=== PATIENT | male | born 1950 | race Asian ===

== ENCOUNTER 2016-04-19 15:24 | Inpatient (IN) | payer BC, MEDICARE ==
[~2016-04-19] VITALS: Ht 167.6 cm; Wt 74.0 kg
[2016-04-19] MEDS ORDERED: ASPIRIN 81 MG TAB PO STA (15:33)
[2016-04-19] MEDS ORDERED: morphine 4 MG/ML VIAL IV STA (15:33)
[2016-04-19] MEDS ORDERED: NITROGLYCERIN 2% 1 GM OINT PKT TD STA (15:33)
[2016-04-19] MEDS ORDERED: ONDANSETRON 4 MG INJ IV STA (15:33)
[2016-04-19 15:53] LABS: BASOPHILS % 0.3 % (0.0-2.0); EOSINOPHILS # 0.1 10^3/ul (0.0-0.5); EOSINOPHILS % 1.1 % (0.0-7.0); HEMATOCRIT 46.6 % (42.0-52.0); LYMPHOCYTES # 1.4 10^3/ul (0.8-2.9); LYMPHOCYTES % 15.6 % (15.0-51.0); MEAN CORPUSCULAR HEMOGLOBIN 30.5 pg (29.0-33.0); MEAN CORPUSCULAR HGB CONC 34.4 g/dl (32.0-37.0); MEAN CORPUSCULAR VOLUME 88.6 fl (82.0-101.0); MEAN PLATELET VOLUME 8.2 fl (7.4-10.4); MONOCYTE # 0.6 10^3/ul (0.3-0.9); NEUTROPHIL # 6.9 10^3/ul (1.6-7.5); PLATELET COUNT 225 10^3/UL (140-440); RED BLOOD COUNT 5.26 10^6/ul (4.70-6.10); RED CELL DISTRIBUTION WIDTH 13.2 % (11.5-14.5); UNCORRECTED WBC 9.1 10^3/ul (4.8-10.8); WHITE BLOOD COUNT 9.1 10^3/ul (4.8-10.8)
[2016-04-19 15:54] LABS: CONDITION 1
[2016-04-19 16:03] LABS: INR 0.96; PROTIME 12.8 Sec (12.2-14.2)
[2016-04-19 16:04] LABS: PARTIAL THROMBOPLASTIN TIME 40.2 Sec (25.0-35.0)
[2016-04-19 16:05] LABS: CREATININE 0.88 mg/dl (0.61-1.24)
[2016-04-19 16:06] LABS: CALCIUM 9.3 mg/dl (8.4-10.2)
[2016-04-19 16:20] LABS: TROPONIN-I 3.97 ng/ml (0.00-0.12)
[2016-04-19] MEDS ORDERED: ENOXAPARIN 80 MG/0.8 ML SYG SC SCH (16:30)
--- NOTE | 2016-04-19 16:51 | RADRPT ---
PROCEDURE: XR Chest. CLINICAL INDICATION: Chest pain TECHNIQUE: Chest AP portable. COMPARISON: No comparison available. FINDINGS: The mediastinal structures are unremarkable. There is mild cardiomegaly. The pulmonary vascularity is normal. The lung do are unremarkable. No consolidation is identified. The pleural spaces are unremarkable. The axial skeleton is unremarkable. IMPRESSION: Mild cardiomegaly No active intrathoracic disease. RPTAT: HGDB .Sai Soares MD, MD Date Time Electronically viewed and signed by .Sai Soares MD, MD on 04/19/2016 16:51 .B/
--- NOTE | 2016-04-19 16:59 | ERA ---
ER Documentation Chief Complaint Date/Time DATE: 04/19/16 TIME: 16:53 Chief Complaint BROUGHT IN VIA EMS DUE TO CHEST PAIN HPI 66-year-old male history of remote smoking, no hypertension or diabetes who presents with chest pain. He describes approximately 1 week of cough and congestion that is dry and nonproductive. He completed an outpatient course of antibiotics. Over the past 48 hours he does note worsening chest pain. He describes it as pressure-like but it is worse with movement and worse with rotation. He denies any pleuritic pain, no calf pain. He occasionally has exertional symptoms. The patient was given aspirin and nitroglycerin in the field with no significant improvement but upon arrival the patient is mostly chest pain-free. ROS All systems reviewed and are negative except as per history of present illness. PMhx/Soc Medical and Surgical Hx: pt denies Medical Hx, pt denies Surgical Hx Hx Alcohol Use: No Hx Substance Use: No Hx Tobacco Use: Yes (quit 20 yrs) Smoking Status: Former smoker FmHx Family History: No diabetes Physical Exam Vitals Vital Signs Date Time Temp Pulse Resp B/P Pulse Ox O2 Delivery O2 Flow Rate FiO2 04/19/16 15:46 98.5 110 18 154/115 97 04/19/16 15:45 Nasal Cannula 2 04/19/16 15:45 72 20 139/88 98 Room Air Physical Exam General: Well developed, well nourished, no acute distress Head: Normocephalic, atraumatic. Eyes: Pupils equally reactive, EOM intact ENT: Moist mucous membranes Neck: Supple, no lymphadenopathy Respiratory: Lungs clear bilaterally, no distress Cardiovascular: RRR, no murmurs, rubs, or gallops Abdominal: Soft, non-tender, non-distended, no peritoneal signs : Deferred MSK: No edema, no unilateral swelling, 5/5 strength Neurologic: Alert and oriented, moving all extremities, normal speech, no focal weakness, no cerebellar signs Skin: No rash Psych: Normal mood Result Diagram: 04/19/16 1545 04/19/16 1545 Results 24 hrs Laboratory Tests Test 04/19/16 15:45 Activated Partial Thromboplast Time 40.2Sec Anion Gap 18 Basophils # 0.010^3/ul Basophils % 0.3% Blood Urea Nitrogen 18mg/dl Calcium Level 9.3mg/dl Carbon Dioxide Level 24mmol/L Chloride Level 105mmol/L Creatinine 0.88mg/dl Eosinophils # 0.110^3/ul Eosinophils % 1.1% Glucose Level 119mg/dl Hematocrit 46.6% Hemoglobin 16.0g/dl INR International Normalized Ratio 0.96 Lymphocytes # 1.410^3/ul Lymphocytes % 15.6% Mean Corpuscular Hemoglobin 30.5pg Mean Corpuscular Hemoglobin Concent 34.4g/dl Mean Corpuscular Volume 88.6fl Mean Platelet Volume 8.2fl Monocytes # 0.610^3/ul Monocytes % 7.0% Neutrophils # 6.910^3/ul Neutrophils % 76.0% Nucleated Red Blood Cells # 0.010^3/ul Nucleated Red Blood Cells % 0.0/100WBC Platelet Count 71581^3/UL Potassium Level 4.0mmol/L Prothrombin Time 12.8Sec Prothrombin Time Ratio 1.0 Red Blood Count 5.2610^6/ul Red Cell Distribution Width 13.2% Sodium Level 143mmol/L Troponin I 3.970ng/ml White Blood Count 9.110^3/ul Current Medications Medications (Trade) Dose Ordered Sig/Shahnaz Route PRN Reason Start Time Stop Time Status Last Admin Dose Admin Aspirin (Aspirin) 162 mg ONCE STAT PO 04/19/16 15:33 04/19/16 15:35 DC 04/19/16 16:30 Nitroglycerin (Nitroglycerin 2% Oint) 1 inch ONCE STAT TD 04/19/16 15:33 04/19/16 15:35 DC 04/19/16 16:30 Morphine Sulfate (morphine) 4 mg ONCE STAT IV 04/19/16 15:33 04/19/16 15:35 DC 04/19/16 16:31 Ondansetron HCl (Zofran Inj) 4 mg ONCE STAT IV 04/19/16 15:33 04/19/16 15:35 DC 04/19/16 16:30 Enoxaparin Sodium (Lovenox) 70 mg ONCE SC 04/19/16 16:30 04/19/16 16:47 Procedures/MDM EKG, MONITORS, & DIAGNOSTIC IMAGING: EKG: I reviewed and interpreted a 12-lead EKG. Rhythm: Normal sinus rhythm Ectopy: None Intervals: No abnormalities ST segments: Borderline ST segment elevation in lead V3, no contiguous lead ST elevations T waves: T-wave inversions in the precordial lateral leads Repeat EKG: EKG: I reviewed and interpreted a 12-lead EKG. Rhythm: Normal sinus rhythm Ectopy: None Intervals: No abnormalities ST segments: Borderline ST segment elevation in lead V3, no contiguous lead ST elevations, unchanged T waves: T-wave inversions in the precordial lateral leads Chest x-ray: I reviewed and interpreted a 1 view of the chest Mediastinum: No enlargement Cardiac silhouette: No cardiomegaly Airspace: Clear lung do bilaterally without evidence of pneumothorax Bones: No evidence of fracture LAB INTERPRETATION: Elevated troponin MEDICAL DECISION MAKING: The patient's history, physical exam and clinical presentation is concerning for possible cardiogenic etiology and acute coronary syndrome. The patient's EKG was initially very concerning for possible acute cardiac injury. However, the patient's EKG only had ST segment elevation greater than 1 mm and one lead. T-wave inversions were also concerning. However, additionally the patient had atypical presentation given that he had very reproducible symptoms. The patient was chest pain-free upon arrival. Regardless emergent phone call to cardiology was made. Based on the patient's clinical exam and history and risk factors, I have a much lower clinical concern for pulmonary embolism, acute aortic dissection, pneumothorax, pneumonia, cardiac tamponade HEART Score: 6 MACE Rate: 16.6% Shared Decision Making: We had a conversation regarding risk stratification, MACE rate, and the risks, benefits, alternatives of disposition planning options. Disposition planning: Inpatient hospitalization is necessary and recommended ER COURSE: Upon arrival the patient's EKG was very concerning for possible anterior lesion. However, the patient was chest pain-free. Please see timing section below however I had a conversation with Dr. Reed, the on-call manager semiconductor. She was kind enough to review the patient's EKG and history. She felt that this did not meet STEMI code activation criteria. Given that it was only 1-lead I agree and the patient was chest pain-free. His repeat EKG was unchanged. His troponin however came back elevated. Dr. Reed was again notified. She states that the patient will benefit from inpatient cardiology consultation and likely nonemergent cath. She recommends medical optimization and Lovenox. I believe this is reasonable. The patient is chest pain-free, hemodynamically stable and resting comfortably. Timing section: EKG #1 at 1532 EKG #2 at [address] Reed at [address] Reed at 1621 The patient had his aspirin completed, he was given nitroglycerin, pain medication as well as Lovenox as documented above. I kept the patient and/or family informed of laboratory and diagnostic imaging results throughout the emergency room course. DISPOSITION PLAN: Stable for telemetry admission. Given that the patient has no active chest pain , no dynamic EKG changes. CONSULTATION: Accepting care team and consultations: I discussed the current laboratory data, diagnostic imaging and emergency care provided. Admitting team: Dr. Marks Admitting team indication: Insurance directed Consulting services: Cardiology, Dr. Reed Critical Care Note: Total time: 32 minutes Indication/Organ System Threat: Non-ST elevation myocardial infarction I spent the above amount of critical care time with the patient, not including billable procedures. This included chart review, consultations, repeat bedside evaluations, and titration of appropriate medications to prevent cardiopulmonary or respiratory collapse. Departure Diagnosis: Primary Impression: Non-ST elevation myocardial infarction (NSTEMI) Additional Impression: Abnormal EKG Condition: Stable JARVIS ASH MD Apr 19, 2016 16:59
[2016-04-19] MEDS ORDERED: LEVO750T8 PO (17:41)
[2016-04-19] MEDS ORDERED: ACETAMINOPHEN 325 MG TAB PO PRN ×2 (18:30→19:30)
[2016-04-19] MEDS ORDERED: ONDANSETRON 4 MG INJ IV PRN ×2 (18:30→19:30)
[2016-04-19] MEDS ORDERED: HEPARIN 1000 UNITS/ML 10 ML INJ IV ONE (19:30)
[2016-04-19] MEDS ORDERED: HEPARIN 1000 UNITS/ML 10 ML INJ IV PRN (19:30)
[2016-04-19] MEDS ORDERED: morphine 4 MG/ML VIAL IV PRN (19:30)
[2016-04-19] MEDS ORDERED: NITROGLYCERIN (SL) 0.4 MG TAB SL PRN (19:30)
[2016-04-19] MEDS ORDERED: NACL 0.9% 3 ML SYG IV SCH (19:30)
[2016-04-19] MEDS ORDERED: DOCUSATE SODIUM 100 MG CAP PO PRN (19:30)
[2016-04-19] MEDS ORDERED: HEPARIN 25000 UNITS/250 ML 250 ML IV SCH (19:30)
[2016-04-19] MEDS ORDERED: morphine 2 MG INJ IV PRN (19:30)
--- NOTE | 2016-04-19 20:04 | HP ---
DATE OF ADMISSION: 04/19/2016 CHIEF COMPLAINT: Chest pain. HISTORY OF PRESENT ILLNESS: The patient is a 66-year-old male with no medical history. The patient had been complaining of a fever 3 days ago as well as a cough. He was given antibiotics and a coug h syrup. The patient's chest pain improved when he started the cough syrup but it returned again th afternoon. The patient was picked up by paramedics, was given nitroglycerin and he stated that h is chest pain did improve after the nitroglycerin. In the ED the patient did have mild elevation of the troponin at 3.9, questionable ST elevation in V3 but it was not noted in any other leads and no t reciprocated. Dr. Reed of interventional cardiology was called as she was on STEMI call and d id not feel that there was a STEMI and recommended inpatient cardiology evaluation. The patient cur rently does report some pressure-like chest pain in the upper chest. There is no radiation of pain. There is no cardiac history in the past. He denies any shortness of breath, diaphoresis, nausea, vomiting, fevers or chills at this time. PAST MEDICAL HISTORY: Denies. PAST SURGICAL HISTORY: Denies. HOME MEDICATIONS: Was just given Phenergan with codeine recently as well as the antibiotic, otherwi se no chronic home meds. ALLERGIES: NO KNOWN DRUG ALLERGIES. FAMILY HISTORY: Denies any cardiac history. SOCIAL HISTORY: Denies any alcohol, tobacco, or drug abuse. REVIEW OF SYSTEMS: A 12-point review of systems negative except for that as listed in HPI. PHYSICAL EXAMINATION: VITAL SIGNS: Temperature is 98.5, pulse 97, respirations 20, blood pressure 116/79, saturation 96% on room air. GENERAL: No acute distress, alert and oriented. HEENT: Normocephalic, atraumatic. LUNGS: Clear to auscultation. CARDIOVASCULAR: Regular rate and rhythm. ABDOMEN: Nondistended, nontender, soft. EXTREMITIES: No clubbing, cyanosis, or edema. LABORATORIES: White count is 9.1, hemoglobin is 6.0. Chemistry within normal limits except for tro ponin 3.9, anion gap is 18. INR is 0.96. DIAGNOSTICS: Chest x-ray shows mild cardiomegaly, no active intrathoracic disease. EKG shows sinus rhythm, borderline ST segment elevation in lead V3. No lead ST elevations. T-wave inversion s in precordial lateral leads. ASSESSMENT AND PLAN: 1. Non-ST elevation myocardial infarction. The patient will start on a heparin drip. No indicatio n for urgent cardiac catheterization. We will consult Dr. tSearns for inpatient cardiology evalu ation. Also, put the patient on statin. We will check liver profile as well as A1c. Give the alba ent morphine and nitroglycerin and a beta shaina. 2. Prophylaxis. Heparin drip. Dictated By: ERI DIXON MD BS/NTS Conf#: [id number] DID#: [id number]
[2016-04-19 20:07] LABS: INR 0.98
[2016-04-19 20:08] LABS: PARTIAL THROMBOPLASTIN TIME 41.1 Sec (25.0-35.0)
[2016-04-19 20:29] LABS: CK-MB 11.9 ng/ml (0.0-2.4); TROPONIN-I 4.02 ng/ml (0.00-0.12)
[2016-04-19 21:42] VITALS: PULSE 87
[2016-04-19 21:45] VITALS: Ht 167.6 cm; Wt 74.0 kg
[2016-04-19] MEDS: DEXTROSE 5%-0.45% NACL 1,000 ML IV SCH (22:05)
[2016-04-19] MEDS: ATORVASTATIN 80 MG TAB PO SCH (22:05)
[2016-04-20] VITALS (28 sets, daily range): BP systolic 104–146; BP diastolic 62–105; PULSE 67–106; RESP 11–23
[2016-04-20] MEDS ORDERED: LORAZEPAM 2 MG INJ IV ONE (02:40)
[2016-04-20 03:40] LABS: BASOPHILS % 0.5 % (0.0-2.0); EOSINOPHILS # 0.2 10^3/ul (0.0-0.5); HEMATOCRIT 44.3 % (42.0-52.0); LYMPHOCYTES # 2.5 10^3/ul (0.8-2.9); MEAN CORPUSCULAR HEMOGLOBIN 30.5 pg (29.0-33.0); MEAN CORPUSCULAR HGB CONC 33.9 g/dl (32.0-37.0); MEAN CORPUSCULAR VOLUME 90.1 fl (82.0-101.0); MEAN PLATELET VOLUME 8.3 fl (7.4-10.4); MONOCYTE # 0.9 10^3/ul (0.3-0.9); MONOCYTES % 9.1 % (0.0-11.0); NEUTROPHIL # 6.7 10^3/ul (1.6-7.5); NEUTROPHILS % 64.4 % (39.0-77.0); PLATELET COUNT 221 10^3/UL (140-440); RED BLOOD COUNT 4.91 10^6/ul (4.70-6.10); UNCORRECTED WBC 10.4 10^3/ul (4.8-10.8); WHITE BLOOD COUNT 10.4 10^3/ul (4.8-10.8)
[2016-04-20 03:45] LABS: ALBUMIN 3.5 g/dl (3.3-4.9)
[2016-04-20 03:48] LABS: ALBUMIN/GLOBULIN RATIO 1.09; BILIRUBIN,INDIRECT 0.4 mg/dl (0-1.1); BILIRUBIN,TOTAL 0.4 mg/dl (0.2-1.3); CREATININE 0.93 mg/dl (0.61-1.24); TOTAL PROTEIN 6.7 g/dl (6.1-8.1)
[2016-04-20 03:49] LABS: CHOL/HDL RATIO 5.5 RATIO; MAGNESIUM 1.9 mg/dl (1.7-2.5); PHOSPHORUS 5.1 mg/dl (2.5-4.9)
[2016-04-20 04:02] LABS: CK-MB 30.9 ng/ml (0.0-2.4); TROPONIN-I 15.2 ng/ml (0.00-0.12)
[2016-04-20 04:18] LABS: CONDITION 1
[2016-04-20 04:20] LABS: T3 UPTAKE 32.7 % (23.5-40.5)
[2016-04-20] MEDS ORDERED: HEPARIN 1000 UNITS/ML 10 ML INJ ONE (06:56)
[2016-04-20] MEDS ORDERED: MIDAZOLAM 1 MG/ML 2 ML INJ ONE (06:56)
[2016-04-20] MEDS ORDERED: IODIXANOL LOCM 100 ML BTL ONE (06:56)
[2016-04-20] MEDS ORDERED: LIDOCAINE 1% (MDV) 20 ML INJ ONE (06:56)
[2016-04-20] MEDS ORDERED: IODIXANOL LOCM 50 ML BTL ONE (06:56)
[2016-04-20] MEDS ORDERED: SOD CHLORIDE 0.9% 500 ML ONE (06:57)
[2016-04-20] MEDS ORDERED: FENTAnyl 50 MCG/ML VIAL ONE (06:57)
[2016-04-20] MEDS ORDERED: VERAPAMIL 5 MG INJ ONE (06:57)
[2016-04-20] MEDS ORDERED: NITROGLYCERIN (IC) 100 MCG/ML INJ ONE (06:57)
--- NOTE | 2016-04-20 07:25 | CONS ---
Date/Time of Note Date/Time of Note DATE: 04/20/16 TIME: 07:19 Assessment/Plan Assessment/Plan Chief Complaint/Hosp Course NSTEMI: Trop up to 15. Cath this am for high risk ACS. Suspect LAD. Pt and agreeable -to cath this am -will adjust cardiac meds post procedure Problems: Consultation Date/Type/Reason Admit Date/Time Apr 19, 2016 at 18:03 Date of Consultation: Apr 20, 2016 Type of Consultation: Cardiology Reason for Consultation NSTEMI Referring Provider: ERI DIXON Hx of Present Illness 66 yo M with no known past medical history who presented with cough and chest pain and was found to have an NSTEMI. The pt notes that he has been having on and off chest pressure since Sunday (3 days ago). No SOB. Possible fevers. His trops have continued to rise and are up to 15 this am. He is currently asymptomatic. He understands the risks/benefits of cardiac cath and wishes to proceed. per HPI Past Medical History Medical History: no pertinent history Social History Smoking Status: Former smoker Exam/Review of Systems Vital Signs Vitals Vital Signs Date Time Temp Pulse Resp B/P Pulse Ox O2 Delivery O2 Flow Rate FiO2 04/20/16 04:26 87 04/20/16 04:00 98.2 20 124/66 97 Room Air 04/19/16 21:00 2.0 Intake and Output 04/19/16 04/19/16 04/20/16 15:00 23:00 07:00 Intake Total 950 ml Output Total 750 ml Balance 200 ml Exam Constitutional: alert, oriented Psych: no complaints Head: atraumatic, normocephalic Neck: jvd (7cm) Respiratory: crackles/rales (mild) Cardiovascular: regular rate and rhythm, No edema, No systolic murmur Gastrointestinal: non-tender, soft Extremities: normal pulses Neurological: nl mental status, nl speech Skin: No rash or lesions Results EKG: V3 with mild YULISSA and q wave, V4-V6 with deep TW inversions. Result Diagram: 04/20/16 0308 04/20/16 0300 Results 24 hrs Laboratory Tests Test 04/19/16 15:45 04/19/16 19:20 04/19/16 20:00 04/20/16 03:00 Activated Partial Thromboplast Time 40.2 H 41.1 H Anion Gap 18 H 15 Basophils # 0.0 Basophils % 0.3 Blood Urea Nitrogen 18 19 Calcium Level 9.3 9.0 Carbon Dioxide Level 24 27 Chloride Level 105 107 Creatinine 0.88 0.93 Eosinophils # 0.1 Eosinophils % 1.1 Glucose Level 119 106 Hematocrit 46.6 Hemoglobin 16.0 INR International Normalized Ratio 0.96 0.98 Lymphocytes # 1.4 Lymphocytes % 15.6 Mean Corpuscular Hemoglobin 30.5 Mean Corpuscular Hemoglobin Concent 34.4 Mean Corpuscular Volume 88.6 Mean Platelet Volume 8.2 Monocytes # 0.6 Monocytes % 7.0 Neutrophils # 6.9 Neutrophils % 76.0 Nucleated Red Blood Cells # 0.0 Nucleated Red Blood Cells % 0.0 Platelet Count 225 Potassium Level 4.0 4.0 Prothrombin Time 12.8 13.0 Prothrombin Time Ratio 1.0 1.0 Red Blood Count 5.26 Red Cell Distribution Width 13.2 Sodium Level 143 145 H Troponin I 3.970 *H 4.020 *H White Blood Count 9.1 Creatine Kinase 382 H Creatine Kinase Index 3.1 Creatinine Kinase MB (Mass) 11.90 H Alanine Aminotransferase (ALT/SGPT) 41 Albumin 3.5 Albumin/Globulin Ratio 1.09 Alkaline Phosphatase 61 Aspartate Amino Transf (AST/SGOT) 105 H Cholesterol Level 150 Cholesterol/HDL Ratio 5.5 Direct Bilirubin 0.00 Free Thyroxine Index 2.71 Globulin 3.20 HDL Cholesterol 27 L Indirect Bilirubin 0.4 LDL Cholesterol, Calculated 88 Magnesium Level 1.9 Phosphorus Level 5.1 H Thyroxine (T4) 8.3 Total Bilirubin 0.4 Total Protein 6.7 Triglycerides Level 174 H Triiodothyronine (T3) Uptake 32.7 Test 04/20/16 03:08 Basophils # 0.0 Basophils % 0.5 Creatine Kinase 447 H Creatine Kinase Index 6.9 Creatinine Kinase MB (Mass) 30.90 H Eosinophils # 0.2 Eosinophils % 2.0 Hematocrit 44.3 Hemoglobin 15.0 Hemoglobin A1c 6.0 H Lymphocytes # 2.5 Lymphocytes % 24.0 Mean Corpuscular Hemoglobin 30.5 Mean Corpuscular Hemoglobin Concent 33.9 Mean Corpuscular Volume 90.1 Mean Platelet Volume 8.3 Monocytes # 0.9 Monocytes % 9.1 Neutrophils # 6.7 Neutrophils % 64.4 Nucleated Red Blood Cells # 0.0 Nucleated Red Blood Cells % 0.0 Platelet Count 221 Red Blood Count 4.91 Red Cell Distribution Width 13.0 Troponin I 15.200 *H White Blood Count 10.4 Medications Medications Current Medications Dextrose/Sodium Chloride (D5-1/2ns) 1,000 ml @ 80 mls/hr [id number] IV Last administered on 04/19/16 22:05; Admin Dose 80 MLS/HR; Start 04/19/16 at 19:27 Ondansetron HCl (Zofran Inj) 4 mg Q6H PRN IV NAUSEA AND/OR VOMITING; Start at 19:30 Acetaminophen (Tylenol Tab) 650 mg Q6H PRN PO PAIN LEVEL 1-3 OR FEVER; Start at 19:30 Docusate Sodium (Colace) 100 mg Q12H PRN PO CONSTIPATION; Start 04/19/16 at 19: 30 Zolpidem Tartrate (Ambien) 5 mg QHS PRN PO SLEEP; Start 04/19/16 at 19:30 Nitroglycerin (Nitroglycerin (Sl Tab) 0.4 Mg) 1 tab Q5M PRN SL CHEST PAIN; Start 04/19/16 at 19:30 Morphine Sulfate (morphine) 2 mg Q2H PRN IV PAIN LEVEL 4-6; Start 04/19/16 at 19:30 Morphine Sulfate (morphine) 4 mg Q2H PRN IV PAIN LEVEL 7-10; Start 04/19/16 at 19:30 Atorvastatin Calcium (Lipitor) 80 mg HS PO Last administered on 04/19/16 22:05 ; Admin Dose 80 MG; Start 04/19/16 at 21:00 Carvedilol (Coreg) 6.25 mg BID PO ; Start 04/19/16 at 21:00 Heparin Sodium (Porcine) (Heparin (1000 Units/ml)) 4,000 unit ONCE ONCE IV ; Start 04/20/16 at 08:00; Stop 04/20/16 at 08:01 SANDRO BABIN Apr 20, 2016 07:25
[2016-04-20] MEDS ORDERED: HEPARIN 1000 UNITS/ML 10 ML INJ IV ONE (08:00)
[2016-04-20] MEDS ORDERED: HEPARIN 25000 UNITS/250 ML 250 ML IV SCH (08:00)
[2016-04-20] MEDS ORDERED: ASPIRIN 325 MG TAB PO ONE (08:30)
[2016-04-20] MEDS ORDERED: ONDANSETRON 4 MG INJ IV PRN (08:30)
--- NOTE | 2016-04-20 08:48 | OPR ---
Date/Time of Note Date/Time of Note DATE: 04/20/16 TIME: 08:34 Operative Report Free Text/Dictation Procedure Date: 04/20/16 Procedures Performed: 1)Selective left and right coronary angiography. Pre-operative Diagnosis:NSTEMI Post-operative Diagnosis:NSTEMI, significant 3V CAD requiring likely CABG Indications:66 yo M with prior tobacco use who presented with chest pain and was found to have an NSTEMI (trop 15). Description of Procedure: After informed consent, the patient was brought to the cardiac catheterization lab. The procedure site was prepped and draped in usual manner. The patient was premedicated with versed 1 mg and fentanyl 25 mcg. 2 mL lidocaine was injected into the right wrist. Next using the posterior wall technique, the 6/ 5 lithuanian sheath was inserted into the right radial artery. Next using the JL3.5 and JR4, selective angiography of the left and right coronary arteries were obtained. The pigtail was then advanced into the ventricle and hemodynamics obtained. Left ventricle angiography was not obtained due to elevated LVEDP. Next all equipment was removed and hemostasis was obtained by TR band. 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 Reed for likely CABG -start heparin drip 2 hours after TR band is removed. Though pt is asymptomatic , there is slightly decreased flow to the LAD -give ASA 325mg now and 81mg daily until surgery -lipitor -coreg -check echo (LV gram not done due to elevated LVEDP) -may consider diuresis but elevated EDP likely from ischemia and pt does not have symptoms of heart failure SANDRO BABIN Apr 20, 2016 08:48
[2016-04-20] MEDS: DEXTROSE 5%-0.45% NACL 1,000 ML IV SCH ×2 (09:58→20:10)
--- NOTE | 2016-04-20 12:39 | PN ---
Date/Time of Note Date/Time of Note DATE: 04/20/16 TIME: 12:39 Assessment/Plan Lines/Catheters IV Catheter Type (from Nrs): Saline Lock Shine in Place (from Nrsg): No Assessment/Plan Assessment/Plan pt seen and examined. LA with severe 3v CAD. plan for cabb Sunday. check carotids Exam/Review of Systems Vital Signs Vitals Vital Signs Date Time Temp Pulse Resp B/P Pulse Ox O2 Delivery O2 Flow Rate FiO2 04/20/16 11:30 88 12 116/85 92 04/20/16 11:00 Room Air 04/20/16 10:00 98.0 04/19/16 21:00 2.0 Intake and Output 04/19/16 04/19/16 04/20/16 15:00 23:00 07:00 Intake Total 950 ml Output Total 750 ml Balance 200 ml Results Result Diagram: 04/20/16 0308 04/20/16 0300 PAWEL WOODS MD Apr 20, 2016 12:39
--- NOTE | 2016-04-20 13:19 | CONS ---
DATE OF ADMISSION: 04/19/2016 DATE OF CONSULTATION: 04/20/2016 REQUESTING PHYSICIAN: Dr. Angelito Stearns CONSULTING PHYSICIAN: Dr Conner Reed REASON FOR CONSULTATION: Evaluate for CABG. HISTORY OF PRESENT ILLNESS: The patient is a 66-year-old gentleman who has been otherwise healthy w ith no history of hypertension or diabetes, was having chest pain for the last several weeks. He wa s admitted and had an elevated troponin, which started at 3 and currently is up to 15. He underwent coronary angiogram today which shows severe 3-vessel coronary artery disease with a totally occlude d RCA, high grade proximal LAD stenosis of approximately 90% and high grade ramus intermedius and ci rcumflex stenosis. His ejection fraction is about 40% to 45% by echo. No evidence of MR. We are a sked to see him regarding urgent CABG. PAST MEDICAL HISTORY: Denies diabetes, hypertension. PAST SURGICAL HISTORY: None. ALLERGIES: NONE. FAMILY HISTORY: No history of early coronary artery disease. There is a history of hypertension. MEDICATIONS: 1. Coreg. 2. Heparin. 3. Aspirin. 4. Lipitor. REVIEW OF SYSTEMS HEENT: Denies any visual or auditory problems. RESPIRATORY: Denies shortness of breath, wheezing. He does have a history of asthma and history of pneumonia in the past. CARDIAC: See HPI. GENITOURINARY: Denies hematuria or dysuria. GASTROINTESTINAL: Denies any nausea, vomiting, diarrhea. SKIN: Denies any lesions or rashes. EXTREMITIES: Denies any edema, claudication. NEUROLOGIC: Denies TIA or headaches. PSYCHIATRIC: Denies depression, anxiety. PHYSICAL EXAMINATION: GENERAL APPEARANCE: The patient is alert and awake, in no distress. VITAL SIGNS: Heart rate of 88, blood pressure 116/85, respiratory rate 12. HEENT: Pupils equal, round, react to light. NECK: Supple, no adenopathy, no bruits. LUNGS: Clear to auscultation. No wheezing. CARDIOVASCULAR: Regular rate and rhythm without murmurs. ABDOMEN: Soft, nontender, no organomegaly. EXTREMITIES: 2+ pulses. SKIN: No edema. NEUROLOGIC: Cranial nerves II through XII intact. Motor and sensory intact. SKIN: No lesions or rashes. PSYCHIATRIC: Mood and affect normal. MUSCULOSKELETAL: No back pain or joint tenderness. LABORATORY DATA: His white count is 9 with a hematocrit of 44 and a platelet count of 221. His cre atinine is normal at 0.93. His current troponin is 15.2. ASSESSMENT AND PLAN: This is a 66-year-old gentleman status post non-ST elevation myocardial infarc tion with 3-vessel coronary artery disease who will need coronary revascularization. I explained th e benefits, the risks, alternatives to the patient and his risks are but not limited to bleedin g, infection, stroke, myocardial infarction, renal or respiratory failure and . He understands and wishes to proceed with surgery. I will schedule him for surgery on Sunday. We will obtain a c arotid duplex and plan for surgery Sunday. Dictated By: CONNER REED MD AA/NTS Conf#: [id number] DID#: [id number] CC: ANGELITO STEARNS MD;*EndCC*
--- NOTE | 2016-04-20 13:50 | RADRPT ---
PROCEDURE: US Carotids. CLINICAL INDICATION: Dizziness TECHNIQUE: Multiple sonographic of the carotid arteries were obtained utilizing pacheco scale imaging . Color and Doppler imaging was performed. The images were reviewed on a PACS workstation. COMPARISON: No prior studies are available for comparison. FINDINGS: Location Right Left CCA 59 cm/sec 59 cm/sec Prox ICA 43 cm/sec 56 cm/sec Mid ICA 47 cm/sec 55 cm/sec Dist ICA 57 cm/sec 66 cm/sec ECA 57 cm/sec 54 cm/sec ICA/CCA 1.1 1.0 Antegrade flow is seen within the vertebral arteries bilaterally. Mild scattered plaque is seen wit hin the carotid system bilaterally. No hemodynamically significant stenosis or occlusion is identif ied. There is diffuse bilateral intimal wall thickening. IMPRESSION: 1. Mild scattered plaque without evidence for hemodynamically significant stenosis - validated veloc ity measurements with angiographic measurements, velocity criteria are extrapolated from diameter da ta as defined by the Society of Radiologists in Ultrasound Consensus Conference Radiology 2003; 229; 340-346. This study does indirectly reference the measurement of the distal ICA diameter as the den ominator for stenosis measurement. 2. Antegrade flow seen within the vertebral arteries bilaterally. 3. Diffuse bilateral intimal wall thickening. SRU Consensus Conference Criteria for the Diagnosis of Carotid Artery Stenosis Degree of Stenosis, % ICA PSV, cm/sec Plaque Estimate, % ICA/CCA PSV Ratio Normal <125 None <2.0 <50 <125 <50 <2.0 50 69 125-230 >50 2.0-4.0 >70 but less than near occlusion >230 >50 <4.0 Near occlusion High, low, or undetectable Visible Variable Total occlusion Undetectable Visible, no detectable lumen Not applicable *Cartoid artery stenosis: pacheco-scale and Doppler US diagnosis. Society of Radiologists in Ultrasound Consensus Conference. Radiology 2003; 229: 340-346 RPTAT: JJ .Walter Coley MD, MD Date Time Electronically viewed and signed by .Walter Coley MD, on 04/20/2016 13:49 .A/
[2016-04-20] MEDS ORDERED: HEPARIN 1000 UNITS/ML 10 ML INJ IV PRN (14:00)
--- NOTE | 2016-04-20 14:35 | RADRPT ---
Echocardiogram Report Patient Name: JOHN AMATO Gender: Male Date: 1950 Study Date: 20-Apr-2016 Psychiatric Nurse Practitioner: Pawan Chiu [facility] Location: 510 Ref. Physician: ERI DIXON Quality: Adequate Procedures: Transthoracic echocardiogram with complete 2D, M-Mode, and doppler examination. Indications: NSTEMI. 2D/M Mode Doppler Measurement Value Normal Ranges Measurement Value Normal Ranges LVIDd 2D 5.1 3.5 - 5.6 cm AV Peak Jay Jay 1.1 m/sec LVIDs 2D 4.4 2.1 - 4.1 cm AV Peak PG 4.4 mmHg LVPWd 2D 1.1 0.6 - 1.1 cm LVOT Peak Jay Jay 0.6 m/sec IVSd 2D 1.2 0.6 - 1.1 cm LVOT Peak PG 1.4 mmHg AoR Diam 2D 2.7 2.0 - 3.7 cm MV E Peak Jay Jay 0.8 m/sec EDV 2D 126.1 cm3 MV A Peak Jay Jay 0.9 m/sec ESV 2D 87.0 cm3 MV E/A 0.8 LA Dimen 2D 4.1 2.3 - 4.0 cm MV Decel Time 89 msec MV Decel [place] 9 MV E/A 0.8 Findings Left Ventricle: Normal left ventricular cavity size. Normal left ventricular wall thickness. Severe left ventricular systolic dysfunction. Ejection fraction is visually estimated at 2530 %. Tissue Doppler/Mitral Doppler indices are consistent with impaired relaxation (Stage I diastolic dysfunction). Resting Segmental Wall Motion Analysis: Severe hypokinesis of the distal septum, distal anterior wall and entire apex, and entire inferior wall. Right Ventricle: Normal right ventricular size. Normal right ventricular systolic function. Left Atrium: There is mild enlargement of left atrium. LA Dimension4.10 cm. Right Atrium: The right atrium is normal in size. Mitral Valve: Mild mitral valve regurgitation. Aortic Valve: No hemodynamically significant aortic stenosis by doppler. Aortic cusps appear mildly calcified. Trace aortic valve regurgitation. Tricuspid Valve: Normal appearance of the tricuspid valve. Unable to obtain RVSP due to minimal presence of tricuspid regurgitation. Pulmonic Valve: Normal pulmonic valve appearance. There is trace pulmonic regurgitation. Pericardium: Normal pericardium with no significant pericardial effusion. Aorta: Normal aortic root. IVC: Normal size and no respiratory collapse consistent with elevated right atrial pressure. Conclusions 1.Normal left ventricular cavity size. Normal left ventricular wall thickness. Severe left ventricular systolic dysfunction. Ejection fraction is visually estimated at 25-30 %. Stage I diastolic dysfunction. Severe hypokinesis of the distal septum, distal anterior wall and entire apex, and entire inferior wall. 2.No significant valvular stenosis or regurgitation seen. 3.PAP could not be estimated. RA pressure is 8 mmHg. Electronically Signed By: Angelito Stearns 20-Apr-2016 14:34:50 -0800 Patient Name: JOHN AMATO Study Date: 20-Apr-2016 [id number]
[2016-04-20] MEDS: ENOXAPARIN 100 MG/ML SYG SC SCH (15:41)
--- NOTE | 2016-04-20 16:05 | PN ---
Date/Time of Note Date/Time of Note DATE: 04/20/16 TIME: 16:02 Assessment/Plan VTE Prophylaxis VTE Prophylaxis Intervention: LMWH Lines/Catheters IV Catheter Type (from Nrs): Saline Lock Urinary Cath still in place: No Assessment/Plan Chief Complaint/Hosp Course 1. 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 -CT surgery consult appreciated, plan is for CABG on Sunday -Cont ASA, Lovenox, BB, Statin Prophylaxis-Lovenox Problems: Subjective 24 Hr Interval Summary Constitutional: no complaints Exam/Review of Systems Vital Signs Vitals Vital Signs Date Time Temp Pulse Resp B/P Pulse Ox O2 Delivery O2 Flow Rate FiO2 04/20/16 12:00 83 04/20/16 11:30 12 116/85 92 04/20/16 11:00 Room Air 04/20/16 10:00 98.0 04/19/16 21:00 2.0 Intake and Output 04/19/16 04/19/16 04/20/16 15:00 23:00 07:00 Intake Total 950 ml Output Total 750 ml Balance 200 ml Exam Constitutional: alert, oriented Respiratory: clear to auscultation Cardiovascular: regular rate and rhythm Gastrointestinal: soft, No distended Musculoskeletal: nl extremities to inspection Results Result Diagram: 04/20/16 0308 04/20/16 0300 Results 24 hrs Laboratory Tests Test 04/19/16 19:20 04/19/16 20:00 04/20/16 03:00 04/20/16 03:08 Activated Partial Thromboplast Time 41.1 H INR International Normalized Ratio 0.98 Prothrombin Time 13.0 Prothrombin Time Ratio 1.0 Creatine Kinase 382 H 447 H Creatine Kinase Index 3.1 6.9 Creatinine Kinase MB (Mass) 11.90 H 30.90 H Troponin I 4.020 *H 15.200 *H Alanine Aminotransferase (ALT/SGPT) 41 Albumin 3.5 Albumin/Globulin Ratio 1.09 Alkaline Phosphatase 61 Anion Gap 15 Aspartate Amino Transf (AST/SGOT) 105 H Blood Urea Nitrogen 19 Calcium Level 9.0 Carbon Dioxide Level 27 Chloride Level 107 Cholesterol Level 150 Cholesterol/HDL Ratio 5.5 Creatinine 0.93 Direct Bilirubin 0.00 Free Thyroxine Index 2.71 Globulin 3.20 Glucose Level 106 HDL Cholesterol 27 L Indirect Bilirubin 0.4 LDL Cholesterol, Calculated 88 Magnesium Level 1.9 Phosphorus Level 5.1 H Potassium Level 4.0 Sodium Level 145 H Thyroxine (T4) 8.3 Total Bilirubin 0.4 Total Protein 6.7 Triglycerides Level 174 H Triiodothyronine (T3) Uptake 32.7 Basophils # 0.0 Basophils % 0.5 Eosinophils # 0.2 Eosinophils % 2.0 Hematocrit 44.3 Hemoglobin 15.0 Hemoglobin A1c 6.0 H Lymphocytes # 2.5 Lymphocytes % 24.0 Mean Corpuscular Hemoglobin 30.5 Mean Corpuscular Hemoglobin Concent 33.9 Mean Corpuscular Volume 90.1 Mean Platelet Volume 8.3 Monocytes # 0.9 Monocytes % 9.1 Neutrophils # 6.7 Neutrophils % 64.4 Nucleated Red Blood Cells # 0.0 Nucleated Red Blood Cells % 0.0 Platelet Count 221 Red Blood Count 4.91 Red Cell Distribution Width 13.0 White Blood Count 10.4 Medications Medications Current Medications Dextrose/Sodium Chloride (D5-1/2ns) 1,000 ml @ 80 mls/hr [id number] IV Last administered on 04/20/16 09:58; Admin Dose 80 MLS/HR; Start 04/19/16 at 19:27 Ondansetron HCl (Zofran Inj) 4 mg Q6H PRN IV NAUSEA AND/OR VOMITING; Start at 19:30 Acetaminophen (Tylenol Tab) 650 mg Q6H PRN PO PAIN LEVEL 1-3 OR FEVER; Start at 19:30 Docusate Sodium (Colace) 100 mg Q12H PRN PO CONSTIPATION; Start 04/19/16 at 19: 30 Zolpidem Tartrate (Ambien) 5 mg QHS PRN PO SLEEP; Start 04/19/16 at 19:30 Nitroglycerin (Nitroglycerin (Sl Tab) 0.4 Mg) 1 tab Q5M PRN SL CHEST PAIN; Start 04/19/16 at 19:30 Morphine Sulfate (morphine) 2 mg Q2H PRN IV PAIN LEVEL 4-6; Start 04/19/16 at 19:30 Morphine Sulfate (morphine) 4 mg Q2H PRN IV PAIN LEVEL 7-10; Start 04/19/16 at 19:30 Atorvastatin Calcium (Lipitor) 80 mg HS PO Last administered on 04/19/16 22:05 ; Admin Dose 80 MG; Start 04/19/16 at 21:00 Carvedilol (Coreg) 6.25 mg BID PO Last administered on 04/20/16 10:00; Admin Dose 6.25 MG; Start 04/19/16 at 21:00 Aspirin (Aspirin) 81 mg DAILY PO ; Start 04/21/16 at 09:00 Acetaminophen (Tylenol Tab) 650 mg Q4H PRN PO NON-CARDIAC PAIN LEVEL (1-3); Start 04/20/16 at 08:30 Morphine Sulfate (morphine) 2 mg Q2H PRN IV FOR NON CARDIAC PAIN (4-10); Start 04/20/16 at 08:30 Ondansetron HCl (Zofran Inj) 4 mg Q4H PRN IV NAUSEA AND/OR VOMITING; Start at 08:30 Enoxaparin Sodium (Lovenox) 75 mg Q12 SC Last administered on 04/20/16 15:41; Admin Dose 75 MG; Start 04/20/16 at 15:00 ERI DIXON Apr 20, 2016 16:05
[2016-04-20] MEDS: ATORVASTATIN 80 MG TAB PO SCH (20:09)
[2016-04-20 20:27] LABS: INR 1.01; PROTIME 13.3 Sec (12.2-14.2)
[2016-04-20 22:46] LABS: PARTIAL THROMBOPLASTIN TIME 49.9 Sec (25.0-35.0)
[2016-04-20] MEDS: ZOLPIDEM 5 MG TAB PO PRN (23:29)
[2016-04-21] VITALS (25 sets, daily range): BP systolic 108–146; BP diastolic 68–112; PULSE 73–99; RESP 8–19
[2016-04-21 06:35] LABS: BASOPHILS % 0.4 % (0.0-2.0); EOSINOPHILS # 0.2 10^3/ul (0.0-0.5); EOSINOPHILS % 2.6 % (0.0-7.0); HEMATOCRIT 42.4 % (42.0-52.0); HEMOGLOBIN 14.6 g/dl (14.0-18.0); LYMPHOCYTES # 2.2 10^3/ul (0.8-2.9); LYMPHOCYTES % 28.4 % (15.0-51.0); MEAN CORPUSCULAR HEMOGLOBIN 30.8 pg (29.0-33.0); MEAN CORPUSCULAR HGB CONC 34.3 g/dl (32.0-37.0); MEAN CORPUSCULAR VOLUME 89.8 fl (82.0-101.0); MEAN PLATELET VOLUME 8.8 fl (7.4-10.4); MONOCYTE # 0.6 10^3/ul (0.3-0.9); MONOCYTES % 8.2 % (0.0-11.0); NEUTROPHIL # 4.7 10^3/ul (1.6-7.5); NEUTROPHILS % 60.4 % (39.0-77.0); PLATELET COUNT 202 10^3/UL (140-440); RED BLOOD COUNT 4.73 10^6/ul (4.70-6.10); RED CELL DISTRIBUTION WIDTH 13.1 % (11.5-14.5); UNCORRECTED WBC 7.8 10^3/ul (4.8-10.8); WHITE BLOOD COUNT 7.8 10^3/ul (4.8-10.8)
[2016-04-21 06:50] LABS: POTASSIUM 3.7 mmol/L (3.5-5.1)
[2016-04-21 06:52] LABS: CONDITION 1
[2016-04-21 06:53] LABS: CALCIUM 8.7 mg/dl (8.4-10.2); CREATININE 0.86 mg/dl (0.61-1.24)
[2016-04-21] MEDS: ASPIRIN 81 MG TAB PO SCH (08:20)
[2016-04-21] MEDS: ENOXAPARIN 100 MG/ML SYG SC SCH ×2 (08:22→21:06)
--- NOTE | 2016-04-21 09:52 | CONS ---
Date/Time of Note Date/Time of Note DATE: 04/21/16 TIME: 09:48 Assessment/Plan Assessment/Plan Chief Complaint/Hosp Course NSTEMI: Trop up to 15 and not trended further. 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 EF is 25-30%. Plan for CABG Sunday with Dr. Reed. Acute systolic heart failure: EF 25-30%. Has mild CHF by exam. EDP was 30 on cath (combination of ischemia and hear failure). -continue ASA -treatment dose lovenox due to NSTEMI and decreased LAD flow -lipitor -coreg -lasix 20mg IV x 1 -CABG Sunday -preferably should stay in ICU Problems: Consultation Date/Type/Reason Admit Date/Time Apr 19, 2016 at 18:03 Initial Consult Date 04/20/16 Type of Consultation: Cardiology Referring Provider: ERI DIXON 24 HR Interval Summary Free Text/Dictation No o/n events. Mild SOB at times. No chest pain. Seen by Dr. Reed Exam/Review of Systems Vital Signs Vitals Vital Signs Date Time Temp Pulse Resp B/P Pulse Ox O2 Delivery O2 Flow Rate FiO2 04/21/16 08:26 95 18 141/99 98 Room Air 04/21/16 07:30 98.3 04/19/16 21:00 2.0 Intake and Output 04/20/16 04/20/16 04/21/16 15:00 23:00 07:00 Intake Total 1400 ml 760 ml Output Total 420 ml 400 ml 700 ml Balance -420 ml 1000 ml 60 ml Exam Constitutional: alert, oriented Psych: no complaints Head: atraumatic, normocephalic Neck: jvd (8cm) Respiratory: crackles/rales, No clear to auscultation Cardiovascular: regular rate and rhythm, No edema, No systolic murmur Gastrointestinal: non-tender, soft Neurological: nl mental status, nl speech Results Result Diagram: 04/21/16 0515 04/21/16 0515 Results 24 hrs Laboratory Tests Test 04/20/16 20:05 04/21/16 05:15 Activated Partial Thromboplast Time 49.9 H INR International Normalized Ratio 1.01 Prothrombin Time 13.3 Prothrombin Time Ratio 1.0 Anion Gap 14 Basophils # 0.0 Basophils % 0.4 Blood Urea Nitrogen 15 Calcium Level 8.7 Carbon Dioxide Level 29 Chloride Level 103 Creatinine 0.86 Eosinophils # 0.2 Eosinophils % 2.6 Glucose Level 102 Hematocrit 42.4 Hemoglobin 14.6 Lymphocytes # 2.2 Lymphocytes % 28.4 Mean Corpuscular Hemoglobin 30.8 Mean Corpuscular Hemoglobin Concent 34.3 Mean Corpuscular Volume 89.8 Mean Platelet Volume 8.8 Monocytes # 0.6 Monocytes % 8.2 Neutrophils # 4.7 Neutrophils % 60.4 Nucleated Red Blood Cells # 0.0 Nucleated Red Blood Cells % 0.0 Platelet Count 202 Potassium Level 3.7 Red Blood Count 4.73 Red Cell Distribution Width 13.1 Sodium Level 142 White Blood Count 7.8 # Medications Medications Current Medications Dextrose/Sodium Chloride (D5-1/2ns) 1,000 ml @ 80 mls/hr [id number] IV Last administered on 04/20/16 20:10; Admin Dose 80 MLS/HR; Start 04/19/16 at 19:27 Acetaminophen (Tylenol Tab) 650 mg Q6H PRN PO PAIN LEVEL 1-3 OR FEVER; Start at 19:30 Docusate Sodium (Colace) 100 mg Q12H PRN PO CONSTIPATION; Start 04/19/16 at 19: 30 Zolpidem Tartrate (Ambien) 5 mg QHS PRN PO SLEEP Last administered on 23:29; Admin Dose 5 MG; Start 04/19/16 at 19:30 Nitroglycerin (Nitroglycerin (Sl Tab) 0.4 Mg) 1 tab Q5M PRN SL CHEST PAIN; Start 04/19/16 at 19:30 Morphine Sulfate (morphine) 2 mg Q2H PRN IV PAIN LEVEL 4-6; Start 04/19/16 at 19:30 Morphine Sulfate (morphine) 4 mg Q2H PRN IV PAIN LEVEL 7-10; Start 04/19/16 at 19:30 Atorvastatin Calcium (Lipitor) 80 mg HS PO Last administered on 04/20/16 20:09 ; Admin Dose 80 MG; Start 04/19/16 at 21:00 Carvedilol (Coreg) 6.25 mg BID PO Last administered on 04/21/16 08:20; Admin Dose 6.25 MG; Start 04/19/16 at 21:00 Aspirin (Aspirin) 81 mg DAILY PO Last administered on 04/21/16 08:20; Admin Dose 81 MG; Start 04/21/16 at 09:00 Acetaminophen (Tylenol Tab) 650 mg Q4H PRN PO NON-CARDIAC PAIN LEVEL (1-3); Start 04/20/16 at 08:30 Morphine Sulfate (morphine) 2 mg Q2H PRN IV FOR NON CARDIAC PAIN (4-10); Start 04/20/16 at 08:30 Ondansetron HCl (Zofran Inj) 4 mg Q4H PRN IV NAUSEA AND/OR VOMITING; Start at 08:30 Enoxaparin Sodium (Lovenox) 75 mg Q12 SC Last administered on 04/21/16 08:22; Admin Dose 75 MG; Start 04/20/16 at 15:00 SANDRO BABIN Apr 21, 2016 09:52
[2016-04-21] MEDS ORDERED: FUROSEMIDE 20 MG INJ IV ONE (10:00)
[2016-04-21] MEDS ORDERED: POTASSIUM CHLORIDE 20 MEQ POWDER FOR ORAL SOLN PO ONE (10:00)
--- NOTE | 2016-04-21 14:08 | PN ---
Date/Time of Note Date/Time of Note DATE: 04/21/16 TIME: 14:02 Assessment/Plan VTE Prophylaxis VTE Prophylaxis Intervention: LMWH Lines/Catheters IV Catheter Type (from Nrs): Peripheral IV Urinary Cath still in place: No Assessment/Plan Chief Complaint/Hosp Course 1. 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, plan is for CABG on Sunday -Cont ASA, Lovenox, BB, Statin Prophylaxis-Lovenox Problems: Subjective 24 Hr Interval Summary Constitutional: no complaints Exam/Review of Systems Vital Signs Vitals Vital Signs Date Time Temp Pulse Resp B/P Pulse Ox O2 Delivery O2 Flow Rate FiO2 04/21/16 13:00 94 18 124/75 96 Room Air 04/21/16 11:00 98.4 04/19/16 21:00 2.0 Intake and Output 04/20/16 04/20/16 04/21/16 15:00 23:00 07:00 Intake Total 1400 ml 760 ml Output Total 420 ml 400 ml 700 ml Balance -420 ml 1000 ml 60 ml Exam Constitutional: alert, oriented Respiratory: clear to auscultation Cardiovascular: regular rate and rhythm Gastrointestinal: soft, No distended Musculoskeletal: nl extremities to inspection Results Result Diagram: 04/21/16 0515 04/21/16 0515 Results 24 hrs Laboratory Tests Test 04/20/16 20:05 04/21/16 05:15 Activated Partial Thromboplast Time 49.9 H INR International Normalized Ratio 1.01 Prothrombin Time 13.3 Prothrombin Time Ratio 1.0 Anion Gap 14 Basophils # 0.0 Basophils % 0.4 Blood Urea Nitrogen 15 Calcium Level 8.7 Carbon Dioxide Level 29 Chloride Level 103 Creatinine 0.86 Eosinophils # 0.2 Eosinophils % 2.6 Glucose Level 102 Hematocrit 42.4 Hemoglobin 14.6 Lymphocytes # 2.2 Lymphocytes % 28.4 Mean Corpuscular Hemoglobin 30.8 Mean Corpuscular Hemoglobin Concent 34.3 Mean Corpuscular Volume 89.8 Mean Platelet Volume 8.8 Monocytes # 0.6 Monocytes % 8.2 Neutrophils # 4.7 Neutrophils % 60.4 Nucleated Red Blood Cells # 0.0 Nucleated Red Blood Cells % 0.0 Platelet Count 202 Potassium Level 3.7 Red Blood Count 4.73 Red Cell Distribution Width 13.1 Sodium Level 142 White Blood Count 7.8 # Medications Medications Current Medications Acetaminophen (Tylenol Tab) 650 mg Q6H PRN PO PAIN LEVEL 1-3 OR FEVER; Start at 19:30 Docusate Sodium (Colace) 100 mg Q12H PRN PO CONSTIPATION; Start 04/19/16 at 19: 30 Zolpidem Tartrate (Ambien) 5 mg QHS PRN PO SLEEP Last administered on 23:29; Admin Dose 5 MG; Start 04/19/16 at 19:30 Nitroglycerin (Nitroglycerin (Sl Tab) 0.4 Mg) 1 tab Q5M PRN SL CHEST PAIN; Start 04/19/16 at 19:30 Morphine Sulfate (morphine) 2 mg Q2H PRN IV PAIN LEVEL 4-6; Start 04/19/16 at 19:30 Morphine Sulfate (morphine) 4 mg Q2H PRN IV PAIN LEVEL 7-10; Start 04/19/16 at 19:30 Atorvastatin Calcium (Lipitor) 80 mg HS PO Last administered on 04/20/16 20:09 ; Admin Dose 80 MG; Start 04/19/16 at 21:00 Carvedilol (Coreg) 6.25 mg BID PO Last administered on 04/21/16 08:20; Admin Dose 6.25 MG; Start 04/19/16 at 21:00 Aspirin (Aspirin) 81 mg DAILY PO Last administered on 04/21/16 08:20; Admin Dose 81 MG; Start 04/21/16 at 09:00 Acetaminophen (Tylenol Tab) 650 mg Q4H PRN PO NON-CARDIAC PAIN LEVEL (1-3); Start 04/20/16 at 08:30 Morphine Sulfate (morphine) 2 mg Q2H PRN IV FOR NON CARDIAC PAIN (4-10); Start 04/20/16 at 08:30 Ondansetron HCl (Zofran Inj) 4 mg Q4H PRN IV NAUSEA AND/OR VOMITING; Start at 08:30 Enoxaparin Sodium (Lovenox) 75 mg Q12 SC Last administered on 04/21/16 08:22; Admin Dose 75 MG; Start 04/20/16 at 15:00 ERI DIXON Apr 21, 2016 14:08
[2016-04-21] MEDS: ATORVASTATIN 80 MG TAB PO SCH (21:02)
[2016-04-21] MEDS: ZOLPIDEM 5 MG TAB PO PRN (21:17)
[2016-04-22] VITALS (12 sets, daily range): BP systolic 120–140; BP diastolic 73–88; PULSE 69–86; RESP 17–20
[2016-04-22] MEDS: ASPIRIN 81 MG TAB PO SCH (08:29)
[2016-04-22] MEDS ORDERED: CEFAZOLIN 2 GM/50 ML (PMX) 50 ML IVPB ONE (08:30)
--- NOTE | 2016-04-22 08:33 | PN ---
Date/Time of Note Date/Time of Note DATE: 04/22/16 TIME: 08:33 Assessment/Plan Lines/Catheters IV Catheter Type (from Nrs): Saline Lock Shine in Place (from Nrs): No Assessment/Plan Assessment/Plan carotids ok, plan for cabg Sunday Exam/Review of Systems Vital Signs Vitals Vital Signs Date Time Temp Pulse Resp B/P Pulse Ox O2 Delivery O2 Flow Rate FiO2 04/22/16 07:54 97.8 74 18 126/85 96 Room Air 04/19/16 21:00 2.0 Intake and Output 04/21/16 04/21/16 04/22/16 15:00 23:00 07:00 Intake Total 640 ml 660 ml 250 ml Output Total 250 ml 450 ml 400 ml Balance 390 ml 210 ml -150 ml Results Result Diagram: 04/21/16 0515 04/21/16 0515 PAWEL WOODS MD Apr 22, 2016 08:33
[2016-04-22] MEDS: ENOXAPARIN 100 MG/ML SYG SC SCH ×2 (08:37→22:08)
--- NOTE | 2016-04-22 17:49 | PN ---
Date/Time of Note Date/Time of Note DATE: 04/22/16 TIME: 17:48 Assessment/Plan VTE Prophylaxis VTE Prophylaxis Intervention: LMWH Lines/Catheters IV Catheter Type (from Nrs): Saline Lock Urinary Cath still in place: No Assessment/Plan Chief Complaint/Hosp Course 1. 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 Persistent cough -Phenergan with Codeine Prophylaxis-Lovenox Problems: Subjective 24 Hr Interval Summary Respiratory: cough Exam/Review of Systems Vital Signs Vitals Vital Signs Date Time Temp Pulse Resp B/P Pulse Ox O2 Delivery O2 Flow Rate FiO2 04/22/16 17:43 98.4 75 17 140/87 96 Room Air 04/19/16 21:00 2.0 Intake and Output 04/21/16 04/21/16 04/22/16 15:00 23:00 07:00 Intake Total 640 ml 660 ml 250 ml Output Total 250 ml 450 ml 400 ml Balance 390 ml 210 ml -150 ml Exam Constitutional: alert, oriented Respiratory: clear to auscultation Cardiovascular: regular rate and rhythm Gastrointestinal: soft, No distended Musculoskeletal: nl extremities to inspection Results Result Diagram: 04/21/1615 04/21/16514 Medications Medications Current Medications Acetaminophen (Tylenol Tab) 650 mg Q6H PRN PO PAIN LEVEL 1-3 OR FEVER; Start at 19:30 Docusate Sodium (Colace) 100 mg Q12H PRN PO CONSTIPATION; Start 04/19/16 at 19: 30 Zolpidem Tartrate (Ambien) 5 mg QHS PRN PO SLEEP Last administered on t 21:17; Admin Dose 5 MG; Start 04/19/16 at 19:30 Nitroglycerin (Nitroglycerin (Sl Tab) 0.4 Mg) 1 tab Q5M PRN SL CHEST PAIN; Start 04/19/16 at 19:30 Morphine Sulfate (morphine) 2 mg Q2H PRN IV PAIN LEVEL 4-6; Start 04/19/16 at 19:30 Morphine Sulfate (morphine) 4 mg Q2H PRN IV PAIN LEVEL 7-10; Start 04/19/16 at 19:30 Atorvastatin Calcium (Lipitor) 80 mg HS PO Last administered on 04/21/16 21:02 ; Admin Dose 80 MG; Start 04/19/16 at 21:00 Carvedilol (Coreg) 6.25 mg BID PO Last administered on 04/22/16 08:30; Admin Dose 6.25 MG; Start 04/19/16 at 21:00 Aspirin (Aspirin) 81 mg DAILY PO Last administered on 04/22/16 08:29; Admin Dose 81 MG; Start 04/21/16 at 09:00 Acetaminophen (Tylenol Tab) 650 mg Q4H PRN PO NON-CARDIAC PAIN LEVEL (1-3); Start 04/20/16 at 08:30 Morphine Sulfate (morphine) 2 mg Q2H PRN IV FOR NON CARDIAC PAIN (4-10); Start 04/20/16 at 08:30 Ondansetron HCl (Zofran Inj) 4 mg Q4H PRN IV NAUSEA AND/OR VOMITING; Start at 08:30 Enoxaparin Sodium 75 mg 75 mg Q12 SC Last administered on 04/22/16 08:37; Admin Dose 75 MG; Start 04/20/16 at 15:00 Cefazolin Sodium/ Dextrose (Ancef 2 Gm/50 ml (Pmx)) 50 ml @ 100 mls/hr ONCE ONCE IVPB ; Start 04/24/16 at 09:00; Stop 04/24/16 at 09:29 ERI DIXON Apr 22, 2016 17:48
--- NOTE | 2016-04-22 19:35 | CONS ---
Date/Time of Note Date/Time of Note DATE: 04/22/16 TIME: 19:31 Assessment/Plan Assessment/Plan Chief Complaint/Hosp Course NSTEMI: Trop up to 15 and not trended further. 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 EF is 25-30%. Plan for CABG Sunday with Dr. Reed. Acute systolic heart failure: had mild CHF by exam, EDP was 30 on cath ( combination of ischemia and hear failure). Status post Lasix. Ischemic cardiomyopathy: LVEF 25-30% -continue full anticoagulation with Lovenox, due to NSTEMI and decreased LAD flow -continue aspirin 81mg daily -continue atorvastatin 80mg daily -continue carvedilol 6.25mg BID -CABG on Sunday Problems: Consultation Date/Type/Reason Admit Date/Time Apr 19, 2016 at 18:03 Initial Consult Date 04/20/16 Type of Consultation: Cardiology 24 HR Interval Summary Free Text/Dictation No further chest pain. No shortness of breath. Detailed Summary Additional Comments 14 point review of systems without changes. Exam/Review of Systems Vital Signs Vitals Vital Signs Date Time Temp Pulse Resp B/P Pulse Ox O2 Delivery O2 Flow Rate FiO2 04/22/16 17:43 98.4 75 17 140/87 96 Room Air 04/19/16 21:00 2.0 Intake and Output 04/21/16 04/21/16 04/22/16 15:00 23:00 07:00 Intake Total 640 ml 660 ml 250 ml Output Total 250 ml 450 ml 400 ml Balance 390 ml 210 ml -150 ml Exam Constitutional: alert, oriented Psych: no complaints Head: atraumatic, normocephalic Neck: jvd (8cm) Respiratory: crackles/rales, No clear to auscultation Cardiovascular: regular rate and rhythm, No edema, No systolic murmur Gastrointestinal: non-tender, soft Neurological: nl mental status, nl speech Results Result Diagram: 04/21/1651404/21/16514 Medications Medications Current Medications Acetaminophen (Tylenol Tab) 650 mg Q6H PRN PO PAIN LEVEL 1-3 OR FEVER; Start at 19:30 Docusate Sodium (Colace) 100 mg Q12H PRN PO CONSTIPATION; Start 04/19/16 at 19: 30 Zolpidem Tartrate (Ambien) 5 mg QHS PRN PO SLEEP Last administered on 21:17; Admin Dose 5 MG; Start 04/19/16 at 19:30 Nitroglycerin (Nitroglycerin (Sl Tab) 0.4 Mg) 1 tab Q5M PRN SL CHEST PAIN; Start 04/19/16 at 19:30 Morphine Sulfate (morphine) 2 mg Q2H PRN IV PAIN LEVEL 4-6; Start 04/19/16 at 19:30 Morphine Sulfate (morphine) 4 mg Q2H PRN IV PAIN LEVEL 7-10; Start 04/19/16 at 19:30 Atorvastatin Calcium (Lipitor) 80 mg HS PO Last administered on 04/21/16 21:02 ; Admin Dose 80 MG; Start 04/19/16 at 21:00 Carvedilol (Coreg) 6.25 mg BID PO Last administered on 04/22/16 08:30; Admin Dose 6.25 MG; Start 04/19/16 at 21:00 Aspirin (Aspirin) 81 mg DAILY PO Last administered on 04/22/16 08:29; Admin Dose 81 MG; Start 04/21/16 at 09:00 Acetaminophen (Tylenol Tab) 650 mg Q4H PRN PO NON-CARDIAC PAIN LEVEL (1-3); Start 04/20/16 at 08:30 Morphine Sulfate (morphine) 2 mg Q2H PRN IV FOR NON CARDIAC PAIN (4-10); Start 04/20/16 at 08:30 Ondansetron HCl (Zofran Inj) 4 mg Q4H PRN IV NAUSEA AND/OR VOMITING; Start at 08:30 Enoxaparin Sodium 75 mg 75 mg Q12 SC Last administered on 04/22/16 08:37; Admin Dose 75 MG; Start 04/20/16 at 15:00 Cefazolin Sodium/ Dextrose (Ancef 2 Gm/50 ml (Pmx)) 50 ml @ 100 mls/hr ONCE ONCE IVPB ; Start 04/24/16 at 09:00; Stop 04/24/16 at 09:29 Promethazine HCl/ Codeine (Phenergan/ Codeine) 5 ml Q4H PRN PO COUGH; Start at 18:00 ZACK RICHARD MD Apr 22, 2016 19:35
[2016-04-22] MEDS: ATORVASTATIN 80 MG TAB PO SCH (21:50)
[2016-04-22] MEDS: PROMETHAZINE/CODEINE 5ML CUP PO PRN (21:55)
[2016-04-23] VITALS (12 sets, daily range): BP systolic 110–139; BP diastolic 66–87; PULSE 64–78; RESP 17–21
[2016-04-23] MEDS: PROMETHAZINE/CODEINE 5ML CUP PO PRN ×2 (03:17→23:42)
[2016-04-23] MEDS: ASPIRIN 81 MG TAB PO SCH (08:16)
[2016-04-23] MEDS: ENOXAPARIN 100 MG/ML SYG SC SCH ×2 (08:26→21:56)
--- NOTE | 2016-04-23 14:43 | PN ---
Date/Time of Note Date/Time of Note DATE: 04/23/16 TIME: 14:41 Assessment/Plan VTE Prophylaxis VTE Prophylaxis Intervention: LMWH Lines/Catheters IV Catheter Type (from Nrs): Saline Lock Urinary Cath still in place: No Assessment/Plan Chief Complaint/Hosp Course 1. 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 Persistent cough-improved with Rx -Cont Phenergan with Codeine PRN 3. Prediabetes- A1C at 6.0 -Lifestyle changes to be advised prior to DC Prophylaxis-Lovenox Problems: Subjective 24 Hr Interval Summary Constitutional: no complaints Exam/Review of Systems Vital Signs Vitals Vital Signs Date Time Temp Pulse Resp B/P Pulse Ox O2 Delivery O2 Flow Rate FiO2 04/23/16 12:11 78 04/23/16 11:51 98.0 17 110/66 95 04/23/16 03:18 Room Air 04/19/16 21:00 2.0 Intake and Output 04/22/16 04/22/16 04/23/16 15:00 23:00 07:00 Intake Total 410 ml Output Total 825 ml Balance -415 ml Exam Constitutional: alert, oriented Respiratory: clear to auscultation Cardiovascular: regular rate and rhythm Gastrointestinal: soft, No distended Musculoskeletal: nl extremities to inspection Results Result Diagram: 04/21/1615 04/21/16514 Medications Medications Current Medications Acetaminophen (Tylenol Tab) 650 mg Q6H PRN PO PAIN LEVEL 1-3 OR FEVER; Start at 19:30 Docusate Sodium (Colace) 100 mg Q12H PRN PO CONSTIPATION; Start 04/19/16 at 19: 30 Zolpidem Tartrate (Ambien) 5 mg QHS PRN PO SLEEP Last administered on t 21:17; Admin Dose 5 MG; Start 04/19/16 at 19:30 Nitroglycerin (Nitroglycerin (Sl Tab) 0.4 Mg) 1 tab Q5M PRN SL CHEST PAIN; Start 04/19/16 at 19:30 Morphine Sulfate (morphine) 2 mg Q2H PRN IV PAIN LEVEL 4-6; Start 04/19/16 at 19:30 Morphine Sulfate (morphine) 4 mg Q2H PRN IV PAIN LEVEL 7-10; Start 04/19/16 at 19:30 Atorvastatin Calcium (Lipitor) 80 mg HS PO Last administered on 04/22/16 21:50 ; Admin Dose 80 MG; Start 04/19/16 at 21:00 Carvedilol (Coreg) 6.25 mg BID PO Last administered on 04/23/16 08:17; Admin Dose 6.25 MG; Start 04/19/16 at 21:00 Aspirin (Aspirin) 81 mg DAILY PO Last administered on 04/23/16 08:16; Admin Dose 81 MG; Start 04/21/16 at 09:00 Acetaminophen (Tylenol Tab) 650 mg Q4H PRN PO NON-CARDIAC PAIN LEVEL (1-3); Start 04/20/16 at 08:30 Morphine Sulfate (morphine) 2 mg Q2H PRN IV FOR NON CARDIAC PAIN (4-10); Start 04/20/16 at 08:30 Ondansetron HCl (Zofran Inj) 4 mg Q4H PRN IV NAUSEA AND/OR VOMITING; Start at 08:30 Enoxaparin Sodium 75 mg 75 mg Q12 SC Last administered on 04/23/16 08:26; Admin Dose 75 MG; Start 04/20/16 at 15:00 Cefazolin Sodium/ Dextrose (Ancef 2 Gm/50 ml (Pmx)) 50 ml @ 100 mls/hr ONCE ONCE IVPB ; Start 04/24/16 at 09:00; Stop 04/24/16 at 09:29 Promethazine HCl/ Codeine 5 ml 5 ml Q4H PRN PO COUGH Last administered on 03:17; Admin Dose 5 ML; Start 04/22/16 at 18:00 Insulin Human Regular/Sodium Chloride (Humulin R/NS) 100 ml @ 0 mls/hr Q0M IVPB ; Start 04/24/16 at 07:00; Stop 04/24/16 at 11:00 ERI DIXON Apr 23, 2016 14:43
[2016-04-23] MEDS: ATORVASTATIN 80 MG TAB PO SCH (21:50)
[2016-04-24] VITALS (48 sets, daily range): BP systolic 82–131; BP diastolic 51–83; PULSE 73–117; RESP 7–75; TEMP 98.5–101.4
[2016-04-24 06:46] LABS: INR 0.99; PROTIME 13.1 Sec (12.2-14.2)
[2016-04-24 06:47] LABS: PARTIAL THROMBOPLASTIN TIME 46.9 Sec (25.0-35.0)
[2016-04-24] MEDS ORDERED: VANCOMYCIN 1 GM INJ ONE (06:47)
[2016-04-24] MEDS ORDERED: PAPAVERINE 60 MG INJ ONE (06:47)
[2016-04-24] MEDS ORDERED: HEPARIN 1000 UNITS/ML 10 ML INJ ONE ×4 (06:47→10:19)
[2016-04-24] MEDS ORDERED: THROMBIN 5000 UNIT VIAL ONE (06:48)
[2016-04-24] MEDS ORDERED: GELATIN SIZE 100 SPONGE ONE (06:48)
[2016-04-24 06:53] LABS: BASOPHILS % 0.6 % (0.0-2.0); EOSINOPHILS # 0.2 10^3/ul (0.0-0.5); EOSINOPHILS % 3.3 % (0.0-7.0); HEMATOCRIT 47.1 % (42.0-52.0); HEMOGLOBIN 16.2 g/dl (14.0-18.0); LYMPHOCYTES # 1.7 10^3/ul (0.8-2.9); LYMPHOCYTES % 25.6 % (15.0-51.0); MEAN CORPUSCULAR HEMOGLOBIN 30.6 pg (29.0-33.0); MEAN CORPUSCULAR HGB CONC 34.3 g/dl (32.0-37.0); MEAN CORPUSCULAR VOLUME 89.3 fl (82.0-101.0); MEAN PLATELET VOLUME 8.6 fl (7.4-10.4); MONOCYTE # 0.8 10^3/ul (0.3-0.9); MONOCYTES % 11.5 % (0.0-11.0); NEUTROPHIL # 3.9 10^3/ul (1.6-7.5); PLATELET COUNT 231 10^3/UL (140-440); RED BLOOD COUNT 5.28 10^6/ul (4.70-6.10); RED CELL DISTRIBUTION WIDTH 12.8 % (11.5-14.5); UNCORRECTED WBC 6.6 10^3/ul (4.8-10.8); WHITE BLOOD COUNT 6.6 10^3/ul (4.8-10.8)
[2016-04-24 06:57] LABS: CONDITION 1
[2016-04-24 06:59] LABS: POTASSIUM 3.8 mmol/L (3.5-5.1)
[2016-04-24] MEDS ORDERED: ASPIRIN 600 MG SUPP PR SCH (07:00)
[2016-04-24] MEDS ORDERED: INSULIN REGULAR, HUMAN 100 UNIT in SOD CHLORIDE 0.9% 99 ML IVPB SCH ×2 (07:00)
[2016-04-24] MEDS ORDERED: DOPamine-D5W 1.6 MG/ML 250 ML ONE (07:00)
[2016-04-24] MEDS ORDERED: NORepinephrine 8MG/250 ML (PMX 250 ML IV SCH ×2 (07:00→15:30)
[2016-04-24] MEDS ORDERED: NITROGLYCERIN 50 MG/D5W 250 ML BTL ONE (07:00)
[2016-04-24] MEDS ORDERED: PHENYLephrine 20MG IN 250 ML 250 ML IV SCH (07:00)
[2016-04-24] MEDS ORDERED: MILRINONE LACTATE 2 MG in SOD CHLORIDE 0.9% 50 ML IV SCH (07:00)
[2016-04-24] MEDS ORDERED: HEPARIN (10000 UNITS/ML) 10,000 UNIT, MILRINONE LACTATE 10 MG in SOD CHLORIDE 0.9% 1,00... SC SCH (07:00)
[2016-04-24 07:01] LABS: CREATININE 0.85 mg/dl (0.61-1.24)
[2016-04-24 07:02] LABS: CALCIUM 9.6 mg/dl (8.4-10.2); MAGNESIUM 1.9 mg/dl (1.7-2.5); PHOSPHORUS 3.7 mg/dl (2.5-4.9)
--- NOTE | 2016-04-24 07:20 | HPN ---
Date/Time of Note Date/Time of Note DATE: 04/24/16 TIME: 07:20 Interval H&P Admission Note Pt. seen H&P reviewed: No system changes PAWEL WOODS MD Apr 24, 2016 07:20
[2016-04-24] MEDS ORDERED: GLUCAGON 1 MG INJ IM PRN (07:30)
[2016-04-24] MEDS ORDERED: GLUCOSE GEL 15 GRAM TUBE PO PRN ×2 (07:30)
[2016-04-24] MEDS ORDERED: GLUCOSE GEL 15 GRAM TUBE BUCCAL PRN (07:30)
[2016-04-24] MEDS ORDERED: DEXTROSE 50% 50 ML SYRINGE IV PRN ×2 (07:30)
[2016-04-24] MEDS ORDERED: MIDAZOLAM 5 ML ONE ×2 (07:33→09:58)
[2016-04-24] MEDS ORDERED: PHENYLephrine (100 MCG/ML) 5ML SYG ONE ×3 (07:36→10:29)
[2016-04-24] MEDS ORDERED: NA BICARBONATE 8.4% 50 ML SYG ONE (07:47)
[2016-04-24] MEDS ORDERED: CA CHLORIDE 10% 10 ML SYRINGE ONE (07:47)
[2016-04-24] MEDS ORDERED: MAGNESIUM SULFATE (MG) 50% 10 ML INJ ONE (07:47)
[2016-04-24] MEDS ORDERED: POTASSIUM CHLORIDE 40 MEQ INJ ONE (07:47)
[2016-04-24] MEDS ORDERED: ALBUMIN HUMAN 25% 200 ML ONE (07:47)
[2016-04-24] MEDS ORDERED: LIDOCAINE 100 MG SYRINGE ONE ×2 (07:47→12:50)
[2016-04-24] MEDS ORDERED: PHENYLephrine 10 MG INJ ONE (07:47)
[2016-04-24] MEDS ORDERED: MANNITOL 25% 150 ML ONE (07:47)
[2016-04-24] MEDS ORDERED: AMINOCAPROIC ACID 5 GM INJ ONE ×4 (07:47→11:24)
[2016-04-24] MEDS: ASPIRIN 81 MG TAB PO SCH (09:00)
[2016-04-24] MEDS ORDERED: CEFAZOLIN 2 GM/50 ML (PMX) 50 ML IVPB ONE (09:00)
[2016-04-24] MEDS: ENOXAPARIN 100 MG/ML SYG SC SCH ×2 (09:00→21:00)
[2016-04-24] MEDS ORDERED: FUROSEMIDE 20 MG INJ ONE ×2 (10:03→12:06)
[2016-04-24] MEDS ORDERED: CEFAZOLIN 1 GM INJ ONE (11:24)
[2016-04-24] MEDS ORDERED: PROTAMINE 250 MG INJ ONE (11:27)
[2016-04-24] MEDS ORDERED: ROCURONIUM 50 MG INJ ONE (12:50)
[2016-04-24] MEDS ORDERED: ETOMIDATE 20 MG INJ ONE (12:50)
[2016-04-24] MEDS ORDERED: HYDROmorphONE 1 MG/ML SYG IV PRN (13:00)
[2016-04-24] MEDS ORDERED: DOPamine-D5W 1.6 MG/ML 250 ML IV SCH (13:00)
[2016-04-24] MEDS ORDERED: ONDANSETRON 4 MG INJ IV PRN (13:00)
[2016-04-24] MEDS ORDERED: NITROGLYCERIN 50 MG/D5W (PMX) 250 ML IV SCH (13:00)
[2016-04-24] MEDS ORDERED: MAGNESIUM SULFATE 1 GM/D5W 100 ML IVPB SCH (13:00)
[2016-04-24] MEDS: ACCUCHECK XX SCH ×11 (13:30→23:30)
--- NOTE | 2016-04-24 13:35 | RADRPT ---
PROCEDURE: XR Chest. CLINICAL INDICATION: Shortness of breath. Post CABG. TECHNIQUE: Single frontal view. COMPARISON: 04/19/2016. FINDINGS: The endotracheal tube, right internal jugular vein [place]-Shanika catheter, and left chest tube are in sa tisfactory position. There is mild atelectasis at the lung bases. The lungs are otherwise clear. The heart is mildly enlarged. There is calcification in the aorta consistent with atherosclerosis. There are sternal wires. There is no other abnormal radiopaque foreign body. There is no pleural effusion. There is no pneumothorax. IMPRESSION: 1. Satisfactory postoperative appearance of the chest. RPTAT: QQ .Deep Blackwood MD, MD Date Time Electronically viewed and signed by .Deep Blackwood MD, MD on 04/24/2016 13:35 .R/
[2016-04-24 14:04] LABS: AADO2 Arterial 309.2 mmHg (7.0-24.0); Arterial Base Excess -4.9 mmol/L (-3.0-3); Arterial COHb 0.1 % (0.0-3.0); Arterial Fraction of Oxyhgb 92.5 % (93.0-99.0); Arterial HCO3 20.8 mmol/L (22.0-26.0); Arterial MetHb 0.5 % (0.0-1.5); Arterial Total Hemglobin 15.2 g/dl (12.0-18.0); MODE VENT - AC
[2016-04-24] MEDS: CEFAZOLIN 1 GM/50 ML (PMX) 50 ML IVPB SCH ×2 (14:14→21:43)
[2016-04-24] MEDS ORDERED: EPINEPHrine 4 MG in DEXTROSE 5% 246 ML IV SCH (14:30)
[2016-04-24 14:34] LABS: BASOPHIL # 0.1 10^3/ul (0.0-0.1); BASOPHILS % 0.3 % (0.0-2.0); EOSINOPHILS # 0.2 10^3/ul (0.0-0.5); EOSINOPHILS % 1.1 % (0.0-7.0); HEMATOCRIT 41.5 % (42.0-52.0); HEMOGLOBIN 14.2 g/dl (14.0-18.0); LYMPHOCYTES # 2.6 10^3/ul (0.8-2.9); LYMPHOCYTES % 12.9 % (15.0-51.0); MEAN CORPUSCULAR HEMOGLOBIN 30.4 pg (29.0-33.0); MEAN CORPUSCULAR HGB CONC 34.2 g/dl (32.0-37.0); MEAN CORPUSCULAR VOLUME 88.9 fl (82.0-101.0); MEAN PLATELET VOLUME 8.8 fl (7.4-10.4); MONOCYTE # 1.2 10^3/ul (0.3-0.9); MONOCYTES % 5.9 % (0.0-11.0); NEUTROPHIL # 15.9 10^3/ul (1.6-7.5); NEUTROPHILS % 79.8 % (39.0-77.0); PLATELET COUNT 168 10^3/UL (140-440); RED BLOOD COUNT 4.66 10^6/ul (4.70-6.10); UNCORRECTED WBC 19.9 10^3/ul (4.8-10.8); WHITE BLOOD COUNT 19.9 10^3/ul (4.8-10.8)
[2016-04-24 14:40] LABS: CREATININE 1.16 mg/dl (0.61-1.24)
[2016-04-24 14:41] LABS: CALCIUM 9.2 mg/dl (8.4-10.2); CONDITION 1
[2016-04-24] MEDS ORDERED: ALBUMIN HUMAN 5% 500 ML ONE (14:44)
[2016-04-24 14:48] LABS: INR 1.31; PROTIME 16.4 Sec (12.2-14.2); PT RATIO 1.3
[2016-04-24] MEDS ORDERED: SOD CHLORIDE 0.9% 1,000 ML IV ONE (15:00)
[2016-04-24] MEDS: ALBUMIN HUMAN 5% 250 ML IV SCH ×2 (15:11→15:31)
[2016-04-24] MEDS: POTASSIUM CHLORIDE 40 MEQ, CALCIUM CHLORIDE 10% 1 GM in DEXTROSE 5%-0.225% NACL 1,000 ML IV SCH (15:11)
[2016-04-24] MEDS ORDERED: MILRINONE LACTATE 100 ML IV SCH (15:30)
[2016-04-24] MEDS ORDERED: MAGNESIUM SULFATE 1 GM/D5W 100 ML IVPB PRN (15:30)
--- NOTE | 2016-04-24 15:49 | OPR ---
DATE OF OPERATION: 04/24/2016 PREOPERATIVE DIAGNOSIS: ST-segment elevation myocardial infarction, 3-vessel coronary artery disease. POSTOPERATIVE DIAGNOSIS: ST-segment elevation myocardial infarction, 3-vessel coronary artery disease. PROCEDURE PERFORMED: Coronary artery bypass graft x4, left internal mammary artery to the left anterior descending and saphenous vein graft to proximal posterior descending artery and saphenous vein graft to diagonal artery 1 sequenced to obtuse marginal artery, epiaortic scanning of the ascending aorta, endoscopic vein harvesting from the right lower extremity. SURGEON: PAWEL WOODS MD PRINTING MACHINE MECHANIC: Brad Tillman SECOND MACHINE INKER: CHELSEY MORRIS. ANESTHESIOLOGIST: Dr. Hamilton TYPE OF ANESTHESIA: General endotracheal. COMPLICATIONS: None. FINDINGS: LV function preoperatively on TE was about 30%. After revascularization was 45%. Flow in the GARNER to LAD was about 35 mL per minute. The flow in the vein graft to the right coronary artery was 35 mL per minute and into the sequenced OM diagonal vein graft is about 32 mL per minute. INDICATIONS: The patient is a 66-year-old male who was admitted with NSTEMI. He underwent coronary angiogram which showed severe 3-vessel coronary artery disease. He was referred for urgent CABG. Benefits, risks, alternatives were explained and understood and consented. DESCRIPTION OF PROCEDURE: Patient was brought to the operating room. He was placed in supine position. He was induced and underwent general endotracheal intubation without complications. Lines were placed. Antibiotics were given. He was prepped and draped in usual fashion. Median sternotomy was made. Simultaneous endoscopic vein harvesting from the right lower extremity and also using skipped incisions in the left lower extremity to harvest the saphenous vein in the left lower extremity. Once the GARNER was taken down using clips and cautery, we created a pericardial well. Heparin was given. The ascending aorta was scanned and there were no atheromatous plaques. Pursestring was placed in the ascending aorta followed by the right atrium. The ascending aorta was cannulated followed by a 2-stage venous cannula in the right atrium and placed in the ascending aortic vent. Once all lines were in place, we commenced cardiopulmonary bypass. We placed the crossclamp and arrested the heart using antegrade cardioplegia and topical ice and cooled the patient down 35 degrees Celsius. Once the heart was arrested, we identified the PDA just beyond the distal right coronary artery. We made an arteriotomy extended the Live scissors past the postop vein graft using 7-0 Prolene in running fashion in an end-to-side manner. We then identified the obtuse marginal artery. We made an arteriotomy and extended with Live scissors, status post vein graft using 7-0 Prolene in running fashion in an end-to-side manner. Then, we identified the high diagonal artery. We made a venotomy and arteriotomy and anastomosed our vein graft using running 7-0 Prolene in running fashion in side- to-side manner. We then identified the mid LAD and made an arteriotomy and extended with Live scissors and anastomosed GARNER using 7-0 Prolene in running fashion in an end-to-side manner. At this point, we gave warm blood. We removed crossclamp, cardioverted to normal sinus rhythm, placed a ventricular pacing wire. We placed a partial clamp on the ascending aorta, made 2 aortotomies anastomosed to the right vein graft to the proximal aortotomy using 5-0 Prolene in running fashion in an end-to-side manner. The same was done for the other vein grafts. A partial clamp was removed. Vein grafts were deaired. Distal hemostasis was achieved. We began to ventilate the patient and then wean him off cardiopulmonary bypass. Once he was off bypass, we placed a left pleural tube in anterior mediastinal tube. We gave protamine. We de-lined the patient. We then achieved hemostasis and closed the chest using interrupted cable followed by closure of the fascia using 0 Vicryl followed by closure of the skin using 4-0 Monocryl in subcuticular fashion. Lower extremity incisions were closed using 3-0 Vicryl for the deep layer and 4-0 Monocryl for the skin. Dressings were applied. Patient was taken to the ICU in critical but stable condition. Dictated By: PAWEL JOE/CANDI Conf#: [id number] DID#: [id number] CC: SANDRO BABIN MD;*EndCC* MTDD
[2016-04-24] MEDS: HYDROmorphONE 1 MG/ML SYG IV PRN ×2 (16:39→19:51)
--- NOTE | 2016-04-24 16:44 | CONS ---
Date/Time of Note Date/Time of Note DATE: 04/24/16 TIME: 16:39 Assessment/Plan Assessment/Plan Chief Complaint/Hosp Course Coronary artery disease: status post CABG 04/24/2016 (GARNER-LAD, SVG-PDA, SVG-D1- OM) Status post NSTEMI Ischemic cardiomyopathy: LVEF 25-30% Hypotension -gentle fluid hydration, wean Levophed as tolerated -continue aspirin 325mg daily -continue atorvastatin 80mg daily -restart on carvedilol and ACEI/ARB for systolic heart failure when hemodynamically stable -post-operative care per CT surgery Problems: Consultation Date/Type/Reason Admit Date/Time Apr 19, 2016 at 18:03 Initial Consult Date 04/20/16 Type of Consultation: Cardiology 24 HR Interval Summary Free Text/Dictation Status post CABG today. On low dose Levophed. Awake and on spontaneous breathing trial. Detailed Summary Additional Comments Unable to obtain review of systems, patient is intubated. Exam/Review of Systems Vital Signs Vitals Vital Signs Date Time Temp Pulse Resp B/P Pulse Ox O2 Delivery O2 Flow Rate FiO2 04/24/16 16:26 104 14 100 30 04/24/16 16:15 99.3 93/59 04/23/16 03:18 Room Air Intake and Output 04/23/16 04/23/16 04/24/16 15:00 23:00 07:00 Intake Total 850 ml 550 ml Output Total 205 ml Balance 645 ml 550 ml Exam Constitutional: alert, oriented Psych: no complaints Head: atraumatic, normocephalic Neck: no jvd Respiratory: crackles/rales, No clear to auscultation Cardiovascular: regular rate and rhythm, No edema, No systolic murmur Gastrointestinal: non-tender, soft Neurological: nl mental status, nl speech Results Result Diagram: 04/24/16 1349 04/24/16 1349 Results 24 hrs Laboratory Tests Test 04/24/16 06:05 04/24/16 12:59 04/24/16 13:14 04/24/16 13:49 Activated Partial Thromboplast Time 46.9 H 38.0 H Anion Gap 18 H 19 H Basophils # 0.0 0.1 Basophils % 0.6 0.3 Blood Urea Nitrogen 18 18 Calcium Level 9.6 9.2 Carbon Dioxide Level 26 22 Chloride Level 103 105 Creatinine 0.85 1.16 Eosinophils # 0.2 0.2 Eosinophils % 3.3 1.1 Glucose Level 98 129 Hematocrit 47.1 41.5 L Hemoglobin 16.2 14.2 INR International Normalized Ratio 0.99 1.31 Lymphocytes # 1.7 2.6 Lymphocytes % 25.6 12.9 L Magnesium Level 1.9 3.0 H Mean Corpuscular Hemoglobin 30.6 30.4 Mean Corpuscular Hemoglobin Concent 34.3 34.2 Mean Corpuscular Volume 89.3 88.9 Mean Platelet Volume 8.6 8.8 Monocytes # 0.8 1.2 H Monocytes % 11.5 H 5.9 Neutrophils # 3.9 15.9 H Neutrophils % 59.0 79.8 H Nucleated Red Blood Cells # 0.0 0.0 Nucleated Red Blood Cells % 0.0 0.0 Phosphorus Level 3.7 Platelet Count 231 168 # Potassium Level 3.8 4.0 Prothrombin Time 13.1 16.4 #H Prothrombin Time Ratio 1.0 1.3 Red Blood Count 5.28 4.66 L Red Cell Distribution Width 12.8 13.0 Sodium Level 143 142 White Blood Count 6.6 19.9 #H Arterial Blood HCO3 20.8 L Arterial Blood Base Excess -4.9 L Arterial Blood Oxygen Saturation 93.1 L Jesse Test N/A Arterial Blood Gas Puncture Site A-Line Arterial Blood Carboxyhemoglobin 0.1 Arterial Blood Date Drawn 04/24/2016 1:50:37 PM Arterial Blood Methemoglobin 0.5 Arterial Blood pCO2 (Temp correct) 41.3 Arterial Blood pH (Temp corrected) 7.321 L Arterial Blood pO2 (Temp corrected) 73.2 L Blood Gas A-a O2 Differential 309.2 H Blood Gas Actual Respiration Rate 20 Blood Gas Low PEEP Setting 5.0 Blood Gas Modality VENT - AC Blood Gas Notified Time 04/24/2016 1:50:30 PM Blood Gas Notified Whom M.D. Blood Gas Respiration Rate 14.0 Blood Gas Specimen Source Blood arterial Blood Gas Temperature 37.0 Blood Gas Tidal Volume 500.0 FiO2 60.0 Oxyhemoglobin Percent 92.5 L Total Hemoglobin 15.2 Bedside Glucose 126 Medications Medications Current Medications Docusate Sodium (Colace) 100 mg Q12H PRN PO CONSTIPATION; Start 04/19/16 at 19: 30 Zolpidem Tartrate (Ambien) 5 mg QHS PRN PO SLEEP Last administered on 21:17; Admin Dose 5 MG; Start 04/19/16 at 19:30 Nitroglycerin (Nitroglycerin (Sl Tab) 0.4 Mg) 1 tab Q5M PRN SL CHEST PAIN; Start 04/19/16 at 19:30 Morphine Sulfate (morphine) 4 mg Q2H PRN IV PAIN LEVEL 7-10; Start 04/19/16 at 19:30 Atorvastatin Calcium (Lipitor) 80 mg HS PO Last administered on 04/23/16 21:50 ; Admin Dose 80 MG; Start 04/19/16 at 21:00 Carvedilol (Coreg) 6.25 mg BID PO Last administered on 04/23/16 21:51; Admin Dose 6.25 MG; Start 04/19/16 at 21:00 Acetaminophen (Tylenol Tab) 650 mg Q4H PRN PO NON-CARDIAC PAIN LEVEL (1-3); Start 04/20/16 at 08:30 Morphine Sulfate (morphine) 2 mg Q2H PRN IV FOR NON CARDIAC PAIN (4-10); Start 04/20/16 at 08:30 Enoxaparin Sodium (Lovenox) 75 mg Q12 SC Last administered on 04/23/16 21:56; Admin Dose 75 MG; Start 04/20/16 at 15:00 Promethazine HCl/ Codeine (Phenergan/ Codeine) 5 ml Q4H PRN PO COUGH Last administered on 04/23/16 23:42; Admin Dose 5 ML; Start 04/22/16 at 18:00 Miscellaneous Information 1 ea NOTE XX ; Start 04/24/16 at 07:30 Glucose (Glutose) 15 gm Q15M PRN PO DECREASED GLUCOSE; Start 04/24/16 at 07:30 Glucose (Glutose) 22.5 gm Q15M PRN PO DECREASED GLUCOSE; Start 04/24/16 at 07: 30 Dextrose (D50w Syringe) 25 ml Q15M PRN IV DECREASED GLUCOSE; Start 04/24/16 at 07:30 Dextrose (D50w Syringe) 50 ml Q15M PRN IV DECREASED GLUCOSE; Start 04/24/16 at 07:30 Glucagon (Glucagen) 1 mg Q15M PRN IM DECREASED GLUCOSE; Start 04/24/16 at 07:30 Glucose 15 gm 15 gm Q15M PRN BUCCAL DECREASED GLUCOSE; Start 04/24/16 at 07:30 Potassium Chloride 40 meq/ Calcium Chloride 1 gm/Dextrose/ Sodium Chloride 1, 030 ml @ 60 mls/hr [id number] IV Last administered on 04/24/16 15:11; Admin Dose 60 MLS/HR; Start 04/24/16 at 15:00 Cefazolin Sodium (Ancef 1 Gm/50 ml (Pmx)) 50 ml @ 100 mls/hr Q8H IVPB Last administered on 04/24/16 14:14; Admin Dose 100 MLS/HR; Start 04/24/16 at 14:00 ; Stop 04/25/16 at 06:29 Hydromorphone HCl (Dilaudid) 0.2 mg Q15M PRN IV PAIN LEVEL 1-5; Start 04/24/16 at 13:00 Hydromorphone HCl (Dilaudid) 0.4 mg Q15M PRN IV PAIN LEVEL 6-10; Start at 13:00 Oxycodone/ Acetaminophen (Percocet (5/ 325)) 1 tab Q3H PRN PO PAIN LEVEL 1-5; Start 04/24/16 at 13:00 Oxycodone/ Acetaminophen (Percocet (5/ 325)) 2 tab Q3H PRN PO PAIN LEVEL 6-10; Start 04/24/16 at 13:00 Ondansetron HCl (Zofran Inj) 4 mg Q6H PRN IV NAUSEA AND/OR VOMITING; Start at 13:00 Famotidine (Pepcid Iv) 20 mg BID@08,20 IV ; Start 04/24/16 at 20:00 Aspirin (Aspirin) 325 mg DAILY PO ; Start 04/25/16 at 09:00 Insulin Aspart (Novolog Insulin Pen) NOVOLOG *MILD* ALGORI... Q4 SC ; Start at 17:00 Diagnostic Test (Pha) 1 ea 1 ea Q1H XX ; Start 04/24/16 at 13:30 Albumin Human 250 ml @ 250 mls/hr Q1H IV Last administered on 04/24/16 15:31 ; Admin Dose 250 MLS/HR; Start 04/24/16 at 15:00; Stop 04/24/16 at 16:59 Magnesium Sulfate/ Dextrose 100 ml @ 100 mls/hr Q2H PRN IVPB FOR MAG LEVEL <2 ; Start 04/24/16 at 15:30 Milrinone Lactate 100 ml @ 8.325 mls/ hr TITRATE IV ; Start 04/24/16 at 15:30 Norepinephrine (Levophed) 250 ml @ 1.875 mls/ hr TITRATE IV Last administered on 04/24/16t 15:46; Admin Dose 3.75 MLS/HR; Start 04/24/16 at 15:30 ZACK RICHARD MD Apr 24, 2016 16:44
[2016-04-24] MEDS: INSULIN ASPART [NOVOLOG] 3 ML PEN SC SCH ×2 (17:00→21:00)
[2016-04-24 17:04] LABS: AADO2 Arterial 73.3 mmHg (7.0-24.0); Arterial Base Excess -2.8 mmol/L (-3.0-3); Arterial COHb 0.2 % (0.0-3.0); Arterial Fraction of Oxyhgb 95.6 % (93.0-99.0); Arterial HCO3 22.7 mmol/L (22.0-26.0); Arterial MetHb 0.5 % (0.0-1.5); Blood Gas PS 10; MODE VENT - CPAP
[2016-04-24] MEDS ORDERED: MAGNESIUM SULFATE 2 GM/50 ML 50 ML IVPB PRN (17:30)
[2016-04-24] MEDS: POTASSIUM CHLORIDE 50 ML IVPB PRN ×2 (17:31→18:38)
[2016-04-24 18:27] LABS: MAGNESIUM 2.7 mg/dl (1.7-2.5)
[2016-04-24] MEDS ORDERED: POTASSIUM CHLORIDE 20 MEQ in SOD CHLORIDE 0.9% 100 ML IVPB ONE (18:30)
--- NOTE | 2016-04-24 19:13 | PN ---
DATE: 04/24/2016 TIME OF EVALUATION: 1730 SUBJECTIVE DATA: The patient is status post CABG x4 today. The patient is status post extubation. Complains of chest pain. OBJECTIVE DATA: VITAL SIGNS: Temperature 99.7, pulse rate 109, respiratory rate 15, blood pressure 103/50, oxygen saturation 99% on low flow O2. GENERAL: This is a well-built, well-nourished male lying in bed in mild distress secondary to underlying pain. HEENT: Head normocephalic and atraumatic. Eyes: Anicteric sclerae. Conjunctivae clear. ENT: Nasal septum is midline. Oral mucosa is dry. NECK: Supple. Right IJ [place]-Shanika catheter in place. No JVD noticed. RESPIRATORY: Bilaterally diminished breath sounds. No adventitious breath sounds. No use of accessory muscles of respiration. Chest tubes to PleurVac. CARDIAC: Regular rate and rhythm. Dressing over sternotomy clean, dry, and intact. Cardiac pacer wires in place. ABDOMEN: Soft, nontender, and nondistended. Bowel sounds hypoactive in all 4 quadrants. GENITOURINARY: The patient has a Shine catheter in place. EXTREMITIES: Left lower extremity Dave wrap over the vein grafting site. Right lower extremity, no edema. Peripheral pulses are palpable. Left radial A-line. NEUROLOGIC: The patient is awake, alert, and oriented. Cranial nerves are grossly intact. LABORATORY AND DIAGNOSTIC DATA: WBC 19.9, hemoglobin 14.2, hematocrit 41.5, platelet count 160. Sodium 142, potassium 4.0, chloride 105, carbon dioxide 22 , anion gap 19, BUN 18, creatinine 1.16, glucose 129, calcium 9.2, magnesium 3.0. ASSESSMENT AND PLAN: 1. Non-ST elevation myocardial infarction with left heart catheterization revealing 3-vessel coronary artery disease. Status post coronary artery bypass grafting x4 on 04/24/2016. Continue postoperative management as per cardiac surgery. 2. Cardiomyopathy with ejection fraction of 25% to 30%. Most probably ischemic cardiomyopathy. Continue to optimize cardiac medications. 3. Dyslipidemia. Continue statins. 4. Pre-diabetes. Hemoglobin A1c 6.0. Continue optimal blood sugar control. 5. Fluid, electrolytes, nutrition. Currently, n.p.o. 6. Deep vein thrombosis prophylaxis. Continue aspirin and Jered hose. 7. Gastrointestinal prophylaxis. Continue proton pump inhibitors. 8. Plan. Continue postoperative care as per cardiac surgery. Continue ICU monitoring. The case was discussed with Dr. Sanchez. Critical care time: 35 minutes. GOPI SANCHEZ MD AM/NTS Conf#: [id number] DID#: [id number] CC: ERI DIXON MD;*EndCC* MTDD
[2016-04-24] MEDS: FAMOTIDINE 20 MG INJ IV SCH (19:50)
[2016-04-24] MEDS: ATORVASTATIN 80 MG TAB PO SCH (21:00)
[2016-04-24] MEDS: ACETAMINOPHEN 325 MG TAB PO PRN (22:54)
[2016-04-24] MEDS: ZOLPIDEM 5 MG TAB PO PRN (23:06)
[2016-04-25] VITALS (53 sets, daily range): BP systolic 90–125; BP diastolic 50–80; PULSE 89–132; RESP 12–26; TEMP 98.4–101.6
[2016-04-25] MEDS: HYDROmorphONE 1 MG/ML SYG IV PRN ×4 (00:09→23:45)
[2016-04-25] MEDS: INSULIN ASPART [NOVOLOG] 3 ML PEN SC SCH ×6 (00:30→21:00)
[2016-04-25] MEDS: ACCUCHECK XX SCH ×24 (00:30→23:30)
[2016-04-25 05:03] LABS: EOSINOPHILS % 0.2 % (0.0-7.0); HEMATOCRIT 36.7 % (42.0-52.0); HEMOGLOBIN 12.8 g/dl (14.0-18.0); LYMPHOCYTES # 0.8 10^3/ul (0.8-2.9); LYMPHOCYTES % 5.8 % (15.0-51.0); MEAN CORPUSCULAR HGB CONC 34.7 g/dl (32.0-37.0); MEAN CORPUSCULAR VOLUME 89.3 fl (82.0-101.0); MEAN PLATELET VOLUME 9.2 fl (7.4-10.4); MONOCYTE # 1.4 10^3/ul (0.3-0.9); MONOCYTES % 10.7 % (0.0-11.0); NEUTROPHIL # 10.9 10^3/ul (1.6-7.5); NEUTROPHILS % 83.3 % (39.0-77.0); PLATELET COUNT 165 10^3/UL (140-440); RED BLOOD COUNT 4.12 10^6/ul (4.70-6.10); RED CELL DISTRIBUTION WIDTH 13.4 % (11.5-14.5)
[2016-04-25 05:12] LABS: ALBUMIN 3.9 g/dl (3.3-4.9)
[2016-04-25 05:13] LABS: POTASSIUM 4.5 mmol/L (3.5-5.1)
[2016-04-25 05:15] LABS: ALBUMIN/GLOBULIN RATIO 1.56; BILIRUBIN,INDIRECT 0.5 mg/dl (0-1.1); BILIRUBIN,TOTAL 0.5 mg/dl (0.2-1.3); TOTAL PROTEIN 6.4 g/dl (6.1-8.1)
[2016-04-25 05:16] LABS: INR 1.21; PROTIME 15.4 Sec (12.2-14.2); PT RATIO 1.2
[2016-04-25 05:17] LABS: PARTIAL THROMBOPLASTIN TIME 42.5 Sec (25.0-35.0)
[2016-04-25 05:21] LABS: AADO2 Arterial 40.1 mmHg (7.0-24.0); Arterial Base Excess -3.2 mmol/L (-3.0-3); Arterial COHb 0.5 % (0.0-3.0); Arterial Fraction of Oxyhgb 94.7 % (93.0-99.0); Arterial HCO3 22.1 mmol/L (22.0-26.0); Arterial MetHb 0.3 % (0.0-1.5); Arterial Total Hemglobin 14.1 g/dl (12.0-18.0); MODE NASAL CANNULA
[2016-04-25] MEDS: CEFAZOLIN 1 GM/50 ML (PMX) 50 ML IVPB SCH (05:51)
[2016-04-25 05:59] LABS: CONDITION 1
--- NOTE | 2016-04-25 06:30 | RADRPT ---
PROCEDURE: XR, Chest. CLINICAL INDICATION: Follow up for respiratory distress/postop follow-up for CABG. TECHNIQUE: AP chest. COMPARISON: Chest, 04/24/2016. FINDINGS: The heart remains enlarged. The lungs are well expanded. No pleural effusion. There is no acute i nfiltrate in the lungs. There has been interval removal of the ET tube. These [place]-Shanika catheter, mediastinal drain and lef t basilar chest tube remain in good position. IMPRESSION: 1. Cardiomegaly, unchanged. 2. Interval removal of the ET tube. RPTAT: GG .Jeffrey Harirson MD, MD Date Time Electronically viewed and signed by .Jeffrey Harrison MD, MD on 04/25/2016 06:30 .Y/
[2016-04-25] MEDS: POTASSIUM CHLORIDE 40 MEQ, CALCIUM CHLORIDE 10% 1 GM in DEXTROSE 5%-0.225% NACL 1,000 ML IV SCH (08:10)
--- NOTE | 2016-04-25 08:49 | PN ---
Date/Time of Note Date/Time of Note DATE: 04/25/16 TIME: 08:48 Assessment/Plan VTE Prophylaxis VTE Prophylaxis Intervention: anti-embolic stocking Lines/Catheters IV Catheter Type (from Nrs): Central Line Central line still needed: Yes Urinary Cath still in place: Yes Reason Cath still needed: other (indicate) (To be discontinued.) Assessment/Plan Chief Complaint/Hosp Course 1. Non-ST elevation myocardial infarction with left heart catheterization revealing 3-vessel coronary artery disease. Status post coronary artery bypass grafting x4 on 04/24/2016. Continue postoperative management as per cardiac surgery. The patient had a coronary artery bypass grafting x4, left internal mammary artery to left anterior descending and saphenous vein graft to proximal posterior descending and saphenous vein graft to diagonal artery 1, sequenced to obtuse marginal artery. 2. Cardiomyopathy with ejection fraction of 25% to 30%. Most probably ischemic cardiomyopathy. Continue to optimize cardiac medications. 3. Dyslipidemia. Continue statins. 4. Pre-diabetes. Hemoglobin A1c 6.0. Continue optimal blood sugar control. 5. Systemic inflammatory response syndrome with leukocytosis, sinus tachycardia , and a febrile illness. Most probably reactive/stress related. Monitor. 6. Fluid, electrolytes, nutrition. Advance diet as tolerated to a regular consistency diet. 7. Deep vein thrombosis prophylaxis. Continue aspirin. Continue antiembolic stockings. 8. Gastrointestinal prophylaxis. Continue proton pump inhibitors. 9. Plan. Continue postoperative care as per cardiac surgery. Continue ICU monitoring. The case was discussed with Dr. Sanchez. Critical care time: 35 minutes. Problems: Subjective 24 Hr Interval Summary Free Text/Dictation Incisional pain well controlled. Exam/Review of Systems Vital Signs Vitals Vital Signs Date Time Temp Pulse Resp B/P Pulse Ox O2 Delivery O2 Flow Rate FiO2 04/25/16 08:03 Nasal Cannula 2.0 04/25/16 07:30 100.4 106 14 119/64 98 04/24/16 16:26 30 Intake and Output 04/24/16 04/24/16 04/25/16 15:00 23:00 07:00 Intake Total 2000 ml 1426.06 ml 407.6 ml Output Total 2180 ml 1126 ml 437 ml Balance -180 ml 300.06 ml -29.4 ml Exam GENERAL: This is a well-built, well-nourished male lying in bed in mild distress secondary to underlying pain. HEENT: Head normocephalic and atraumatic. Eyes: Anicteric sclerae. Conjunctivae clear. ENT: Nasal septum is midline. Oral mucosa is dry. NECK: Supple. Right IJ Addison-Shanika catheter in place. No JVD noticed. RESPIRATORY: Bilaterally diminished breath sounds. No adventitious breath sounds. No use of accessory muscles of respiration. CARDIAC: Regular rate and rhythm. Dressing over sternotomy clean, dry, and intact. Cardiac pacer wires in place. ABDOMEN: Soft, nontender, and nondistended. Bowel sounds hypoactive in all 4 quadrants. GENITOURINARY: The patient has a Shine catheter in place. EXTREMITIES: Left lower extremity Dave wrap over the vein grafting site. Right lower extremity, no edema. Peripheral pulses are palpable. Left radial A-line. NEUROLOGIC: The patient is awake, alert, and oriented. Cranial nerves are grossly intact. Results Result Diagram: 04/25/16 0400 04/25/16 0400 Results 24 hrs Laboratory Tests Test 04/24/16 12:59 04/24/16 13:14 04/24/16 13:49 04/24/16 17:00 Arterial Blood HCO3 20.8 L 22.7 Arterial Blood Base Excess -4.9 L -2.8 Arterial Blood Oxygen Saturation 93.1 L 96.3 Jesse Test N/A N/A Arterial Blood Gas Puncture Site A-Line A-Line Arterial Blood Carboxyhemoglobin 0.1 0.2 Arterial Blood Date Drawn 04/24/2016 1:50:37 PM 04/24/2016 4:55:00 PM Arterial Blood Methemoglobin 0.5 0.5 Arterial Blood pCO2 (Temp correct) 41.3 41.8 Arterial Blood pH (Temp corrected) 7.321 L 7.352 Arterial Blood pO2 (Temp corrected) 73.2 L 91.5 Blood Gas A-a O2 Differential 309.2 H 73.3 H Blood Gas Actual Respiration Rate 20 20 Blood Gas Low PEEP Setting 5.0 5.0 Blood Gas Modality VENT - AC VENT - CPAP Blood Gas Notified Time 04/24/2016 1:50:30 PM 04/24/2016 5:04:00 PM Blood Gas Notified Whom M.D. MCarlosDCarlos Blood Gas Respiration Rate 14.0 Blood Gas Specimen Source Blood arterial Blood arterial Blood Gas Temperature 37.0 37.0 Blood Gas Tidal Volume 500.0 FiO2 60.0 30.0 Oxyhemoglobin Percent 92.5 L 95.6 Total Hemoglobin 15.2 14.0 Bedside Glucose 126 Activated Partial Thromboplast Time 38.0 H Anion Gap 19 H Basophils # 0.1 Basophils % 0.3 Blood Urea Nitrogen 18 Calcium Level 9.2 Carbon Dioxide Level 22 Chloride Level 105 Creatinine 1.16 Eosinophils # 0.2 Eosinophils % 1.1 Glucose Level 129 Hematocrit 41.5 L Hemoglobin 14.2 INR International Normalized Ratio 1.31 Lymphocytes # 2.6 Lymphocytes % 12.9 L Magnesium Level 3.0 H Mean Corpuscular Hemoglobin 30.4 Mean Corpuscular Hemoglobin Concent 34.2 Mean Corpuscular Volume 88.9 Mean Platelet Volume 8.8 Monocytes # 1.2 H Monocytes % 5.9 Neutrophils # 15.9 H Neutrophils % 79.8 H Nucleated Red Blood Cells # 0.0 Nucleated Red Blood Cells % 0.0 Platelet Count 168 # Potassium Level 4.0 Prothrombin Time 16.4 #H Prothrombin Time Ratio 1.3 Red Blood Count 4.66 L Red Cell Distribution Width 13.0 Sodium Level 142 White Blood Count 19.9 #H Blood Gas Pressure Support 10 Test 04/24/16 17:27 04/24/16 17:40 04/24/16 21:31 04/25/16 00:22 Bedside Glucose 138 137 152 Magnesium Level 2.7 H Potassium Level 4.0 Test 04/25/16 04:00 04/25/16 04:43 04/25/16 05:00 Activated Partial Thromboplast Time 42.5 H Alanine Aminotransferase (ALT/SGPT) 89 H Albumin 3.9 Albumin/Globulin Ratio 1.56 Alkaline Phosphatase 50 Anion Gap 18 H Aspartate Amino Transf (AST/SGOT) 124 H Basophils # 0.0 Basophils % 0.0 Blood Urea Nitrogen 17 Calcium Level 9.0 Carbon Dioxide Level 23 Chloride Level 108 Creatinine 1.00 Direct Bilirubin 0.00 Eosinophils # 0.0 Eosinophils % 0.2 Globulin 2.50 Glucose Level 149 Hematocrit 36.7 L Hemoglobin 12.8 L INR International Normalized Ratio 1.21 Indirect Bilirubin 0.5 Lymphocytes # 0.8 Lymphocytes % 5.8 L Mean Corpuscular Hemoglobin 31.0 Mean Corpuscular Hemoglobin Concent 34.7 Mean Corpuscular Volume 89.3 Mean Platelet Volume 9.2 Monocytes # 1.4 H Monocytes % 10.7 Neutrophils # 10.9 H Neutrophils % 83.3 H Nucleated Red Blood Cells # 0.0 Nucleated Red Blood Cells % 0.0 Phosphorus Level 4.1 Platelet Count 165 Potassium Level 4.5 Prothrombin Time 15.4 H Prothrombin Time Ratio 1.2 Red Blood Count 4.12 L Red Cell Distribution Width 13.4 Sodium Level 144 Total Bilirubin 0.5 Total Protein 6.4 White Blood Count 13.0 #H Bedside Glucose 138 Arterial Blood HCO3 22.1 Arterial Blood Base Excess -3.2 L Arterial Blood Oxygen Saturation 95.5 Jesse Test N/A Arterial Blood Gas Puncture Site A-Line Arterial Blood Carboxyhemoglobin 0.5 Arterial Blood Date Drawn 04/25/2016 5:13:01 AM Arterial Blood Methemoglobin 0.3 Arterial Blood pCO2 (Temp correct) 40.5 Arterial Blood pH (Temp corrected) 7.354 Arterial Blood pO2 (Temp corrected) 82.8 Blood Gas A-a O2 Differential 40.1 H Blood Gas Modality NASAL CANNULA Blood Gas Notified Time 04/25/2016 5:21:42 AM Blood Gas Notified Whom KM Blood Gas Specimen Source Blood arterial Blood Gas Temperature 37.0 FiO2 24.0 Oxyhemoglobin Percent 94.7 Total Hemoglobin 14.1 Medications Medications Current Medications Docusate Sodium (Colace) 100 mg Q12H PRN PO CONSTIPATION; Start 04/19/16 at 19: 30 Zolpidem Tartrate (Ambien) 5 mg QHS PRN PO SLEEP Last administered on 23:06; Admin Dose 5 MG; Start 04/19/16 at 19:30 Nitroglycerin (Nitroglycerin (Sl Tab) 0.4 Mg) 1 tab Q5M PRN SL CHEST PAIN; Start 04/19/16 at 19:30 Morphine Sulfate (morphine) 4 mg Q2H PRN IV PAIN LEVEL 7-10; Start 04/19/16 at 19:30 Atorvastatin Calcium (Lipitor) 80 mg HS PO Last administered on 04/23/16 21:50 ; Admin Dose 80 MG; Start 04/19/16 at 21:00 Acetaminophen (Tylenol Tab) 650 mg Q4H PRN PO NON-CARDIAC PAIN LEVEL (1-3) Last administered on 04/24/16 22:54; Admin Dose 650 MG; Start 04/20/16 at 08:30 Morphine Sulfate (morphine) 2 mg Q2H PRN IV FOR NON CARDIAC PAIN (4-10); Start 04/20/16 at 08:30 Enoxaparin Sodium (Lovenox) 75 mg Q12 SC Last administered on 04/23/16 21:56; Admin Dose 75 MG; Start 04/20/16 at 15:00 Promethazine HCl/ Codeine (Phenergan/ Codeine) 5 ml Q4H PRN PO COUGH Last administered on 04/23/16 23:42; Admin Dose 5 ML; Start 04/22/16 at 18:00 Miscellaneous Information 1 ea NOTE XX ; Start 04/24/16 at 07:30 Glucose (Glutose) 15 gm Q15M PRN PO DECREASED GLUCOSE; Start 04/24/16 at 07:30 Glucose (Glutose) 22.5 gm Q15M PRN PO DECREASED GLUCOSE; Start 04/24/16 at 07: 30 Dextrose (D50w Syringe) 25 ml Q15M PRN IV DECREASED GLUCOSE; Start 04/24/16 at 07:30 Dextrose (D50w Syringe) 50 ml Q15M PRN IV DECREASED GLUCOSE; Start 04/24/16 at 07:30 Glucagon (Glucagen) 1 mg Q15M PRN IM DECREASED GLUCOSE; Start 04/24/16 at 07:30 Glucose 15 gm 15 gm Q15M PRN BUCCAL DECREASED GLUCOSE; Start 04/24/16 at 07:30 Potassium Chloride/Calcium Chloride/Dextrose/ Sodium Chloride (KCl/Ca Chloride/ D5-1/4ns) 1,030 ml @ 60 mls/hr [id number] IV Last administered on 04/24/16 15:11 ; Admin Dose 60 MLS/HR; Start 04/24/16 at 15:00 Hydromorphone HCl (Dilaudid) 0.2 mg Q15M PRN IV PAIN LEVEL 1-5; Start 04/24/16 at 13:00 Hydromorphone HCl (Dilaudid) 0.4 mg Q15M PRN IV PAIN LEVEL 6-10 Last administered on 04/25/16 05:56; Admin Dose 0.4 MG; Start 04/24/16 at 13:00 Oxycodone/ Acetaminophen (Percocet (5/ 325)) 1 tab Q3H PRN PO PAIN LEVEL 1-5; Start 04/24/16 at 13:00 Oxycodone/ Acetaminophen (Percocet (5/ 325)) 2 tab Q3H PRN PO PAIN LEVEL 6-10; Start 04/24/16 at 13:00 Ondansetron HCl (Zofran Inj) 4 mg Q6H PRN IV NAUSEA AND/OR VOMITING; Start at 13:00 Famotidine (Pepcid Iv) 20 mg BID@08,20 IV Last administered on 04/24/16 19:50 ; Admin Dose 20 MG; Start 04/24/16 at 20:00 Aspirin (Aspirin) 325 mg DAILY PO ; Start 04/25/16 at 09:00 Insulin Aspart (Novolog Insulin Pen) NOVOLOG *MILD* ALGORI... Q4 SC Last administered on 04/25/16 00:30; Admin Dose 1 UNIT; Start 04/24/16 at 17:00 Diagnostic Test (Pha) 1 ea 1 ea Q1H XX ; Start 04/24/16 at 13:30 Milrinone Lactate 100 ml @ 8.325 mls/ hr TITRATE IV ; Start 04/24/16 at 15:30 Norepinephrine 250 ml @ 1.875 mls/ hr TITRATE IV Last administered on 15:46; Admin Dose 3.75 MLS/HR; Start 04/24/16 at 15:30 Magnesium Sulfate (Magnesium Sulfate 2 Gm/50 ml) 50 ml @ 25 mls/hr ONCE PRN IVPB MAG LEVEL <2.5; Start 04/24/16 at 17:30; Stop 04/25/16 at 17:29 GOPI BALL NP Apr 25, 2016 08:49
[2016-04-25] MEDS: ASPIRIN 325 MG TAB PO SCH (09:00)
[2016-04-25] MEDS: FAMOTIDINE 20 MG INJ IV SCH ×2 (10:18→20:00)
[2016-04-25] MEDS: ENOXAPARIN 100 MG/ML SYG SC SCH ×2 (10:20→21:14)
--- NOTE | 2016-04-25 10:57 | CONS ---
Date/Time of Note Date/Time of Note DATE: 04/25/16 TIME: 10:51 Assessment/Plan Assessment/Plan Chief Complaint/Hosp Course CAD s/p CAB04/24/2016 (GARNER-LAD, SVG-PDA, SVG-D1-OM). Off pressors. Chest tube still in place NSTEMI: Trop up to 15 and not trended further. Cath with significant CAD (mid LAD 99% with reduced flow, prox Diag 90%, mid RCA 100% [employer] with collaterals). Acute systolic heart failure: EF 25-30%. mild decompensation by exam and CVP ~9 this am. Asymptomatic and just off levophed so will not diurese yet. SVT: short runs of ?AT vs aflutter/fib which is common post-op. Will observe for now and if needed start amiodarone +/- BB if BP tolerates. -continue ASA 325mg, lipitor -start coreg later today or tomorrow if BP stable -needs ACEI eventually -possible lasix tomorrow Problems: Consultation Date/Type/Reason Admit Date/Time Apr 19, 2016 at 18:03 Initial Consult Date 04/20/16 Type of Consultation: Cardiology 24 HR Interval Summary Free Text/Dictation Some agitation/confusion this am but resolved. Now alert/cooperative. mild chest pain with cough. No SOB. Kareem d/c-ed. Had some short runs of SVT (?AT vs aflutter) on tele. Exam/Review of Systems Vital Signs Vitals Vital Signs Date Time Temp Pulse Resp B/P Pulse Ox O2 Delivery O2 Flow Rate FiO2 04/25/16 10:30 98.4 118 15 98 04/25/16 09:00 117/63 04/25/16 08:03 Nasal Cannula 2.0 04/24/16 16:26 30 Intake and Output 04/24/16 04/24/16 04/25/16 15:00 23:00 07:00 Intake Total 2000 ml 1426.06 ml 407.6 ml Output Total 2180 ml 1126 ml 437 ml Balance -180 ml 300.06 ml -29.4 ml Exam Constitutional: alert, oriented Psych: no complaints Head: atraumatic, normocephalic Neck: jvd (9cm) Respiratory: crackles/rales, diminished breath sounds, No clear to auscultation Cardiovascular: No edema, No regular rate and rhythm (tachycardia ~100-110), No systolic murmur Gastrointestinal: soft, No non-tender Neurological: nl mental status, nl speech Results Result Diagram: 04/25/1639904/25/16 0400 Results 24 hrs Laboratory Tests Test 04/24/16 12:59 04/24/16 13:14 04/24/16 13:49 04/24/16 17:00 Arterial Blood HCO3 20.8 L 22.7 Arterial Blood Base Excess -4.9 L -2.8 Arterial Blood Oxygen Saturation 93.1 L 96.3 Jesse Test N/A N/A Arterial Blood Gas Puncture Site A-Line A-Line Arterial Blood Carboxyhemoglobin 0.1 0.2 Arterial Blood Date Drawn 04/24/2016 1:50:37 PM 04/24/2016 4:55:00 PM Arterial Blood Methemoglobin 0.5 0.5 Arterial Blood pCO2 (Temp correct) 41.3 41.8 Arterial Blood pH (Temp corrected) 7.321 L 7.352 Arterial Blood pO2 (Temp corrected) 73.2 L 91.5 Blood Gas A-a O2 Differential 309.2 H 73.3 H Blood Gas Actual Respiration Rate 20 20 Blood Gas Low PEEP Setting 5.0 5.0 Blood Gas Modality VENT - AC VENT - CPAP Blood Gas Notified Time 04/24/2016 1:50:30 PM 04/24/2016 5:04:00 PM Blood Gas Notified Whom M.D. M.DCarlos Blood Gas Respiration Rate 14.0 Blood Gas Specimen Source Blood arterial Blood arterial Blood Gas Temperature 37.0 37.0 Blood Gas Tidal Volume 500.0 FiO2 60.0 30.0 Oxyhemoglobin Percent 92.5 L 95.6 Total Hemoglobin 15.2 14.0 Bedside Glucose 126 Activated Partial Thromboplast Time 38.0 H Anion Gap 19 H Basophils # 0.1 Basophils % 0.3 Blood Urea Nitrogen 18 Calcium Level 9.2 Carbon Dioxide Level 22 Chloride Level 105 Creatinine 1.16 Eosinophils # 0.2 Eosinophils % 1.1 Glucose Level 129 Hematocrit 41.5 L Hemoglobin 14.2 INR International Normalized Ratio 1.31 Lymphocytes # 2.6 Lymphocytes % 12.9 L Magnesium Level 3.0 H Mean Corpuscular Hemoglobin 30.4 Mean Corpuscular Hemoglobin Concent 34.2 Mean Corpuscular Volume 88.9 Mean Platelet Volume 8.8 Monocytes # 1.2 H Monocytes % 5.9 Neutrophils # 15.9 H Neutrophils % 79.8 H Nucleated Red Blood Cells # 0.0 Nucleated Red Blood Cells % 0.0 Platelet Count 168 # Potassium Level 4.0 Prothrombin Time 16.4 #H Prothrombin Time Ratio 1.3 Red Blood Count 4.66 L Red Cell Distribution Width 13.0 Sodium Level 142 White Blood Count 19.9 #H Blood Gas Pressure Support 10 Test 04/24/16 17:27 04/24/16 17:40 04/24/16 21:31 04/25/16 00:22 Bedside Glucose 138 137 152 Magnesium Level 2.7 H Potassium Level 4.0 Test 04/25/16 04:00 04/25/16 04:43 04/25/16 05:00 04/25/16 10:18 Activated Partial Thromboplast Time 42.5 H Alanine Aminotransferase (ALT/SGPT) 89 H Albumin 3.9 Albumin/Globulin Ratio 1.56 Alkaline Phosphatase 50 Anion Gap 18 H Aspartate Amino Transf (AST/SGOT) 124 H Basophils # 0.0 Basophils % 0.0 Blood Urea Nitrogen 17 Calcium Level 9.0 Carbon Dioxide Level 23 Chloride Level 108 Creatinine 1.00 Direct Bilirubin 0.00 Eosinophils # 0.0 Eosinophils % 0.2 Globulin 2.50 Glucose Level 149 Hematocrit 36.7 L Hemoglobin 12.8 L INR International Normalized Ratio 1.21 Indirect Bilirubin 0.5 Lymphocytes # 0.8 Lymphocytes % 5.8 L Mean Corpuscular Hemoglobin 31.0 Mean Corpuscular Hemoglobin Concent 34.7 Mean Corpuscular Volume 89.3 Mean Platelet Volume 9.2 Monocytes # 1.4 H Monocytes % 10.7 Neutrophils # 10.9 H Neutrophils % 83.3 H Nucleated Red Blood Cells # 0.0 Nucleated Red Blood Cells % 0.0 Phosphorus Level 4.1 Platelet Count 165 Potassium Level 4.5 Prothrombin Time 15.4 H Prothrombin Time Ratio 1.2 Red Blood Count 4.12 L Red Cell Distribution Width 13.4 Sodium Level 144 Total Bilirubin 0.5 Total Protein 6.4 White Blood Count 13.0 #H Bedside Glucose 138 157 Arterial Blood HCO3 22.1 Arterial Blood Base Excess -3.2 L Arterial Blood Oxygen Saturation 95.5 Jesse Test N/A Arterial Blood Gas Puncture Site A-Line Arterial Blood Carboxyhemoglobin 0.5 Arterial Blood Date Drawn 04/25/2016 5:13:01 AM Arterial Blood Methemoglobin 0.3 Arterial Blood pCO2 (Temp correct) 40.5 Arterial Blood pH (Temp corrected) 7.354 Arterial Blood pO2 (Temp corrected) 82.8 Blood Gas A-a O2 Differential 40.1 H Blood Gas Modality NASAL CANNULA Blood Gas Notified Time 04/25/2016 5:21:42 AM Blood Gas Notified Whom KM Blood Gas Specimen Source Blood arterial Blood Gas Temperature 37.0 FiO2 24.0 Oxyhemoglobin Percent 94.7 Total Hemoglobin 14.1 Medications Medications Current Medications Docusate Sodium (Colace) 100 mg Q12H PRN PO CONSTIPATION; Start 04/19/16 at 19: 30 Zolpidem Tartrate (Ambien) 5 mg QHS PRN PO SLEEP Last administered on 23:06; Admin Dose 5 MG; Start 04/19/16 at 19:30 Nitroglycerin (Nitroglycerin (Sl Tab) 0.4 Mg) 1 tab Q5M PRN SL CHEST PAIN; Start 04/19/16 at 19:30 Morphine Sulfate (morphine) 4 mg Q2H PRN IV PAIN LEVEL 7-10; Start 04/19/16 at 19:30 Atorvastatin Calcium (Lipitor) 80 mg HS PO Last administered on 04/23/16 21:50 ; Admin Dose 80 MG; Start 04/19/16 at 21:00 Acetaminophen (Tylenol Tab) 650 mg Q4H PRN PO NON-CARDIAC PAIN LEVEL (1-3) Last administered on 04/24/16 22:54; Admin Dose 650 MG; Start 04/20/16 at 08:30 Morphine Sulfate (morphine) 2 mg Q2H PRN IV FOR NON CARDIAC PAIN (4-10); Start 04/20/16 at 08:30 Enoxaparin Sodium (Lovenox) 75 mg Q12 SC Last administered on 04/25/16 10:20; Admin Dose 75 MG; Start 04/20/16 at 15:00 Promethazine HCl/ Codeine (Phenergan/ Codeine) 5 ml Q4H PRN PO COUGH Last administered on 04/23/16 23:42; Admin Dose 5 ML; Start 04/22/16 at 18:00 Miscellaneous Information 1 ea NOTE XX ; Start 04/24/16 at 07:30 Glucose (Glutose) 15 gm Q15M PRN PO DECREASED GLUCOSE; Start 04/24/16 at 07:30 Glucose (Glutose) 22.5 gm Q15M PRN PO DECREASED GLUCOSE; Start 04/24/16 at 07: 30 Dextrose (D50w Syringe) 25 ml Q15M PRN IV DECREASED GLUCOSE; Start 04/24/16 at 07:30 Dextrose (D50w Syringe) 50 ml Q15M PRN IV DECREASED GLUCOSE; Start 04/24/16 at 07:30 Glucagon (Glucagen) 1 mg Q15M PRN IM DECREASED GLUCOSE; Start 04/24/16 at 07:30 Glucose 15 gm 15 gm Q15M PRN BUCCAL DECREASED GLUCOSE; Start 04/24/16 at 07:30 Potassium Chloride/Calcium Chloride/Dextrose/ Sodium Chloride (KCl/Ca Chloride/ D5-1/4ns) 1,030 ml @ 60 mls/hr [id number] IV Last administered on 04/24/16 15:11 ; Admin Dose 60 MLS/HR; Start 04/24/16 at 15:00 Hydromorphone HCl (Dilaudid) 0.2 mg Q15M PRN IV PAIN LEVEL 1-5; Start 04/24/16 at 13:00 Hydromorphone HCl (Dilaudid) 0.4 mg Q15M PRN IV PAIN LEVEL 6-10 Last administered on 04/25/16 05:56; Admin Dose 0.4 MG; Start 04/24/16 at 13:00 Oxycodone/ Acetaminophen (Percocet (5/ 325)) 1 tab Q3H PRN PO PAIN LEVEL 1-5; Start 04/24/16 at 13:00 Oxycodone/ Acetaminophen (Percocet (5/ 325)) 2 tab Q3H PRN PO PAIN LEVEL 6-10; Start 04/24/16 at 13:00 Ondansetron HCl (Zofran Inj) 4 mg Q6H PRN IV NAUSEA AND/OR VOMITING; Start at 13:00 Famotidine (Pepcid Iv) 20 mg BID@08,20 IV Last administered on 04/25/16 10:18 ; Admin Dose 20 MG; Start 04/24/16 at 20:00 Aspirin (Aspirin) 325 mg DAILY PO Last administered on 2/21/17at 09:00; Admin Dose 325 MG; Start 04/25/16 at 09:00 Insulin Aspart (Novolog Insulin Pen) NOVOLOG *MILD* ALGORI... Q4 SC Last administered on 04/25/16 10:22; Admin Dose 1 UNIT; Start 04/24/16 at 17:00 Diagnostic Test (Pha) 1 ea 1 ea Q1H XX ; Start 04/24/16 at 13:30 Milrinone Lactate 100 ml @ 8.325 mls/ hr TITRATE IV ; Start 04/24/16 at 15:30 Norepinephrine 250 ml @ 1.875 mls/ hr TITRATE IV Last administered on t 15:46; Admin Dose 3.75 MLS/HR; Start 04/24/16 at 15:30 Magnesium Sulfate (Magnesium Sulfate 2 Gm/50 ml) 50 ml @ 25 mls/hr ONCE PRN IVPB MAG LEVEL <2.5; Start 04/24/16 at 17:30; Stop 04/25/16 at 17:29 SANDRO BABIN Apr 25, 2016 10:57
[2016-04-25] MEDS ORDERED: MAGNESIUM SULFATE 2 GM/50 ML 50 ML IVPB ONE (11:00)
[2016-04-25] MEDS ORDERED: POTASSIUM CHLORIDE 20 MEQ POWDER FOR ORAL SOLN PO ONE (11:00)
[2016-04-25] MEDS: OXYCODONE/ACETAMINOPHEN (5/325) TAB PO PRN ×3 (11:40→19:28)
--- NOTE | 2016-04-25 12:43 | PN ---
Date/Time of Note Date/Time of Note DATE: 04/25/16 TIME: 12:42 Assessment/Plan Lines/Catheters IV Catheter Type (from Nrs): Central Line Shine in Place (from Nrs): Yes Assessment/Plan Assessment/Plan sitting in chair off pressors frequent pvcs, getting Mg HR 106, start iv amio start coreg when BP increases cxr clear leave in icu Exam/Review of Systems Vital Signs Vitals Vital Signs Date Time Temp Pulse Resp B/P Pulse Ox O2 Delivery O2 Flow Rate FiO2 04/25/16 10:30 98.4 118 15 98 04/25/16 09:00 117/63 04/25/16 08:03 Nasal Cannula 2.0 04/24/16 16:26 30 Intake and Output 04/24/16 04/24/16 04/25/16 15:00 23:00 07:00 Intake Total 2000 ml 1426.06 ml 407.6 ml Output Total 2180 ml 1126 ml 437 ml Balance -180 ml 300.06 ml -29.4 ml Results Result Diagram: 04/25/160 04/25/160 PAWEL WOODS MD Apr 25, 2016 12:43
[2016-04-25] MEDS ORDERED: AMIODARONE 900 MG in DEXTROSE 5% 482 ML IV SCH (13:00)
[2016-04-25] MEDS: ATORVASTATIN 80 MG TAB PO SCH (21:12)
[2016-04-25] MEDS: PROMETHAZINE/CODEINE 5ML CUP PO PRN (22:20)
[2016-04-26] VITALS (19 sets, daily range): BP systolic 98–129; BP diastolic 55–89; PULSE 81–108; RESP 11–23
[2016-04-26] MEDS: ACCUCHECK XX SCH ×7 (00:30→07:03)
[2016-04-26] MEDS: INSULIN ASPART [NOVOLOG] 3 ML PEN SC SCH ×6 (01:00→21:00)
[2016-04-26] MEDS: ACETAMINOPHEN 325 MG TAB PO PRN ×2 (01:14→18:09)
[2016-04-26] MEDS: POTASSIUM CHLORIDE 40 MEQ, CALCIUM CHLORIDE 10% 1 GM in DEXTROSE 5%-0.225% NACL 1,000 ML IV SCH ×2 (01:20→17:46)
[2016-04-26] MEDS: ZOLPIDEM 5 MG TAB PO PRN ×2 (01:23→21:09)
[2016-04-26 04:50] LABS: BASOPHILS % 0.1 % (0.0-2.0); EOSINOPHILS % 0.1 % (0.0-7.0); HEMATOCRIT 32.6 % (42.0-52.0); HEMOGLOBIN 11.3 g/dl (14.0-18.0); LYMPHOCYTES # 1.4 10^3/ul (0.8-2.9); LYMPHOCYTES % 9.5 % (15.0-51.0); MEAN CORPUSCULAR HGB CONC 34.6 g/dl (32.0-37.0); MEAN CORPUSCULAR VOLUME 89.6 fl (82.0-101.0); MEAN PLATELET VOLUME 9.6 fl (7.4-10.4); MONOCYTE # 1.5 10^3/ul (0.3-0.9); MONOCYTES % 10.2 % (0.0-11.0); NEUTROPHIL # 11.4 10^3/ul (1.6-7.5); NEUTROPHILS % 80.1 % (39.0-77.0); PLATELET COUNT 119 10^3/UL (140-440); RED BLOOD COUNT 3.63 10^6/ul (4.70-6.10); RED CELL DISTRIBUTION WIDTH 12.9 % (11.5-14.5); UNCORRECTED WBC 14.3 10^3/ul (4.8-10.8); WHITE BLOOD COUNT 14.3 10^3/ul (4.8-10.8)
[2016-04-26 05:03] LABS: MAGNESIUM 2.4 mg/dl (1.7-2.5); PHOSPHORUS 2.6 mg/dl (2.5-4.9)
[2016-04-26 05:18] LABS: CONDITION 1
[2016-04-26 05:51] LABS: ALBUMIN 3.6 g/dl (3.3-4.9); POTASSIUM 3.9 mmol/L (3.5-5.1)
[2016-04-26 05:53] LABS: CREATININE 0.87 mg/dl (0.61-1.24)
[2016-04-26 05:54] LABS: ALBUMIN/GLOBULIN RATIO 1.38; BILIRUBIN,INDIRECT 0.6 mg/dl (0-1.1); BILIRUBIN,TOTAL 0.6 mg/dl (0.2-1.3); CALCIUM 8.6 mg/dl (8.4-10.2); TOTAL PROTEIN 6.2 g/dl (6.1-8.1)
[2016-04-26] MEDS ORDERED: POTASSIUM CHLORIDE (SR) 20 MEQ TAB PO ONE (06:21)
--- NOTE | 2016-04-26 06:23 | PN ---
Date/Time of Note Date/Time of Note DATE: 04/26/16 TIME: 06:22 Assessment/Plan Lines/Catheters IV Catheter Type (from Nrsg): Central Line Shine in Place (from Nrsg): Yes Assessment/Plan Assessment/Plan fewer pvcs on amio iv remove chest tubes replace K and Mg transfer to floor Exam/Review of Systems Vital Signs Vitals Vital Signs Date Time Temp Pulse Resp B/P Pulse Ox O2 Delivery O2 Flow Rate FiO2 04/26/16 04:00 95 04/26/16 04:00 15 112/73 Room Air 04/26/16 03:00 95 04/26/16 00:00 98.2 04/25/16 20:05 2.0 04/24/16 16:26 30 Intake and Output 04/25/16 04/25/16 04/26/16 15:00 23:00 07:00 Intake Total 649.35 ml 612.0 ml 285 ml Output Total 312 ml 760 ml 360 ml Balance 337.35 ml -148.0 ml -75 ml Results Result Diagram: 04/26/160 04/26/16 0400 PAWEL WOODS MD Apr 26, 2016 06:23
[2016-04-26] MEDS ORDERED: MAGNESIUM SULFATE 2 GM/50 ML 50 ML IVPB ONE (06:30)
--- NOTE | 2016-04-26 07:31 | RADRPT ---
PROCEDURE: XR, Chest. CLINICAL INDICATION: Follow up for respiratory distress/postop follow-up for CABG. TECHNIQUE: AP chest. COMPARISON: Chest, 04/25/2016. FINDINGS: The heart remains enlarged. The lungs are well expanded. There is no acute infiltrate in the lungs . No pleural lesion. There has been interval removal of the right Baxter-Shanika catheter. The right IJ Cordis catheter remai ns in good position. The left chest tube and mediastinal drain remains in good position. IMPRESSION: 1. Cardiomegaly, unchanged. RPTAT: GG .Jeffrey Harrison MD, MD Date Time Electronically viewed and signed by .Jeffrey Harrison MD, MD on 04/26/2016 07:31 .Y/
[2016-04-26] MEDS: HYDROmorphONE 1 MG/ML SYG IV PRN (08:25)
--- NOTE | 2016-04-26 09:36 | PN ---
Date/Time of Note Date/Time of Note DATE: 04/26/16 TIME: 09:34 Assessment/Plan VTE Prophylaxis VTE Prophylaxis Intervention: anti-embolic stocking Lines/Catheters [facility] Type (from [facility] Central Line Central line still needed: Yes Urinary Cath still in place: No Assessment/Plan Chief Complaint/Hosp Course 1. Non-ST elevation myocardial infarction with left heart catheterization revealing 3-vessel coronary artery disease. Status post coronary artery bypass grafting x4 on 04/24/2016. Continue postoperative management as per cardiac surgery. The patient had a coronary artery bypass grafting x4, left internal mammary artery to left anterior descending and saphenous vein graft to proximal posterior descending and saphenous vein graft to diagonal artery 1, sequenced to obtuse marginal artery. 2. Cardiomyopathy with ejection fraction of 25% to 30%. Most probably ischemic cardiomyopathy. Continue to optimize cardiac medications. 3. Dyslipidemia. Continue statins. 4. Pre-diabetes. Hemoglobin A1c 6.0. Continue optimal blood sugar control. 5. Systemic inflammatory response syndrome with leukocytosis, sinus tachycardia , and a febrile illness. Most probably reactive/stress related. Monitor. 6. Fluid, electrolytes, and nutrition. Advance diet as tolerated to a regular consistency diet. 7. Deep vein thrombosis prophylaxis. Continue aspirin. Continue antiembolic stockings. 8. Gastrointestinal prophylaxis. Continue proton pump inhibitors. 9. Plan. Continue postoperative care as per cardiac surgery. Transfer the patient to telemetry floor. The case was discussed with Dr. Sanchez. Critical care time: 35 minutes. Problems: Subjective 24 Hr Interval Summary Free Text/Dictation Chest pain well controlled. Chest tubes have been out. Exam/Review of Systems Vital Signs Vitals Vital Signs Date Time Temp Pulse Resp B/P Pulse Ox O2 Delivery O2 Flow Rate FiO2 04/26/16 08:00 96 04/26/16 04:00 15 112/73 Room Air 04/26/16 03:00 95 04/26/16 00:00 98.2 04/25/16 20:05 2.0 04/24/16 16:26 30 Intake and Output 04/25/16 04/25/16 04/26/16 15:00 23:00 07:00 Intake Total 649.35 ml 612.0 ml 319 ml Output Total 312 ml 760 ml 380 ml Balance 337.35 ml -148.0 ml -61 ml Exam GENERAL: This is a well-built, well-nourished male lying in bed in mild distress secondary to underlying pain. HEENT: Head normocephalic and atraumatic. Eyes: Anicteric sclerae. Conjunctivae clear. ENT: Nasal septum is midline. Oral mucosa is dry. NECK: Supple. Right IJ Cordis. No JVD noticed. RESPIRATORY: Bilaterally diminished breath sounds. No adventitious breath sounds. No use of accessory muscles of respiration. Chest tubes have been removed. CARDIAC: Regular rate and rhythm. Dressing over sternotomy clean, dry, and intact. ABDOMEN: Soft, nontender, and nondistended. Bowel sounds hypoactive in all 4 quadrants. GENITOURINARY: Deferred. EXTREMITIES: Left lower extremity dressing over the vein grafting site. Right lower extremity, no edema. Peripheral pulses are palpable. NEUROLOGIC: The patient is awake, alert, and oriented. Cranial nerves are grossly intact. Results Result Diagram: 04/26/16 0400 04/26/16 0400 Results 24 hrs Laboratory Tests Test 04/25/16 10:18 04/25/16 12:56 04/25/16 13:30 04/25/16 17:23 Bedside Glucose 157 145 146 Hematocrit 36.6 L Test 04/25/16 21:10 04/26/16 04:00 Bedside Glucose 130 Alanine Aminotransferase (ALT/SGPT) 71 H Albumin 3.6 Albumin/Globulin Ratio 1.38 Alkaline Phosphatase 50 Anion Gap 16 Aspartate Amino Transf (AST/SGOT) 102 H Basophils # 0.0 Basophils % 0.1 Blood Urea Nitrogen 16 Calcium Level 8.6 Carbon Dioxide Level 24 Chloride Level 103 Creatinine 0.87 Direct Bilirubin 0.00 Eosinophils # 0.0 Eosinophils % 0.1 Globulin 2.60 Glucose Level 150 Hematocrit 32.6 L Hemoglobin 11.3 L Indirect Bilirubin 0.6 Lymphocytes # 1.4 Lymphocytes % 9.5 L Magnesium Level 2.4 Mean Corpuscular Hemoglobin 31.0 Mean Corpuscular Hemoglobin Concent 34.6 Mean Corpuscular Volume 89.6 Mean Platelet Volume 9.6 Monocytes # 1.5 H Monocytes % 10.2 Neutrophils # 11.4 H Neutrophils % 80.1 H Nucleated Red Blood Cells # 0.0 Nucleated Red Blood Cells % 0.0 Phosphorus Level 2.6 Platelet Count 119 #L Potassium Level 3.9 Red Blood Count 3.63 L Red Cell Distribution Width 12.9 Sodium Level 139 Total Bilirubin 0.6 Total Protein 6.2 White Blood Count 14.3 H Medications Medications Current Medications Docusate Sodium (Colace) 100 mg Q12H PRN PO CONSTIPATION; Start 04/19/16 at 19: 30 Zolpidem Tartrate (Ambien) 5 mg QHS PRN PO SLEEP Last administered on 01:23; Admin Dose 5 MG; Start 04/19/16 at 19:30 Nitroglycerin (Nitroglycerin (Sl Tab) 0.4 Mg) 1 tab Q5M PRN SL CHEST PAIN; Start 04/19/16 at 19:30 Morphine Sulfate (morphine) 4 mg Q2H PRN IV PAIN LEVEL 7-10; Start 04/19/16 at 19:30 Atorvastatin Calcium (Lipitor) 80 mg HS PO Last administered on 04/25/16 21:12 ; Admin Dose 80 MG; Start 04/19/16 at 21:00 Acetaminophen (Tylenol Tab) 650 mg Q4H PRN PO NON-CARDIAC PAIN LEVEL (1-3) Last administered on 04/26/16 01:14; Admin Dose 650 MG; Start 04/20/16 at 08:30 Morphine Sulfate (morphine) 2 mg Q2H PRN IV FOR NON CARDIAC PAIN (4-10); Start 04/20/16 at 08:30 Enoxaparin Sodium (Lovenox) 75 mg Q12 SC Last administered on 04/25/16 21:14; Admin Dose 75 MG; Start 04/20/16 at 15:00 Promethazine HCl/ Codeine (Phenergan/ Codeine) 5 ml Q4H PRN PO COUGH Last administered on 04/25/16 22:20; Admin Dose 5 ML; Start 04/22/16 at 18:00 Miscellaneous Information 1 ea NOTE XX ; Start 04/24/16 at 07:30 Glucose (Glutose) 15 gm Q15M PRN PO DECREASED GLUCOSE; Start 04/24/16 at 07:30 Glucose (Glutose) 22.5 gm Q15M PRN PO DECREASED GLUCOSE; Start 04/24/16 at 07: 30 Dextrose (D50w Syringe) 25 ml Q15M PRN IV DECREASED GLUCOSE; Start 04/24/16 at 07:30 Dextrose (D50w Syringe) 50 ml Q15M PRN IV DECREASED GLUCOSE; Start 04/24/16 at 07:30 Glucagon (Glucagen) 1 mg Q15M PRN IM DECREASED GLUCOSE; Start 04/24/16 at 07:30 Glucose 15 gm 15 gm Q15M PRN BUCCAL DECREASED GLUCOSE; Start 04/24/16 at 07:30 Potassium Chloride/Calcium Chloride/Dextrose/ Sodium Chloride (KCl/Ca Chloride/ D5-1/4ns) 1,030 ml @ 60 mls/hr [id number] IV Last administered on 04/24/16 15:11 ; Admin Dose 60 MLS/HR; Start 04/24/16 at 15:00 Hydromorphone HCl (Dilaudid) 0.2 mg Q15M PRN IV PAIN LEVEL 1-5; Start 04/24/16 at 13:00 Hydromorphone HCl (Dilaudid) 0.4 mg Q15M PRN IV PAIN LEVEL 6-10 Last administered on 04/26/16 08:25; Admin Dose 0.4 MG; Start 04/24/16 at 13:00 Oxycodone/ Acetaminophen (Percocet (5/ 325)) 1 tab Q3H PRN PO PAIN LEVEL 1-5 Last administered on 04/25/16 19:28; Admin Dose 1 TAB; Start 04/24/16 at 13:00 Oxycodone/ Acetaminophen (Percocet (5/ 325)) 2 tab Q3H PRN PO PAIN LEVEL 6-10; Start 04/24/16 at 13:00 Ondansetron HCl (Zofran Inj) 4 mg Q6H PRN IV NAUSEA AND/OR VOMITING; Start at 13:00 Famotidine (Pepcid Iv) 20 mg BID@08,20 IV Last administered on 04/25/16 20:00 ; Admin Dose 20 MG; Start 04/24/16 at 20:00 Aspirin (Aspirin) 325 mg DAILY PO Last administered on 04/25/16 09:00; Admin Dose 325 MG; Start 04/25/16 at 09:00 Insulin Aspart (Novolog Insulin Pen) NOVOLOG *MILD* ALGORI... Q4 SC Last administered on 04/25/16 17:32; Admin Dose 1 UNIT; Start 04/24/16 at 17:00 Diagnostic Test (Pha) 1 ea 1 ea Q1H XX Last administered on 04/26/16 07:03; Admin Dose 1 EA; Start 04/24/16 at 13:30 Milrinone Lactate 100 ml @ 8.325 mls/ hr TITRATE IV ; Start 04/24/16 at 15:30 Norepinephrine (Levophed) 250 ml @ 1.875 mls/ hr TITRATE IV Last administered on 04/24/16 15:46; Admin Dose 3.75 MLS/HR; Start 04/24/16 at 15:30 Amiodarone HCl (Cordarone) 200 mg BID GTB ; Start 04/26/16 at 09:00 Carvedilol (Coreg) 3.125 mg BID GTB ; Start 04/26/16 at 09:00 GOPI BALL NP Apr 26, 2016 09:36
--- NOTE | 2016-04-26 09:58 | CONS ---
Date/Time of Note Date/Time of Note DATE: 04/26/16 TIME: 09:55 Assessment/Plan Assessment/Plan Chief Complaint/Hosp Course CAD s/p CAB04/24/2016 (GARNER-LAD, SVG-PDA, SVG-D1-OM). Off pressors. Chest tube removed. Doing well NSTEMI: Trop up to 15 and not trended further. Cath with significant CAD (mid LAD 99% with reduced flow, prox Diag 90%, mid RCA 100% [employer] with collaterals). Acute systolic heart failure: EF 25-30%. mild fluid overload by exam SVT: short runs of ?AT vs aflutter/fib which is common post-op. Was placed on amio drip, now PO -continue ASA 325mg, lipitor -agree with coreg -start ACEI tomorrow if tolerates -one dose of lasix 20mg IV -ok for amio, likely will not need it long-term Problems: Consultation Date/Type/Reason Admit Date/Time Apr 19, 2016 at 18:03 Initial Consult Date 04/20/16 Type of Consultation: Cardiology 24 HR Interval Summary Free Text/Dictation No o/n events. Has waxing waning confusion per RN and . Was placed on amiodarone o/n, now switched to PO. No further SVT or NSVT on tele Exam/Review of Systems Vital Signs Vitals Vital Signs Date Time Temp Pulse Resp B/P Pulse Ox O2 Delivery O2 Flow Rate FiO2 04/26/16 08:00 96 04/26/16 04:00 15 112/73 Room Air 04/26/16 03:00 95 04/26/16 00:00 98.2 04/25/16 20:05 2.0 04/24/16 16:26 30 Intake and Output 04/25/16 04/25/16 04/26/16 15:00 23:00 07:00 Intake Total 649.35 ml 612.0 ml 319 ml Output Total 312 ml 760 ml 380 ml Balance 337.35 ml -148.0 ml -61 ml Exam Constitutional: alert, oriented Head: normocephalic Neck: jvd (8cm) Respiratory: crackles/rales, No clear to auscultation Cardiovascular: regular rate and rhythm, No edema, No systolic murmur Gastrointestinal: soft Neurological: nl mental status, nl speech Results Result Diagram: 04/26/16 0400 04/26/16 0400 Results 24 hrs Laboratory Tests Test 04/25/16 10:18 04/25/16 12:56 04/25/16 13:30 04/25/16 17:23 Bedside Glucose 157 145 146 Hematocrit 36.6 L Test 04/25/16 21:10 04/26/16 04:00 Bedside Glucose 130 Alanine Aminotransferase (ALT/SGPT) 71 H Albumin 3.6 Albumin/Globulin Ratio 1.38 Alkaline Phosphatase 50 Anion Gap 16 Aspartate Amino Transf (AST/SGOT) 102 H Basophils # 0.0 Basophils % 0.1 Blood Urea Nitrogen 16 Calcium Level 8.6 Carbon Dioxide Level 24 Chloride Level 103 Creatinine 0.87 Direct Bilirubin 0.00 Eosinophils # 0.0 Eosinophils % 0.1 Globulin 2.60 Glucose Level 150 Hematocrit 32.6 L Hemoglobin 11.3 L Indirect Bilirubin 0.6 Lymphocytes # 1.4 Lymphocytes % 9.5 L Magnesium Level 2.4 Mean Corpuscular Hemoglobin 31.0 Mean Corpuscular Hemoglobin Concent 34.6 Mean Corpuscular Volume 89.6 Mean Platelet Volume 9.6 Monocytes # 1.5 H Monocytes % 10.2 Neutrophils # 11.4 H Neutrophils % 80.1 H Nucleated Red Blood Cells # 0.0 Nucleated Red Blood Cells % 0.0 Phosphorus Level 2.6 Platelet Count 119 #L Potassium Level 3.9 Red Blood Count 3.63 L Red Cell Distribution Width 12.9 Sodium Level 139 Total Bilirubin 0.6 Total Protein 6.2 White Blood Count 14.3 H Medications Medications Current Medications Zolpidem Tartrate (Ambien) 5 mg QHS PRN PO SLEEP Last administered on 01:23; Admin Dose 5 MG; Start 04/19/16 at 19:30 Nitroglycerin (Nitroglycerin (Sl Tab) 0.4 Mg) 1 tab Q5M PRN SL CHEST PAIN; Start 04/19/16 at 19:30 Morphine Sulfate (morphine) 4 mg Q2H PRN IV PAIN LEVEL 7-10; Start 04/19/16 at 19:30 Atorvastatin Calcium (Lipitor) 80 mg HS PO Last administered on 04/25/16 21:12 ; Admin Dose 80 MG; Start 04/19/16 at 21:00 Acetaminophen (Tylenol Tab) 650 mg Q4H PRN PO NON-CARDIAC PAIN LEVEL (1-3) Last administered on 04/26/16 01:14; Admin Dose 650 MG; Start 04/20/16 at 08:30 Morphine Sulfate (morphine) 2 mg Q2H PRN IV FOR NON CARDIAC PAIN (4-10); Start 04/20/16 at 08:30 Promethazine HCl/ Codeine 5 ml 5 ml Q4H PRN PO COUGH Last administered on 22:20; Admin Dose 5 ML; Start 04/22/16 at 18:00 Potassium Chloride/Calcium Chloride/Dextrose/ Sodium Chloride (KCl/Ca Chloride/ D5-1/4ns) 1,030 ml @ 60 mls/hr [id number] IV Last administered on 04/24/16 15:11 ; Admin Dose 60 MLS/HR; Start 04/24/16 at 15:00 Oxycodone/ Acetaminophen (Percocet (5/ 325)) 1 tab Q3H PRN PO PAIN LEVEL 1-5 Last administered on 04/25/16 19:28; Admin Dose 1 TAB; Start 04/24/16 at 13:00 Oxycodone/ Acetaminophen (Percocet (5/ 325)) 2 tab Q3H PRN PO PAIN LEVEL 6-10; Start 04/24/16 at 13:00 Ondansetron HCl (Zofran Inj) 4 mg Q6H PRN IV NAUSEA AND/OR VOMITING; Start at 13:00 Famotidine (Pepcid Iv) 20 mg BID@08,20 IV Last administered on 04/25/16 20:00 ; Admin Dose 20 MG; Start 04/24/16 at 20:00 Aspirin (Aspirin) 325 mg DAILY PO Last administered on 04/25/16 09:00; Admin Dose 325 MG; Start 04/25/16 at 09:00 Insulin Aspart (Novolog Insulin Pen) NOVOLOG *MILD* ALGORI... Q4 SC Last administered on 04/25/16 17:32; Admin Dose 1 UNIT; Start 04/24/16 at 17:00 Amiodarone HCl (Cordarone) 200 mg BID GTB ; Start 04/26/16 at 09:00 Carvedilol (Coreg) 3.125 mg BID GTB ; Start 04/26/16 at 09:00 Docusate Sodium (Colace) 100 mg TID PRN PO CONSTIPATION; Start 04/26/16 at 10: 00; Status FREDV SANDRO BABIN Apr 26, 2016 09:58
[2016-04-26] MEDS ORDERED: FUROSEMIDE 20 MG INJ IV ONE (10:00)
[2016-04-26] MEDS ORDERED: DOCUSATE SODIUM 100 MG CAP PO PRN (10:00)
[2016-04-26] MEDS: ASPIRIN 325 MG TAB PO SCH (10:52)
[2016-04-26] MEDS: AMIODARONE 200 MG TAB GTB SCH ×2 (10:53→21:13)
[2016-04-26] MEDS: FAMOTIDINE 20 MG INJ IV SCH ×2 (10:54→21:20)
--- NOTE | 2016-04-26 15:51 | RADRPT ---
Vent Rate: 110 bpm RR Interval: 0 msec MS Interval: 232 msec QRS Duration: 92 msec QT Interval: 304 msec QTC Interval: 411 msec P-R-T [place]: 54 - 62 - 0 degrees Sinus tachycardia with 1st degree AV block with occasional premature ventricular complexes and fusion complexes Cannot rule out Anterior infarct , age undetermined T wave abnormality, consider inferolateral ischemia Abnormal ECG Electronically Signed By: Real Chang [id number]
--- NOTE | 2016-04-26 15:53 | RADRPT ---
Vent Rate: 104 bpm RR Interval: 0 msec [place] Interval: 198 msec QRS Duration: 94 msec QT Interval: 346 msec QTC Interval: 454 msec P-R-T [place]: 51 - 60 - 0 degrees Sinus tachycardia with frequent premature ventricular complexes Cannot rule out Anterior infarct , age undetermined T wave abnormality, consider inferolateral ischemia Abnormal ECG Electronically Signed By: Real Chang [id number]
--- NOTE | 2016-04-26 15:56 | RADRPT ---
Vent Rate: 102 bpm RR Interval: 0 msec [place] Interval: 184 msec QRS Duration: 92 msec QT Interval: 350 msec QTC Interval: 456 msec P-R-T [place]: 52 - 56 - -89 degrees Sinus tachycardia with occasional premature ventricular complexes Cannot rule out Anterior infarct , age undetermined T wave abnormality, consider inferolateral ischemia Abnormal ECG Electronically Signed By: Real Chang [id number]
--- NOTE | 2016-04-26 16:02 | RADRPT ---
Vent Rate: 91 bpm RR Interval: 0 msec [place] Interval: 168 msec QRS Duration: 92 msec QT Interval: 374 msec QTC Interval: 460 msec P-R-T [place]: 60 - 61 - -42 degrees Sinus rhythm with frequent premature ventricular complexes Anterior infarct , age undetermined T wave abnormality, consider inferolateral ischemia Abnormal ECG Electronically Signed By: Real Chang [id number]
[2016-04-26] MEDS: OXYCODONE/ACETAMINOPHEN (5/325) TAB PO PRN (20:26)
[2016-04-26] MEDS: ATORVASTATIN 80 MG TAB PO SCH (21:08)
[2016-04-27] VITALS (12 sets, daily range): BP systolic 93–121; BP diastolic 60–70; PULSE 63–90; RESP 11–20
[2016-04-27] MEDS: INSULIN ASPART [NOVOLOG] 3 ML PEN SC SCH ×6 (01:00→21:00)
[2016-04-27] MEDS: POTASSIUM CHLORIDE 40 MEQ, CALCIUM CHLORIDE 10% 1 GM in DEXTROSE 5%-0.225% NACL 1,000 ML IV SCH ×4 (01:58→17:09)
[2016-04-27 08:13] LABS: BASOPHILS % 0.1 % (0.0-2.0); EOSINOPHILS # 0.2 10^3/ul (0.0-0.5); EOSINOPHILS % 1.2 % (0.0-7.0); HEMATOCRIT 29.9 % (42.0-52.0); HEMOGLOBIN 10.1 g/dl (14.0-18.0); LYMPHOCYTES # 1.4 10^3/ul (0.8-2.9); LYMPHOCYTES % 10.6 % (15.0-51.0); MEAN CORPUSCULAR HEMOGLOBIN 30.5 pg (29.0-33.0); MEAN CORPUSCULAR HGB CONC 33.8 g/dl (32.0-37.0); MEAN CORPUSCULAR VOLUME 90.3 fl (82.0-101.0); MEAN PLATELET VOLUME 11.9 fl (7.4-10.4); MONOCYTE # 1.2 10^3/ul (0.3-0.9); MONOCYTES % 9.4 % (0.0-11.0); NEUTROPHIL # 10.1 10^3/ul (1.6-7.5); NEUTROPHILS % 78.2 % (39.0-77.0); PLATELET COUNT 125 10^3/UL (140-415); RED BLOOD COUNT 3.31 10^6/ul (4.70-6.10); RED CELL DISTRIBUTION WIDTH 12.7 % (11.5-14.5); WHITE BLOOD COUNT 12.9 10^3/ul (4.8-10.8)
[2016-04-27 08:26] LABS: POTASSIUM 3.9 mmol/L (3.5-5.1)
--- NOTE | 2016-04-27 08:26 | RADRPT ---
PROCEDURE: XR Chest. CLINICAL INDICATION: Removal of chest tube. TECHNIQUE: Single frontal chest x-ray. COMPARISON: 04/26/2016 FINDINGS: The left-sided chest tube and right jugular central venous sheath has been removed. There is no rg dence pneumothorax. . Sternotomy wires are present. There are no alveolar infiltrates, edema, or e ffusions.. Cardiomegaly is again noted.. The osseous structures are intact. IMPRESSION: Removal of left-sided chest tube and right jugular central venous sheath. No evidence of pneumothorax. Cardiomegaly status post sternotomy.. RPTAT: GG .Viral Lares MD, MD Date Time Electronically viewed and signed by .Viral Lares MD, MD on 04/27/2016 08:26 .L/
[2016-04-27 08:29] LABS: CREATININE 0.9 mg/dl (0.61-1.24)
[2016-04-27 08:30] LABS: CALCIUM 8.6 mg/dl (8.4-10.2)
[2016-04-27] MEDS ORDERED: GLUCOSE GEL 15 GRAM TUBE BUCCAL PRN (08:30)
[2016-04-27] MEDS ORDERED: DEXTROSE 50% 50 ML SYRINGE IV PRN ×2 (08:30)
[2016-04-27] MEDS ORDERED: GLUCOSE GEL 15 GRAM TUBE PO PRN ×2 (08:30)
[2016-04-27] MEDS ORDERED: GLUCAGON 1 MG INJ IM PRN (08:30)
[2016-04-27] MEDS: ASPIRIN 325 MG TAB PO SCH (09:14)
[2016-04-27] MEDS: FAMOTIDINE 20 MG INJ IV SCH ×2 (09:14→21:09)
[2016-04-27] MEDS: AMIODARONE 200 MG TAB GTB SCH ×2 (09:15→21:00)
[2016-04-27 09:41] LABS: MAGNESIUM 2.4 mg/dl (1.7-2.5); PHOSPHORUS 2.6 mg/dl (2.5-4.9)
[2016-04-27] MEDS ORDERED: LISINOPRIL 5 MG TAB PO SCH (11:00)
--- NOTE | 2016-04-27 11:05 | PN ---
Date/Time of Note Date/Time of Note DATE: 04/27/16 TIME: 11:03 Assessment/Plan VTE Prophylaxis VTE Prophylaxis Intervention: anti-embolic stocking Lines/Catheters [facility] [place] Urinary Cath still in place: No Assessment/Plan Chief Complaint/Hosp Course 1. Non-ST elevation myocardial infarction with left heart catheterization revealing 3-vessel coronary artery disease. Status post coronary artery bypass grafting x4 on 04/24/2016. Continue postoperative management as per cardiac surgery. The patient had a coronary artery bypass grafting x4, left internal mammary artery to left anterior descending and saphenous vein graft to proximal posterior descending and saphenous vein graft to diagonal artery 1, sequenced to obtuse marginal artery. 2. Cardiomyopathy with ejection fraction of 25% to 30%. Most probably ischemic cardiomyopathy. Continue to optimize cardiac medications. 3. Dyslipidemia. Continue statins. 4. Pre-diabetes. Hemoglobin A1c 6.0. Continue optimal blood sugar control. 5. Systemic inflammatory response syndrome with leukocytosis, sinus tachycardia , and a febrile illness. Most probably reactive/stress related. Monitor. 6. Fluid, electrolytes, and nutrition. Advance diet as tolerated to a regular consistency diet. 7. Deep vein thrombosis prophylaxis. Continue aspirin. Continue antiembolic stockings. 8. Gastrointestinal prophylaxis. Continue proton pump inhibitors. 9. Plan. Continue postoperative care as per cardiac surgery. Continue physical therapy. Add routine stool softeners and PRN laxatives The case was discussed with Dr. Sanchez. Problems: Subjective 24 Hr Interval Summary Free Text/Dictation Complains of chest pain. Has not had any bowel movements yet since the surgery. Exam/Review of Systems Vital Signs Vitals Vital Signs Date Time Temp Pulse Resp B/P Pulse Ox O2 Delivery O2 Flow Rate FiO2 04/27/16 08:16 87 04/27/16 07:34 99.2 20 112/62 96 04/27/16 04:00 Room Air 04/26/16 20:00 2.0 04/24/16 16:26 30 Intake and Output 04/26/16 04/26/16 04/27/16 15:00 23:00 07:00 Intake Total 590 ml 700 ml 640 ml Output Total 1200 ml 300 ml Balance -610 ml 400 ml 640 ml Exam GENERAL: This is a well-built, well-nourished male lying in bed in mild distress secondary to underlying pain. HEENT: Head normocephalic and atraumatic. Eyes: Anicteric sclerae. Conjunctivae clear. ENT: Nasal septum is midline. Oral mucosa is dry. NECK: Supple. No JVD noticed. RESPIRATORY: Bilaterally diminished breath sounds. No adventitious breath sounds. No use of accessory muscles of respiration. Chest tubes have been removed. CARDIAC: Regular rate and rhythm. Dressing over sternotomy clean, dry, and intact. ABDOMEN: Soft, nontender, and nondistended. Bowel sounds hypoactive in all 4 quadrants. GENITOURINARY: Deferred. EXTREMITIES: Left lower extremity incision over the vein grafting site healing well. Right lower extremity, no edema. Peripheral pulses are palpable. NEUROLOGIC: The patient is awake, alert, and oriented. Cranial nerves are grossly intact. Results Result Diagram: 04/27/16 0651 04/27/16 0651 Results 24 hrs Laboratory Tests Test 04/26/16 11:08 04/26/16 12:57 04/26/16 17:38 04/26/16 20:38 Bedside Glucose 163 140 148 118 Test 04/27/16 02:52 04/27/16 05:25 04/27/16 06:51 04/27/16 09:13 Bedside Glucose 116 113 179 Anion Gap 15 Basophils # 0.0 Basophils % 0.1 Blood Urea Nitrogen 18 Calcium Level 8.6 Carbon Dioxide Level 27 Chloride Level 98 Creatinine 0.90 Eosinophils # 0.2 Eosinophils % 1.2 Glucose Level 112 Hematocrit 29.9 L Hemoglobin 10.1 L Lymphocytes # 1.4 Lymphocytes % 10.6 L Magnesium Level 2.4 Mean Corpuscular Hemoglobin 30.5 Mean Corpuscular Hemoglobin Concent 33.8 Mean Corpuscular Volume 90.3 Mean Platelet Volume 11.9 #H Monocytes # 1.2 H Monocytes % 9.4 Neutrophils # 10.1 H Neutrophils % 78.2 H Nucleated Red Blood Cells # 0.0 Nucleated Red Blood Cells % 0.0 Phosphorus Level 2.6 Platelet Count 125 L Potassium Level 3.9 Red Blood Count 3.31 L Red Cell Distribution Width 12.7 Sodium Level 136 White Blood Count 12.9 H Medications Medications Current Medications Zolpidem Tartrate (Ambien) 5 mg QHS PRN PO SLEEP Last administered on t 21:09; Admin Dose 5 MG; Start 04/19/16 at 19:30 Nitroglycerin (Nitroglycerin (Sl Tab) 0.4 Mg) 1 tab Q5M PRN SL CHEST PAIN; Start 04/19/16 at 19:30 Morphine Sulfate (morphine) 4 mg Q2H PRN IV PAIN LEVEL 7-10; Start 04/19/16 at 19:30 Atorvastatin Calcium (Lipitor) 80 mg HS PO Last administered on 04/26/16 21:08 ; Admin Dose 80 MG; Start 04/19/16 at 21:00 Acetaminophen (Tylenol Tab) 650 mg Q4H PRN PO NON-CARDIAC PAIN LEVEL (1-3) Last administered on 04/26/16 18:09; Admin Dose 650 MG; Start 04/20/16 at 08:30 Morphine Sulfate (morphine) 2 mg Q2H PRN IV FOR NON CARDIAC PAIN (4-10); Start 04/20/16 at 08:30 Promethazine HCl/ Codeine 5 ml 5 ml Q4H PRN PO COUGH Last administered on 22:20; Admin Dose 5 ML; Start 04/22/16 at 18:00 Potassium Chloride/Calcium Chloride/Dextrose/ Sodium Chloride (KCl/Ca Chloride/ D5-1/4ns) 1,030 ml @ 60 mls/hr [id number] IV Last administered on 04/27/16 03:22 ; Admin Dose 60 MLS/HR; Start 04/24/16 at 15:00 Oxycodone/ Acetaminophen (Percocet (5/ 325)) 1 tab Q3H PRN PO PAIN LEVEL 1-5 Last administered on 04/25/16 19:28; Admin Dose 1 TAB; Start 04/24/16 at 13:00 Oxycodone/ Acetaminophen (Percocet (5/ 325)) 2 tab Q3H PRN PO PAIN LEVEL 6-10 Last administered on 04/26/16 20:26; Admin Dose 2 TAB; Start 04/24/16 at 13:00 Ondansetron HCl (Zofran Inj) 4 mg Q6H PRN IV NAUSEA AND/OR VOMITING; Start at 13:00 Famotidine (Pepcid Iv) 20 mg BID@08,20 IV Last administered on 04/27/16 09:14 ; Admin Dose 20 MG; Start 04/24/16 at 20:00 Aspirin (Aspirin) 325 mg DAILY PO Last administered on 04/27/16 09:14; Admin Dose 325 MG; Start 04/25/16 at 09:00 Insulin Aspart (Novolog Insulin Pen) NOVOLOG *MILD* ALGORI... Q4 SC Last administered on 04/27/16 09:00; Admin Dose 1 UNIT; Start 04/24/16 at 17:00 Amiodarone HCl (Cordarone) 200 mg BID GTB Last administered on 04/27/16 09:15 ; Admin Dose 200 MG; Start 04/26/16 at 09:00 Carvedilol (Coreg) 3.125 mg BID GTB Last administered on 04/27/16 09:15; Admin Dose 3.125 MG; Start 04/26/16 at 09:00 Docusate Sodium (Colace) 100 mg TID PRN PO CONSTIPATION Last administered on 09:22; Admin Dose 100 MG; Start 04/26/16 at 10:00 Miscellaneous Information 1 ea NOTE XX ; Start 04/27/16 at 08:30 Glucose (Glutose) 15 gm Q15M PRN PO DECREASED GLUCOSE; Start 04/27/16 at 08:30 Glucose (Glutose) 22.5 gm Q15M PRN PO DECREASED GLUCOSE; Start 04/27/16 at 08: 30 Dextrose (D50w Syringe) 25 ml Q15M PRN IV DECREASED GLUCOSE; Start 04/27/16 at 08:30 Dextrose (D50w Syringe) 50 ml Q15M PRN IV DECREASED GLUCOSE; Start 04/27/16 at 08:30 Glucagon (Glucagen) 1 mg Q15M PRN IM DECREASED GLUCOSE; Start 04/27/16 at 08:30 Glucose (Glutose) 15 gm Q15M PRN BUCCAL DECREASED GLUCOSE; Start 04/27/16 at 08 :30 Lisinopril (Zestril) 2.5 mg DAILY PO ; Start 04/27/16 at 11:00 GOPI BALL NP Apr 27, 2016 11:05
[2016-04-27] MEDS ORDERED: BISACODYL (EC) 5 MG TAB PO PRN (11:30)
[2016-04-27] MEDS ORDERED: FUROSEMIDE 40 MG INJ IV ONE (11:30)
[2016-04-27] MEDS: POLYETHYLENE GLYCOL 17 GM PACKET PO SCH ×2 (12:51→21:10)
[2016-04-27] MEDS: OXYCODONE/ACETAMINOPHEN (5/325) TAB PO PRN ×2 (13:01→21:22)
--- NOTE | 2016-04-27 18:07 | PN ---
Date/Time of Note Date/Time of Note DATE: 04/27/16 TIME: 18:06 Assessment/Plan Lines/Catheters IV Catheter Type (from Nrs): Peripheral IV Shine in Place (from Nrs): No Assessment/Plan Assessment/Plan doing well, fewer pvcs tolerating coreg amio short term increase activity cxr LLL atelectasis Exam/Review of Systems Vital Signs Vitals Vital Signs Date Time Temp Pulse Resp B/P Pulse Ox O2 Delivery O2 Flow Rate FiO2 04/27/16 16:10 90 04/27/16 15:00 98.9 20 121/70 99 04/27/16 04:00 Room Air 04/26/16 20:00 2.0 04/24/16 16:26 30 Intake and Output 04/26/16 04/26/16 04/27/16 15:00 23:00 07:00 Intake Total 590 ml 700 ml 640 ml Output Total 1200 ml 300 ml Balance -610 ml 400 ml 640 ml Results Result Diagram: 04/27/16 0651 04/27/16 0651 PAWEL WOODS MD Apr 27, 2016 18:07
[2016-04-27] MEDS: ATORVASTATIN 80 MG TAB PO SCH (21:10)
[2016-04-28] VITALS (13 sets, daily range): BP systolic 92–121; BP diastolic 52–75; PULSE 82–85; RESP 18–20
[2016-04-28] MEDS: INSULIN ASPART [NOVOLOG] 3 ML PEN SC SCH ×6 (01:00→21:00)
[2016-04-28] MEDS: OXYCODONE/ACETAMINOPHEN (5/325) TAB PO PRN ×2 (06:01→12:54)
--- NOTE | 2016-04-28 06:09 | PN ---
Date/Time of Note Date/Time of Note DATE: 04/28/16 TIME: 06:08 Assessment/Plan Lines/Catheters IV Catheter Type (from Nrs): Peripheral IV Shine in Place (from Nrs): No Assessment/Plan Assessment/Plan stop ivf remove pacing wires ok to d/c home and follow up in one week Exam/Review of Systems Vital Signs Vitals Vital Signs Date Time Temp Pulse Resp B/P Pulse Ox O2 Delivery O2 Flow Rate FiO2 04/28/16 04:34 84 04/28/16 04:10 98.2 18 107/64 94 04/27/16 04:00 Room Air 04/26/16 20:00 2.0 04/24/16 16:26 30 Intake and Output 04/27/16 04/27/16 04/28/16 15:00 23:00 07:00 Intake Total 800 ml 1520 ml Output Total 1000 ml Balance 800 ml 520 ml Results Result Diagram: 04/27/16 0651 04/27/16 0651 PAWEL WOODS MD Apr 28, 2016 06:09
[2016-04-28 08:07] LABS: ADD SCAN DIFF NO
[2016-04-28 08:13] LABS: BASOPHILS % 0.2 % (0.0-2.0); EOSINOPHILS # 0.2 10^3/ul (0.0-0.5); HEMATOCRIT 29.7 % (42.0-52.0); HEMOGLOBIN 10.1 g/dl (14.0-18.0); LYMPHOCYTES # 1.4 10^3/ul (0.8-2.9); MEAN CORPUSCULAR HEMOGLOBIN 30.1 pg (29.0-33.0); MEAN CORPUSCULAR VOLUME 88.4 fl (82.0-101.0); MEAN PLATELET VOLUME 11.4 fl (7.4-10.4); MONOCYTE # 1.2 10^3/ul (0.3-0.9); NEUTROPHIL # 7.8 10^3/ul (1.6-7.5); NEUTROPHILS % 73.1 % (39.0-77.0); PLATELET COUNT 153 10^3/UL (140-415); RED BLOOD COUNT 3.36 10^6/ul (4.70-6.10); RED CELL DISTRIBUTION WIDTH 12.4 % (11.5-14.5); WHITE BLOOD COUNT 10.7 10^3/ul (4.8-10.8)
[2016-04-28 08:23] LABS: POTASSIUM 4.2 mmol/L (3.5-5.1)
[2016-04-28 08:26] LABS: CALCIUM 9.1 mg/dl (8.4-10.2); CREATININE 0.95 mg/dl (0.61-1.24)
--- NOTE | 2016-04-28 08:26 | RADRPT ---
PROCEDURE: XR Chest. CLINICAL INDICATION: Follow-up chest tube removal. TECHNIQUE: Single AP portable chest COMPARISON: 04/25/2016 FINDINGS: The cardiac silhouette is enlarged with sternotomy wires in place. The left chest tube has been rem troy. The lungs are clear without pleural effusion or focal consolidation. No pneumothorax. The oss eous structures and soft tissues are unremarkable. IMPRESSION: 1. No evidence for active cardiopulmonary disease. 2. The left chest tube has been removed. No pneumothorax. 3. Cardiomegaly. Sternotomy wires in place. RPTAT:AAJJ Physician Moose Date Time Electronically viewed and signed by Physician Moose on 04/28/2016 08:26 RADHA/
[2016-04-28 08:29] LABS: MAGNESIUM 1.9 mg/dl (1.7-2.5)
[2016-04-28] MEDS: FAMOTIDINE 20 MG INJ IV SCH ×2 (08:55→20:06)
[2016-04-28] MEDS: ASPIRIN 325 MG TAB PO SCH (08:55)
[2016-04-28] MEDS: POLYETHYLENE GLYCOL 17 GM PACKET PO SCH ×2 (08:57→22:06)
[2016-04-28] MEDS: AMIODARONE 200 MG TAB GTB SCH ×2 (09:00→22:05)
--- NOTE | 2016-04-28 10:25 | CONS ---
Date/Time of Note Date/Time of Note DATE: 04/28/16 TIME: 10:20 Assessment/Plan Assessment/Plan Chief Complaint/Hosp Course CAD s/p CAB04/24/2016 (GARNER-LAD, SVG-PDA, SVG-D1-OM). Off pressors. Chest tube removed. Doing well NSTEMI: Trop up to 15 and not trended further. Cath with significant CAD (mid LAD 99% with reduced flow, prox Diag 90%, mid RCA 100% ESTIMATOR AND DRAFTER with collaterals). Acute systolic heart failure: EF 25-30%. CXR clear but JVP still elevated and pt symptomatic. Also with hyponatremia. SVT: short runs of ?AT vs aflutter/fib which is common post-op. Was placed on amio drip, now PO by cardiac surgery. Likely will not need it longterm -continue ASA 325mg, lipitor -coreg3.125mg, uptitrate as tolerated -increase to lisinopril 5mg, uptitrate as tolerated -another dose of lasix 40mg IV (likely should go home with lasix 20mg daily and potassium) -ok for amio, likely will not need it longterm -would keep one more day or if he is discharged today should follow-up next week Problems: Consultation Date/Type/Reason Admit Date/Time Apr 19, 2016 at 18:03 Initial Consult Date 04/20/16 Type of Consultation: Cardiology 24 HR Interval Summary Free Text/Dictation No o/n events. Tired with walking. Mild SOB. Chest pain only with coughing. No arrhythmias. Exam/Review of Systems Vital Signs Vitals Vital Signs Date Time Temp Pulse Resp B/P Pulse Ox O2 Delivery O2 Flow Rate FiO2 04/28/16 08:16 83 04/28/16 08:13 97.9 20 105/66 98 04/27/16 04:00 Room Air 04/26/16 20:00 2.0 04/24/16 16:26 30 Intake and Output 04/27/16 04/27/16 04/28/16 15:00 23:00 07:00 Intake Total 800 ml 1520 ml Output Total 1000 ml Balance 800 ml 520 ml Exam Constitutional: alert, oriented Psych: no complaints Head: normocephalic Neck: jvd (9cm) Respiratory: diminished breath sounds, No clear to auscultation Cardiovascular: edema (trace), regular rate and rhythm, No systolic murmur Neurological: nl mental status, nl speech Results Result Diagram: 04/28/16 0725 04/28/16 0740 Results 24 hrs Laboratory Tests Test 04/27/16 12:19 04/27/16 16:41 04/27/16 21:05 04/28/16 01:57 Bedside Glucose 134 124 110 138 Test 04/28/16 05:48 04/28/16 07:25 04/28/16 07:31 04/28/16 07:40 Bedside Glucose 105 120 Basophils # 0.0 Basophils % 0.2 Eosinophils # 0.2 Eosinophils % 2.0 Hematocrit 29.7 L Hemoglobin 10.1 L Lymphocytes # 1.4 Lymphocytes % 13.0 L Magnesium Level 1.9 Mean Corpuscular Hemoglobin 30.1 Mean Corpuscular Hemoglobin Concent 34.0 Mean Corpuscular Volume 88.4 Mean Platelet Volume 11.4 H Monocytes # 1.2 H Monocytes % 11.0 Neutrophils # 7.8 H Neutrophils % 73.1 Nucleated Red Blood Cells # 0.0 Nucleated Red Blood Cells % 0.0 Phosphorus Level 4.0 Platelet Count 153 # Red Blood Count 3.36 L Red Cell Distribution Width 12.4 White Blood Count 10.7 Anion Gap 15 Blood Urea Nitrogen 18 Calcium Level 9.1 Carbon Dioxide Level 24 Chloride Level 98 Creatinine 0.95 Glucose Level 110 Potassium Level 4.2 Sodium Level 133 L Medications Medications Current Medications Zolpidem Tartrate (Ambien) 5 mg QHS PRN PO SLEEP Last administered on 21:09; Admin Dose 5 MG; Start 04/19/16 at 19:30 Nitroglycerin (Nitroglycerin (Sl Tab) 0.4 Mg) 1 tab Q5M PRN SL CHEST PAIN; Start 04/19/16 at 19:30 Morphine Sulfate (morphine) 4 mg Q2H PRN IV PAIN LEVEL 7-10; Start 04/19/16 at 19:30 Atorvastatin Calcium (Lipitor) 80 mg HS PO Last administered on 04/27/16 21:10 ; Admin Dose 80 MG; Start 04/19/16 at 21:00 Acetaminophen (Tylenol Tab) 650 mg Q4H PRN PO NON-CARDIAC PAIN LEVEL (1-3) Last administered on 04/26/16 18:09; Admin Dose 650 MG; Start 04/20/16 at 08:30 Morphine Sulfate (morphine) 2 mg Q2H PRN IV FOR NON CARDIAC PAIN (4-10); Start 04/20/16 at 08:30 Promethazine HCl/ Codeine (Phenergan/ Codeine) 5 ml Q4H PRN PO COUGH Last administered on 04/25/16 22:20; Admin Dose 5 ML; Start 04/22/16 at 18:00 Oxycodone/ Acetaminophen (Percocet (5/ 325)) 1 tab Q3H PRN PO PAIN LEVEL 1-5 Last administered on 04/27/16 13:01; Admin Dose 1 TAB; Start 04/24/16 at 13:00 Oxycodone/ Acetaminophen (Percocet (5/ 325)) 2 tab Q3H PRN PO PAIN LEVEL 6-10 Last administered on 04/28/16 06:01; Admin Dose 2 TAB; Start 04/24/16 at 13:00 Ondansetron HCl (Zofran Inj) 4 mg Q6H PRN IV NAUSEA AND/OR VOMITING; Start at 13:00 Famotidine (Pepcid Iv) 20 mg BID@08,20 IV Last administered on 04/28/16 08:55 ; Admin Dose 20 MG; Start 04/24/16 at 20:00 Aspirin (Aspirin) 325 mg DAILY PO Last administered on 04/28/16 08:55; Admin Dose 325 MG; Start 04/25/16 at 09:00 Insulin Aspart (Novolog Insulin Pen) NOVOLOG *MILD* ALGORI... Q4 SC Last administered on 04/27/16 09:00; Admin Dose 1 UNIT; Start 04/24/16 at 17:00 Amiodarone HCl (Cordarone) 200 mg BID GTB Last administered on 04/27/16 09:15 ; Admin Dose 200 MG; Start 04/26/16 at 09:00 Carvedilol (Coreg) 3.125 mg BID GTB Last administered on 04/28/16 08:57; Admin Dose 3.125 MG; Start 04/26/16 at 09:00 Docusate Sodium (Colace) 100 mg TID PRN PO CONSTIPATION Last administered on 09:22; Admin Dose 100 MG; Start 04/26/16 at 10:00 Miscellaneous Information 1 ea NOTE XX ; Start 04/27/16 at 08:30 Glucose (Glutose) 15 gm Q15M PRN PO DECREASED GLUCOSE; Start 04/27/16 at 08:30 Glucose (Glutose) 22.5 gm Q15M PRN PO DECREASED GLUCOSE; Start 04/27/16 at 08: 30 Dextrose (D50w Syringe) 25 ml Q15M PRN IV DECREASED GLUCOSE; Start 04/27/16 at 08:30 Dextrose (D50w Syringe) 50 ml Q15M PRN IV DECREASED GLUCOSE; Start 04/27/16 at 08:30 Glucagon (Glucagen) 1 mg Q15M PRN IM DECREASED GLUCOSE; Start 04/27/16 at 08:30 Glucose (Glutose) 15 gm Q15M PRN BUCCAL DECREASED GLUCOSE; Start 04/27/16 at 08 :30 Bisacodyl (Dulcolax) 10 mg DAILY PRN PO CONSTIPATION; Start 04/27/16 at 11:30 Polyethylene Glycol (Miralax) 17 gm BID PO Last administered on 04/27/16t 21:10 ; Admin Dose 17 GM; Start 04/27/16 at 11:30 Lisinopril (Zestril) 5 mg DAILY PO ; Start 04/29/16 at 09:00 SANDRO BABIN Apr 28, 2016 10:25
[2016-04-28] MEDS ORDERED: FUROSEMIDE 40 MG INJ IV ONE (10:30)
--- NOTE | 2016-04-28 17:46 | PN ---
Date/Time of Note Date/Time of Note DATE: 04/28/16 TIME: 17:43 Assessment/Plan VTE Prophylaxis VTE Prophylaxis Intervention: anti-embolic stocking Lines/Catheters IV Catheter Type (from [facility]): Saline Lock Urinary Cath still in place: No Assessment/Plan Chief Complaint/Hosp Course 1. Non-ST elevation myocardial infarction with left heart catheterization revealing 3-vessel coronary artery disease. Status post coronary artery bypass grafting x4 on 04/24/2016. Continue postoperative management as per cardiac surgery. The patient had a coronary artery bypass grafting x4, left internal mammary artery to left anterior descending and saphenous vein graft to proximal posterior descending and saphenous vein graft to diagonal artery 1, sequenced to obtuse marginal artery. 2. Cardiomyopathy with ejection fraction of 25% to 30%. Most probably ischemic cardiomyopathy. Continue to optimize cardiac medications. 3. Dyslipidemia. Continue statins. 4. Pre-diabetes. Hemoglobin A1c 6.0. Continue optimal blood sugar control. 5. S/P systemic inflammatory response syndrome with leukocytosis, sinus tachycardia, and a febrile illness. Most probably reactive/stress related. Monitor. 6. Fluid, electrolytes, and nutrition. Advance diet as tolerated to a regular consistency diet. 7. Deep vein thrombosis prophylaxis. Continue aspirin. Continue antiembolic stockings. 8. Gastrointestinal prophylaxis. Continue proton pump inhibitors. 9. Plan. Continue postoperative care as per cardiac surgery. Continue physical therapy. To be discharged home possibly by tomorrow. The case was discussed with Dr. Sanchez. Problems: Subjective 24 Hr Interval Summary Free Text/Dictation Incisional pain well controlled. Exam/Review of Systems Vital Signs Vitals Vital Signs Date Time Temp Pulse Resp B/P Pulse Ox O2 Delivery O2 Flow Rate FiO2 04/28/16 16:26 98.2 79 20 92/61 98 04/27/16 04:00 Room Air 04/26/16 20:00 2.0 04/24/16 16:26 30 Intake and Output 04/27/16 04/27/16 04/28/16 15:00 23:00 07:00 Intake Total 800 ml 1520 ml Output Total 1000 ml Balance 800 ml 520 ml Exam GENERAL: This is a well-built, well-nourished male lying in bed in mild distress secondary to underlying pain. HEENT: Head normocephalic and atraumatic. Eyes: Anicteric sclerae. Conjunctivae clear. ENT: Nasal septum is midline. Oral mucosa is dry. NECK: Supple. No JVD noticed. RESPIRATORY: Bilaterally diminished breath sounds. No adventitious breath sounds. No use of accessory muscles of respiration. Chest tubes have been removed. CARDIAC: Regular rate and rhythm. Dressing over sternotomy clean, dry, and intact. ABDOMEN: Soft, nontender, and nondistended. Bowel sounds hypoactive in all 4 quadrants. GENITOURINARY: Deferred. EXTREMITIES: Left lower extremity incision over the vein grafting site healing well. Right lower extremity, no edema. Peripheral pulses are palpable. NEUROLOGIC: The patient is awake, alert, and oriented. Cranial nerves are grossly intact. Results Result Diagram: 04/28/16 0725 04/28/16 0740 Results 24 hrs Laboratory Tests Test 04/27/16 21:05 04/28/16 01:57 04/28/16 05:48 04/28/16 07:25 Bedside Glucose 110 138 105 Basophils # 0.0 Basophils % 0.2 Eosinophils # 0.2 Eosinophils % 2.0 Hematocrit 29.7 L Hemoglobin 10.1 L Lymphocytes # 1.4 Lymphocytes % 13.0 L Magnesium Level 1.9 Mean Corpuscular Hemoglobin 30.1 Mean Corpuscular Hemoglobin Concent 34.0 Mean Corpuscular Volume 88.4 Mean Platelet Volume 11.4 H Monocytes # 1.2 H Monocytes % 11.0 Neutrophils # 7.8 H Neutrophils % 73.1 Nucleated Red Blood Cells # 0.0 Nucleated Red Blood Cells % 0.0 Phosphorus Level 4.0 Platelet Count 153 # Red Blood Count 3.36 L Red Cell Distribution Width 12.4 White Blood Count 10.7 Test 04/28/16 07:31 04/28/16 07:40 04/28/16 11:58 04/28/16 17:08 Bedside Glucose 120 122 131 Anion Gap 15 Blood Urea Nitrogen 18 Calcium Level 9.1 Carbon Dioxide Level 24 Chloride Level 98 Creatinine 0.95 Glucose Level 110 Potassium Level 4.2 Sodium Level 133 L Medications Medications Current Medications Zolpidem Tartrate (Ambien) 5 mg QHS PRN PO SLEEP Last administered on t 21:09; Admin Dose 5 MG; Start 04/19/16 at 19:30 Nitroglycerin (Nitroglycerin (Sl Tab) 0.4 Mg) 1 tab Q5M PRN SL CHEST PAIN; Start 04/19/16 at 19:30 Morphine Sulfate (morphine) 4 mg Q2H PRN IV PAIN LEVEL 7-10; Start 04/19/16 at 19:30 Atorvastatin Calcium (Lipitor) 80 mg HS PO Last administered on 04/27/16 21:10 ; Admin Dose 80 MG; Start 04/19/16 at 21:00 Acetaminophen (Tylenol Tab) 650 mg Q4H PRN PO NON-CARDIAC PAIN LEVEL (1-3) Last administered on 04/26/16 18:09; Admin Dose 650 MG; Start 04/20/16 at 08:30 Morphine Sulfate (morphine) 2 mg Q2H PRN IV FOR NON CARDIAC PAIN (4-10); Start 04/20/16 at 08:30 Promethazine HCl/ Codeine (Phenergan/ Codeine) 5 ml Q4H PRN PO COUGH Last administered on 04/25/16 22:20; Admin Dose 5 ML; Start 04/22/16 at 18:00 Oxycodone/ Acetaminophen (Percocet (5/ 325)) 1 tab Q3H PRN PO PAIN LEVEL 1-5 Last administered on 04/28/16 12:54; Admin Dose 1 TAB; Start 04/24/16 at 13:00 Oxycodone/ Acetaminophen (Percocet (5/ 325)) 2 tab Q3H PRN PO PAIN LEVEL 6-10 Last administered on 04/28/16 06:01; Admin Dose 2 TAB; Start 04/24/16 at 13:00 Ondansetron HCl (Zofran Inj) 4 mg Q6H PRN IV NAUSEA AND/OR VOMITING; Start at 13:00 Famotidine (Pepcid Iv) 20 mg BID@08,20 IV Last administered on 04/28/16 08:55 ; Admin Dose 20 MG; Start 04/24/16 at 20:00 Aspirin (Aspirin) 325 mg DAILY PO Last administered on 04/28/16 08:55; Admin Dose 325 MG; Start 04/25/16 at 09:00 Insulin Aspart (Novolog Insulin Pen) NOVOLOG *MILD* ALGORI... Q4 SC Last administered on 04/27/16 09:00; Admin Dose 1 UNIT; Start 04/24/16 at 17:00 Amiodarone HCl (Cordarone) 200 mg BID GTB Last administered on 04/27/16 09:15 ; Admin Dose 200 MG; Start 04/26/16 at 09:00 Carvedilol (Coreg) 3.125 mg BID GTB Last administered on 04/28/16 08:57; Admin Dose 3.125 MG; Start 04/26/16 at 09:00 Docusate Sodium (Colace) 100 mg TID PRN PO CONSTIPATION Last administered on 09:22; Admin Dose 100 MG; Start 04/26/16 at 10:00 Miscellaneous Information 1 ea NOTE XX ; Start 04/27/16 at 08:30 Glucose (Glutose) 15 gm Q15M PRN PO DECREASED GLUCOSE; Start 04/27/16 at 08:30 Glucose (Glutose) 22.5 gm Q15M PRN PO DECREASED GLUCOSE; Start 04/27/16 at 08: 30 Dextrose (D50w Syringe) 25 ml Q15M PRN IV DECREASED GLUCOSE; Start 04/27/16 at 08:30 Dextrose (D50w Syringe) 50 ml Q15M PRN IV DECREASED GLUCOSE; Start 04/27/16 at 08:30 Glucagon (Glucagen) 1 mg Q15M PRN IM DECREASED GLUCOSE; Start 04/27/16 at 08:30 Glucose (Glutose) 15 gm Q15M PRN BUCCAL DECREASED GLUCOSE; Start 04/27/16 at 08 :30 Bisacodyl (Dulcolax) 10 mg DAILY PRN PO CONSTIPATION; Start 04/27/16 at 11:30 Polyethylene Glycol (Miralax) 17 gm BID PO Last administered on 04/27/16 21:10 ; Admin Dose 17 GM; Start 04/27/16 at 11:30 Lisinopril (Zestril) 5 mg DAILY PO ; Start 04/29/16 at 09:00 GOPI BALL NP Apr 28, 2016 17:46
[2016-04-28] MEDS: ACETAMINOPHEN 325 MG TAB PO PRN (20:04)
[2016-04-28] MEDS: morphine 2 MG INJ IV PRN (21:28)
[2016-04-28] MEDS: ATORVASTATIN 80 MG TAB PO SCH (22:04)
[2016-04-28] MEDS: ZOLPIDEM 5 MG TAB PO PRN (22:29)
[2016-04-29] VITALS (9 sets, daily range): BP systolic 104–129; BP diastolic 63–76; PULSE 79–89; RESP 15–17
[2016-04-29] MEDS: INSULIN ASPART [NOVOLOG] 3 ML PEN SC SCH ×4 (01:00→12:20)
[2016-04-29] MEDS: morphine 2 MG INJ IV PRN ×3 (01:53→08:56)
--- NOTE | 2016-04-29 07:20 | PN ---
Date/Time of Note Date/Time of Note DATE: 04/29/16 TIME: 07:19 Assessment/Plan Lines/Catheters IV C[facility]ter Type (from [facility] Saline Lock Shine in Place (from [facility] No Assessment/Plan Assessment/Plan labs ok awaiting discharge Exam/Review of Systems Vital Signs Vitals Vital Signs Date Time Temp Pulse Resp B/P Pulse Ox O2 Delivery O2 Flow Rate FiO2 04/29/16 04:04 80 04/29/16 00:25 97.9 16 129/76 99 Room Air 04/26/16 20:00 2.0 Intake and Output 04/28/16 04/28/16 04/29/16 15:00 23:00 07:00 Intake Total 720 ml Output Total 1000 ml Balance -280 ml Results Result Diagram: 04/28/16 0725 04/28/16 0740 PAWEL WOODS MD Apr 29, 2016 07:20
[2016-04-29 07:48] LABS: ADD SCAN DIFF NO
[2016-04-29 08:06] LABS: POTASSIUM 3.9 mmol/L (3.5-5.1)
[2016-04-29 08:09] LABS: CREATININE 0.98 mg/dl (0.61-1.24)
[2016-04-29 08:10] LABS: CALCIUM 8.9 mg/dl (8.4-10.2)
[2016-04-29 08:14] LABS: MAGNESIUM 2.1 mg/dl (1.7-2.5); PHOSPHORUS 4.1 mg/dl (2.5-4.9)
[2016-04-29] MEDS: FAMOTIDINE 20 MG INJ IV SCH (08:52)
[2016-04-29] MEDS: ASPIRIN 325 MG TAB PO SCH (08:54)
[2016-04-29] MEDS: AMIODARONE 200 MG TAB GTB SCH (08:55)
[2016-04-29] MEDS: POLYETHYLENE GLYCOL 17 GM PACKET PO SCH (09:00)
[2016-04-29] MEDS ORDERED: LISINOPRIL 5 MG TAB PO SCH (09:00)
[2016-04-29 09:13] LABS: BASOPHILS % 0.2 % (0.0-2.0); EOSINOPHILS # 0.3 10^3/ul (0.0-0.5); EOSINOPHILS % 3.3 % (0.0-7.0); HEMATOCRIT 31.1 % (42.0-52.0); HEMOGLOBIN 10.4 g/dl (14.0-18.0); LYMPHOCYTES # 1.1 10^3/ul (0.8-2.9); LYMPHOCYTES % 13.7 % (15.0-51.0); MEAN CORPUSCULAR HEMOGLOBIN 30.1 pg (29.0-33.0); MEAN CORPUSCULAR HGB CONC 33.4 g/dl (32.0-37.0); MEAN CORPUSCULAR VOLUME 90.1 fl (82.0-101.0); MEAN PLATELET VOLUME 11.3 fl (7.4-10.4); MONOCYTE # 0.9 10^3/ul (0.3-0.9); MONOCYTES % 10.8 % (0.0-11.0); NEUTROPHIL # 5.8 10^3/ul (1.6-7.5); NEUTROPHILS % 70.5 % (39.0-77.0); PLATELET COUNT 229 10^3/UL (140-415); RED BLOOD COUNT 3.45 10^6/ul (4.70-6.10); RED CELL DISTRIBUTION WIDTH 12.7 % (11.5-14.5); WHITE BLOOD COUNT 8.2 10^3/ul (4.8-10.8)
--- NOTE | 2016-04-29 09:38 | RADRPT ---
PROCEDURE: XR Chest. CLINICAL INDICATION: Shortness of breath. TECHNIQUE: A single portable view of the chest was obtained. COMPARISON: 04/28/2016 FINDINGS: A prior median sternotomy is again seen. The aorta is tortuous and atherosclerotic. The cardiomedi astinal silhouette is otherwise mildly enlarged and is stable.. The lungs and pleural spaces are cl ear. The soft tissues and osseous structures demonstrate benign age related senescent changes. IMPRESSION: Stable mild cardiomegaly. RPTAT: HPNM Physician Víctor Date Time Electronically viewed and signed by Juan Ramon Garibay Physician on 04/29/2016 09:37 /
--- NOTE | 2016-04-29 11:40 | PN ---
Date/Time of Note Date/Time of Note DATE: 04/29/16 TIME: 11:36 Assessment/Plan VTE Prophylaxis VTE Prophylaxis Intervention: anti-embolic stocking Lines/Catheters [facility] Saline Lock Urinary Cath still in place: No Assessment/Plan Assessment/Plan CAD s/p CAB04/24/2016 (GARNER-LAD, SVG-PDA, SVG-D1-OM). Doing well NSTEMI: Acute systolic heart failure: EF 25-30%. SVT: short runs of ?AT vs aflutter/fib which is common post-op. Was placed on amio drip, now PO by cardiac surgery. Likely will not need it oysterman -continue ASA 325mg, Lipitor 80 mg qhs, Coreg 3.125mg bid, Lisinopril 5mg ( uptitrate as tolerated) -start Lasix 20mg twice daily and K-Dur 10 mEQ daily -ok to continue Amio 200 bid, likely will not need it oysterman and can taper as OP -ok with d/c today with close/prompt OP follow-up Subjective 24 Hr Interval Summary Free Text/Dictation Patient feeling better this am. Able to ambulate in the unit without assistance. Denies SOB. Incisional pain tolerable. Exam/Review of Systems Vital Signs Vitals Vital Signs Date Time Temp Pulse Resp B/P Pulse Ox O2 Delivery O2 Flow Rate FiO2 04/29/16 08:12 89 04/29/16 07:54 98.3 15 105/65 97 Room Air 04/26/16 20:00 2.0 Intake and Output 04/28/16 04/28/16 04/29/16 15:00 23:00 07:00 Intake Total 720 ml Output Total 1000 ml Balance -280 ml Tele: sinus Exam Constitutional: alert, oriented Psych: no complaints Head: normocephalic Neck: jvd (9cm) Respiratory: diminished breath sounds, No clear to auscultation Cardiovascular: RRR, no m/r/g, no c/c/e, midline sternotomy scar covered Neurological: nl mental status, nl speech Results Result Diagram: 04/29/16 0705 04/29/16 0705 Results 24 hrs Laboratory Tests Test 04/28/16 11:58 04/28/16 17:08 04/28/16 20:10 04/29/16 01:46 Bedside Glucose 122 131 102 96 Test 04/29/16 05:35 04/29/16 07:05 04/29/16 07:57 Bedside Glucose 101 161 Anion Gap 13 Basophils # 0.0 Basophils % 0.2 Blood Urea Nitrogen 16 Calcium Level 8.9 Carbon Dioxide Level 29 Chloride Level 100 Creatinine 0.98 Eosinophils # 0.3 Eosinophils % 3.3 Glucose Level 150 Hematocrit 31.1 L Hemoglobin 10.4 L Lymphocytes # 1.1 Lymphocytes % 13.7 L Magnesium Level 2.1 Mean Corpuscular Hemoglobin 30.1 Mean Corpuscular Hemoglobin Concent 33.4 Mean Corpuscular Volume 90.1 Mean Platelet Volume 11.3 H Monocytes # 0.9 Monocytes % 10.8 Neutrophils # 5.8 Neutrophils % 70.5 Nucleated Red Blood Cells # 0.0 Nucleated Red Blood Cells % 0.0 Phosphorus Level 4.1 Platelet Count 229 # Potassium Level 3.9 Red Blood Count 3.45 L Red Cell Distribution Width 12.7 Sodium Level 138 White Blood Count 8.2 # Medications Medications Current Medications Zolpidem Tartrate (Ambien) 5 mg QHS PRN PO SLEEP Last administered on 22:29; Admin Dose 5 MG; Start 04/19/16 at 19:30 Nitroglycerin (Nitroglycerin (Sl Tab) 0.4 Mg) 1 tab Q5M PRN SL CHEST PAIN; Start 04/19/16 at 19:30 Morphine Sulfate (morphine) 4 mg Q2H PRN IV PAIN LEVEL 7-10; Start 04/19/16 at 19:30 Atorvastatin Calcium (Lipitor) 80 mg HS PO Last administered on 04/28/16 22:04 ; Admin Dose 80 MG; Start 04/19/16 at 21:00 Acetaminophen (Tylenol Tab) 650 mg Q4H PRN PO NON-CARDIAC PAIN LEVEL (1-3) Last administered on 04/28/16 20:04; Admin Dose 650 MG; Start 04/20/16 at 08:30 Morphine Sulfate (morphine) 2 mg Q2H PRN IV FOR NON CARDIAC PAIN (4-10) Last administered on 04/29/16 08:56; Admin Dose 2 MG; Start 04/20/16 at 08:30 Promethazine HCl/ Codeine (Phenergan/ Codeine) 5 ml Q4H PRN PO COUGH Last administered on 04/25/16 22:20; Admin Dose 5 ML; Start 04/22/16 at 18:00 Oxycodone/ Acetaminophen (Percocet (5/ 325)) 1 tab Q3H PRN PO PAIN LEVEL 1-5 Last administered on 04/28/16 12:54; Admin Dose 1 TAB; Start 04/24/16 at 13:00 Oxycodone/ Acetaminophen (Percocet (5/ 325)) 2 tab Q3H PRN PO PAIN LEVEL 6-10 Last administered on 04/28/16 06:01; Admin Dose 2 TAB; Start 04/24/16 at 13:00 Ondansetron HCl (Zofran Inj) 4 mg Q6H PRN IV NAUSEA AND/OR VOMITING; Start at 13:00 Famotidine (Pepcid Iv) 20 mg BID@08,20 IV Last administered on 04/29/16 08:52 ; Admin Dose 20 MG; Start 04/24/16 at 20:00 Aspirin (Aspirin) 325 mg DAILY PO Last administered on 04/29/16 08:54; Admin Dose 325 MG; Start 04/25/16 at 09:00 Insulin Aspart (Novolog Insulin Pen) NOVOLOG *MILD* ALGORI... Q4 SC Last administered on 04/29/16 08:59; Admin Dose 1 UNIT; Start 04/24/16 at 17:00 Amiodarone HCl (Cordarone) 200 mg BID GTB Last administered on 04/29/16 08:55 ; Admin Dose 200 MG; Start 04/26/16 at 09:00 Carvedilol (Coreg) 3.125 mg BID GTB Last administered on 04/29/16 08:55; Admin Dose 3.125 MG; Start 04/26/16 at 09:00 Docusate Sodium (Colace) 100 mg TID PRN PO CONSTIPATION Last administered on 09:22; Admin Dose 100 MG; Start 04/26/16 at 10:00 Miscellaneous Information 1 ea NOTE XX ; Start 04/27/16 at 08:30 Glucose (Glutose) 15 gm Q15M PRN PO DECREASED GLUCOSE; Start 04/27/16 at 08:30 Glucose (Glutose) 22.5 gm Q15M PRN PO DECREASED GLUCOSE; Start 04/27/16 at 08: 30 Dextrose (D50w Syringe) 25 ml Q15M PRN IV DECREASED GLUCOSE; Start 04/27/16 at 08:30 Dextrose (D50w Syringe) 50 ml Q15M PRN IV DECREASED GLUCOSE; Start 04/27/16 at 08:30 Glucagon (Glucagen) 1 mg Q15M PRN IM DECREASED GLUCOSE; Start 04/27/16 at 08:30 Glucose (Glutose) 15 gm Q15M PRN BUCCAL DECREASED GLUCOSE; Start 04/27/16 at 08 :30 Bisacodyl (Dulcolax) 10 mg DAILY PRN PO CONSTIPATION; Start 04/27/16 at 11:30 Polyethylene Glycol (Miralax) 17 gm BID PO Last administered on 04/28/16 22:06 ; Admin Dose 17 GM; Start 04/27/16 at 11:30 Lisinopril (Zestril) 5 mg DAILY PO Last administered on 04/29/16 09:08; Admin Dose 5 MG; Start 04/29/16 at 09:00 ANN KAUFMAN MD Apr 29, 2016 11:40
[2016-04-29] MEDS ORDERED: FUROSEMIDE 20 MG TAB PO SCH (12:00)
--- NOTE | 2016-04-29 14:36 | PDOCDIS ---
Discharge Instructions DIAGNOSIS Discharge Diagnosis: Multivessel CAD. Status post CABG. CONDITION Patient Condition: Stable HOME CARE INSTRUCTIONS: Diet Instructions: Low Fat /CholesterolSpecial Diet: 2 gram Na ACTIVITY: Activity Restrictions: Slowly Increase Activity Rest between Activity Avoid heavy lifting No Sexual Activity Do not Drive (Until cleared by cardiac surgeon) Do not operate Machinery Avoid Heavy Housework Bathing Restrictions: Tub Bath (No tub baths until cleared by cardiac surgeon.) FOLLOW UP/APPOINTMENTS Appointments 1. Conner Reed MD Specialty: Cardiothoracic Surgery Office Address: [address] [place] [address] Office 2. Angelito Stearns MD Specialty: Interventional Cardiology Office Address: [facility] [facility] [address] [place] [address] Office 3. Simon Morrison MD Specialty: Endocrinology/ Internal Medicine Office Address: [id number] [facility] [address] [address] [place] [address] Office OTHER ORDERS: Other Orders: 1. Take medications as per prescription. Take pain medications as needed. 2. Low-cholesterol, low-sodium diet, carbohydrate controlled. 3. Activities as tolerated. Slowly increase activity. Rest in between activities. 4. Follow-up with your cardiac surgeon in 1 week. 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 Please follow-up with Dr. Morrison (Internal Medicine/ Endocrinology) for primary care follow-up. Please call for appointment to see him within the next 2 weeks. 5. Call 911 or go to the nearest emergency room if you have significant chest pain, significant shortness of breath, significant swelling of the extremities, persistent fevers, persistent cough or any other unusual signs/symptoms. GOPI BALL NP Apr 29, 2016 14:36
[2016-04-29] MEDS ORDERED: AMIO200T2 GTB (14:48)
[2016-04-29] MEDS ORDERED: ATOR80TA75 PO (14:48)
[2016-04-29] MEDS ORDERED: LAS20 PO (14:48)
[2016-04-29] MEDS ORDERED: Oxycodone/Acetamin (5/325) PO (14:48)
[2016-04-29] MEDS ORDERED: ASPI325T4 PO (14:48)
[2016-04-29] MEDS ORDERED: LISI-313 PO (14:48)
[2016-04-29] MEDS ORDERED: CARV3.1260 GTB (14:48)
[2016-04-29] MEDS ORDERED: POTA10TA15 PO (14:48)
[2016-04-29] MEDS ORDERED: METF500T4 PO (14:49)
[2016-04-29] MEDS ORDERED: LEVO500T10 PO (15:34)
--- NOTE | 2016-04-30 02:37 | DS ---
DATE OF ADMISSION: 04/19/2016 DATE OF DISCHARGE: 04/29/2016 FINAL DIAGNOSES: 1. Multivessel coronary artery disease. Status post CABG x4. 2. Cardiomyopathy with ejection fraction of 25% to 30%. 3. Dyslipidemia. 4. Prediabetes. CONSULTANTS: 1. Dr. Angelito Stearns, cardiology. 2. Dr. Conner Reed, cardiac surgery. 3. Dr. Jonny Madsen, cardiology. 3. Dr. Frankie Licea, cardiology. HOSPITAL COURSE: This is a 66-year-old male who denies any past medical history who came to the emergency room with chief complaint of chest pain. The patient was having a fever as well as cough 3 days prior to the ER visit. The patient was on antibiotics and cough syrup. However, the patient continued to have pain and paramedics were called. The patient was picked up by paramedics and was given nitroglycerin with improvement in the patient's chest pain. In the emergency room, the patient was noticed to have elevated troponins with ST elevation in lead III. of interventional cardiology was called as she was on STEMI call and did not feel there was a STEMI and recommended inpatient cardiology evaluation. The patient was admitted to inpatient telemetry floor and inpatient cardiology was consulted. The patient was started on a heparin drip. A 2D echocardiogram was ordered. The patient underwent a left heart catheterization on 04/20/2016 that showed multivessel coronary artery disease and the house father recommended immediate cardiac surgery consult. The patient's 2D echocardiogram revealed ejection fraction of 25% to 30% with severe left ventricular systolic dysfunction. The patient was seen and evaluated by cardiac surgery and the patient underwent a CABG x4 on 04/24/2016. Postoperatively, the patient was transferred to the intensive care unit. The patient was weaned off the ventilator on 04/24/2016. The patient progressed well following CABG. The patient's chest tubes and other lines were removed eventually. The patient was moved out of the intensive care unit on 04/27/2016. Physical therapy evaluated the patient and the patient was progressing well with physical therapy. Meanwhile, the patient was started on beta blockers and AKOSUA inhibitors for his underlying cardiomyopathy. The patient was also noticed to have prediabetes with a hemoglobin A1c of 6.0. The patient was maintained on sliding scale insulin. The patient was maintained on high dose statins because of his underlying dyslipidemia and the current multivessel coronary artery disease. The patient was progressing well postoperatively. Postoperatively, the patient had some systemic inflammatory response syndrome with leukocytosis and febrile illness. The patient was not started on any antibiotics since it was considered that the patient has systemic inflammatory response syndrome secondary to stress from underlying cardiac surgery. Nevertheless, the patient will be started on some antibiotics for any underlying acute tracheobronchitis upon discharge. The patient had a stable hospital course. The patient was cleared by consultants to be discharged home. The patient's incision pain is well controlled. DISCHARGE DISPOSITION/PLAN: Patient will be discharged home today. The patient was instructed to take medications as per prescription. He was instructed to follow a low-cholesterol, low-sodium, carbohydrate controlled diet. The patient was instructed to resume activities as tolerated, but to slowly increase activity and to rest in between activities. He was instructed to avoid heavy lifting or sexual activity. The patient was instructed not to drive until cleared by cardiac surgeon. He was instructed not to operate heavy machinery or avoid heavy housework until cleared by cardiac surgeon. The patient was instructed to avoid tub baths until cleared by cardiac surgeon. The patient was instructed to follow up with the cardiac surgeon in 1 week and follow up with the house father in 1 week. The patient was instructed to follow up with Dr. Morrison, internal medicine/mobile architect, for primary care followup. The patient was instructed to call 911 or go to the nearest emergency room if he has any significant chest pain, shortness of breath, significant swelling of the extremities, persistent fevers, persistent cough, or any other unusual signs or symptoms. The patient was instructed to use a front-wheel walker for help. Home health was arranged for home physical therapy evaluation and home safety evaluation. The patient verbalized understanding of his discharge instructions. CONDITION AT DISCHARGE: Stable. DISCHARGE MEDICATIONS: 1. Amiodarone 200 mg p.o. b.i.d. 2. Aspirin 325 mg p.o. daily. 3. Atorvastatin 80 mg p.o. at bedtime. 4. Coreg 3.125 mg p.o. b.i.d. 5. Lasix 20 mg p.o. b.i.d. 6. Levaquin 500 mg p.o. daily x7 days. 7. Lisinopril 5 mg p.o. daily. 8. Metformin 500 mg p.o. with meals and bedtime. 9. Potassium chloride 10 mEq p.o. daily. 10. Percocet 10/325 one tablet p.o. q.6 hours p.r.n. pain (#40 tablets). PERTINENT LABORATORY, DIAGNOSTIC DATA AND PROCEDURES: 1. 04/24/2016. Coronary artery bypass grafting x4, left internal mammary artery to left anterior descending and saphenous vein graft to the proximal posterior descending and saphenous vein graft to diagonal artery 1, sequenced to obtuse marginal artery 2. 04/20/2016. Left heart catheterization showing significant CAD including mid LAD, proximal diagonal, and mid RCA. 3. 2D echocardiogram. Ejection fraction of 25% to 30%. Severe left ventricular systolic dysfunction. Stage I diastolic dysfunction. No significant valvular stenosis or regurgitation. 4. Latest CBC: WBC 8.2, hemoglobin 10.4, hematocrit 31.1, platelet count 229. 5. Latest BMP: Sodium 138, potassium 3.9, chloride 100, carbon dioxide 29, anion gap 13, BUN 16, creatinine 0.9, glucose 150, calcium 8.9, phosphorus 4.1, magnesium 2.1. 6. Fasting lipid panel: Triglycerides 174, total cholesterol 150, LDL 88, HDL 27. 7. Hemoglobin A1c 6.0. 8. Latest chest x-ray on 04/29/2016. Stable mild cardiomegaly. 9. Carotid Doppler study. Mild scattered plaque without evidence for hemodynamically significant stenosis. Antegrade flow seen within the vertebral arteries bilaterally. At this time, I would like to thank all the consultants for seeing the patient, doing the necessary procedures, and providing clinical recommendations. The case and management of this patient was fully discussed with Dr. Álvarez. Approximately 45 minutes was spent on coordinating the discharge on this patient. GOPI ÁLVAREZ MD AM/NTS Conf#: [id number] DID#: [id number]
[2016-04-30] MEDS ORDERED: POTASSIUM CHLORIDE (SR) 10 MEQ TAB PO SCH (09:00)
== END 2016-04-29 16:53 | disposition home health service (06) | DRG 233 ==
LOC: E/R 15:24 → TEL 18:03 → ICU 21:32 → TEL 04-21 23:15 → ICU 04-24 11:07 → MS4 04-27 01:00
PROVIDERS: ADMIT Internal Medicine; ATTEND Internal Medicine
PROC: B2011ZZ Plain Radiography of Multiple Coronary Arteries using Low Osmolar Contrast (ICD-10-PCS; 2016-04-20)
PROC: 4A023N7 Measurement of Cardiac Sampling and Pressure, Left Heart, Percutaneous Approach (ICD-10-PCS; 2016-04-20 07:30)
PROC: 021209W Bypass Coronary Artery, Three Arteries from Aorta with Autologous Venous Tissue, Open Approach (ICD-10-PCS; 2016-04-24)
PROC: 06BY0ZZ Excision of Lower Vein, Open Approach (ICD-10-PCS; 2016-04-24)
PROC: 5A1221Z Performance of Cardiac Output, Continuous (ICD-10-PCS; 2016-04-24)
PROC: 02100A9 Bypass Coronary Artery, One Artery from Left Internal Mammary with Autologous Arterial Tissue, Open Approach (ICD-10-PCS; principal; 2016-04-24 07:30)
DX: I21.4 Non-ST elevation (NSTEMI) myocardial infarction (principal); I50.21 Acute systolic (congestive) heart failure; I95.9 Hypotension, unspecified; R65.10 Systemic inflammatory response syndrome (SIRS) of non-infectious origin without acute organ dysfunction; I25.10 Atherosclerotic heart disease of native coronary artery without angina pectoris; I47.1 Supraventricular tachycardia; Z87.891 Personal history of nicotine dependence; R05 Cough; R73.03 Prediabetes; I25.5 Ischemic cardiomyopathy
CPT/HCPCS: 36415; 36600; 71010; 80048; 80053; 80061; 82550; 82553; 82803; 82962; 83036; 83735; 84100; 84132; 84436; 84479; 84484; 85014; 85025; 85610; 85730; 86850; 86900; 86901; 86920; 87081; 93005; 93306; 93312; 93325; 93458; 93880; 94002; 94770; 96372; 96374; 96375; 97116; 97163; 97530; J1940; C1769; C1887; J0171; J0282; J0690; J1170; J1265; J1644; J1650; J1815; J2001; J2060; J2150; J2250; J2260; J2270; J2370; J2405; J2440; J2720; J3010; J3370; J3475; J3480; J7030; J7040; J7042; J7070; P9045; P9047; Q9967